=== PATIENT | male | born 1960 | race Caucasian/White ===

== ENCOUNTER 2024-09-17 14:26 | Emergency (ER) | payer MEDICARE, SELFPAY ==
[2024-09-17 14:45] VITALS: BP 138/73; PULSE 103; RESP 20; TEMP 36.5; O2SAT 98
--- NOTE | 2024-09-17 15:52 | ED_ITS ---
HPI - Extremity Problem General Chief complaint: Extremity Problem,Nontraumatic Stated complaint: Right Ankle /Foot Swelling/Left Toes Source: patient Mode of arrival: ambulatory Limitations: no limitations History of Present Illness HPI Narrative: Pt presents for evaluation of right ankle and heel pain. Symptom onset two days ago. He has a history of gout and this feels similar. Pain is constant, sharp, 9/10 in severity. He was previously on allopurinol but stopped taking it because he wanted to see if he no longer needed it. He has decreased ROM. Movement makes his pain worse. He has a chronic deformity in the right first MTP joint pain. He is not taking any medication for his symptoms. He drinks alcohol about two days per week, with twelve drinks at a time. Related Data Home Medications Medication Instructions Recorded Confirmed pantoprazole 40 mg tablet,delayed mg PO 09/17/24 release tamsulosin 0.4 mg capsule mg PO 09/17/24 tizanidine 2 mg tablet mg 09/17/24 venlafaxine 150 mg mg PO 09/17/24 capsule,extended release 24 hr Allergies Allergy/AdvReac Type Severity Reaction Status Date / Time No Known Allergies Allergy Verified 09/17/24 14:53 Review of Systems Review of Systems: CONSTITUTIONAL: Denies fever, chills, or sweats. EYES: Denies visual changes, redness, or discharge. ENT: Denies rhinorrhea, congestion, sore throat, or otalgia. CARDIOVASCULAR: Denies chest pain, palpitations, or edema. RESPIRATORY: Denies cough or dyspnea. GASTROINTESTINAL: Denies abdominal pain, nausea, vomiting, or diarrhea. GENITOURINARY: Denies dysuria or hematuria. SKIN: Denies rash or itching. MUSCULOSKELETAL:Reports pain in the right ankle and heel NEUROLOGIC: Denies headache, numbness, dizziness, or weakness. PSYCHIATRIC: Denies anxiety or depression. [facility] Past Medical History Medical History Gout Surgical History Surgical History No pertinent past surgical history Family History Family History Mother Family history non-contributory Social History Social History Alcohol intake: current Drinks per week: 24 Substance use: never Gender identity (if verbalized by the patient): Male Exam Narrative: GENERAL: Well-appearing, well-nourished, and in no acute distress. HEAD: Normocephalic, atraumatic. EYES: PERRLA and EOMI. ENT: Nares clear, no rhinorrhea or epistaxis. Mucous membranes moist. Oropharynx without tonsillar hypertrophy exudate or other lesions. Bilateral TMs pearly andrews nonbulging NECK: Supple. No adenopathy or masses. No carotid bruits or JVD CHEST: Clear to auscultation. No respiratory distress. No wheezes rales or rhonchi HEART: Regular rate and rhythm. No murmur heard. Normal peripheral pulses. ABDOMEN: Soft, nontender, nondistended, normal active bowel sounds. EXTREMITIES: There is a visible deformity at the 1st right MTP joint. There is welling present to the right ankle. Anterior aspect of the right ankle is tender to palpation. Decreased dorsi and plantar flexion of the right foot secondary to pain. SKIN: Warm, dry, no rash. NEURO: No focal deficits. Alert and oriented x3. PSYCH: Normal mood and affect. Course Course Emergency Course: This is a 64-year-old male who presented for evaluation of pain in the right ankle and heel. He has a history of gout and this feels similar. I did offer to perform an x-ray. He declined. I think this is reasonable. It is a classic gout presentation. Will discharge with prednisone and [place]. Follow-up with primary provider. Limit alcohol as it may be contributing. Go to the ER for worsening symptoms. Pt in agreement with plan of care. Level of Care: Express Care Visit Vital Signs Vital signs: Vital Signs Temperature 36.5 C 09/17/24 14:45 Pulse Rate 103 H 09/17/24 14:45 Respiratory Rate 20 09/17/24 14:45 Blood Pressure 138/73 09/17/24 14:45 Pulse Oximetry 98 09/17/24 14:45 Temperature 36.5 C 09/17/24 14:45 Pulse Rate 103 H 09/17/24 14:45 Respiratory Rate 20 09/17/24 14:45 Blood Pressure 138/73 09/17/24 14:45 Pulse Oximetry 98 09/17/24 14:45 Discharge Plan Discharge Clinical Impression: Acute gout of right ankle Patient Disposition: Home, Self-Care Condition: Stable Instructions: Antibiotic Form, Gout (ED) Patient Language: Kyrgyz Prescriptions: New prednisone 50 mg tablet 50 mg PO DAILY Qty: 5 0RF hydrocodone-acetaminophen 5-325 mg tablet 1 - 2 tablet PO Q6H PRN (Reason: pain) Qty: 20 0RF No Action tizanidine 2 mg tablet venlafaxine 150 mg capsule,extended release 24hr PO tamsulosin 0.4 mg capsule PO pantoprazole 40 mg tablet,delayed release (DR/EC) PO Follow-up/Referrals: Yuri Clark MD [Physician] - Time of Disposition: 15:31
== END 2024-09-17 15:35 | disposition home or self-care (01) ==
PROVIDERS: Emergency Provider Nurse Practitioner
DX: M10.9 Gout, unspecified (principal)
CPT/HCPCS: 99203; G0463

== ENCOUNTER 2025-03-29 13:25 | Emergency (ER) | payer MEDICARE, SELFPAY ==
[2025-03-29 13:34] VITALS: BP 120/86; PULSE 87; RESP 20; TEMP 36.2; O2SAT 99
--- OUTSIDE RECORDS SUMMARY | 2025-03-29 13:40 | XMS_ITS | Encounter Summary ---
Author Organization [facility] Address [address] [place] [address] Phone Care Team Providers Care Machine Puller Name Role Phone Bruno Prather MD Primary Care Provider [phone] Angie Arnold DO Primary Care Provider [phone] Moshe Carrasco LIVESTOCK TRADER, GRAIN ELEVATOR CLERK Unavailable [phone] Agatha Vallecillo LIVESTOCK TRADER, GRAIN ELEVATOR CLERK Unavailable [phone] Reason for Visit * Reason Comments Medication Refill Encounter Details Date Type Department Care Team (Late st Contact Info) Description 05/05/2023 Refill [facility] - Family Medicine [facility] [address] [place] [id number] Bruno Prather MD [address] [place] [address] Medication Refill Social History Tobacco Use Types Packs/Day Years Used Date Smoking Tobacco: Former Cigarettes Q uit: 02/23/2019 Smokeless Tobacco: Never Alcohol Use Standard Drinks/Week Comments Not Currently 6 (1 standard drink = 0.6 oz pur e alcohol) PHQ-2 Answer Date Recorded Total Score - Questions 1-9 13 05/11 Sexually Active Control Partners Comments Not Currently Sex and Gender Information Value Date Recorded Sex Assigned at Not on file Legal Sex Male 11:38 PM CDT Gender Identity Not on file Sexual Orientation Not on file documented as of this encounter Plan of Treatment Upcoming Encounters Date Type Department Care Team (Late st Contact Info) Description 04/30/2025 1:20 PM CDT Office Visit [facility] - Family Medicine - [place] [address] [place] [address] Angie Arnold DO 2 [facility] [place] [address] 07/23/2025 1:00 PM CDT Office Visit [facility] - Pulmonology & Sleep Medicine - [place] [address] [place] [id number] Agatha Vallecillo APRN, GRAIN ELEVATOR CLERK #[address] [address] documented as of this encounter Visit Diagnoses Not on filedocumented in this encounter Additional Health Concerns Assessment Noted Time PHQ-9 Depression Total Score: 13 022 1:00 PM CDT documented as of this encounter Care Teams Machine Puller Relationship Specialty Start Date End Date Bruno Prather MD PCP - General Family Medicine 10/28/20 03/21/24 Angie Arnold DO 2 [facility] ED [address] [address] PCP - General Family Medicine 03/24/24 Moshe Carrasco APRN, GRAIN ELEVATOR CLERK [address] [place] [address] Nurse Practitioner Advanced Practice Nurse 05/11/24 Agatha Vallecillo APRN, GRAIN ELEVATOR CLERK #[address] [address] Nurse Practitioner Advanced Practice Nurse 06/15/24 documented as of this encounter
--- OUTSIDE RECORDS SUMMARY | 2025-03-29 13:40 | XMS_ITS | Clinical Summary ---
Author Organization [facility] Address [address] [place] [address] Phone Care Team Providers Care Floor Director Name Role Phone Angie Arnold Primary Care Provider [phone] Moshe Carrasco TIMBER DEADENER, OTR [employer] TRUCK DRIVER Unavailable [phone] Agatha Vallecillo TIMBER DEADENER, OTR [employer] TRUCK DRIVER Unavailable Allergies No known active allergies Medications Cyanocobalamin (VITAMIN B-12 PO) Take by mouth. Active finasteride (PROSCAR) 5 MG TabletIndication s:Benign non-nodular prostatic hyperplasia with lower urinary tract symptoms Take 1 Tablet by mouth daily. 90 Tablet 1 09/26/2024 Active pantoprazole (PROTONIX) 40 MG Tablet Delayed Response Take 1 Tablet by mouth daily. 90 Tablet 1 09/26/2024 Active tamsulosin (FLOMAX) 0.4 MG Capsule Take 1 Capsule by mouth daily. 90 Capsule 1 09/26/2024 Active venlafaxine (EFFEXOR-XR) 150 MG CAPSULE SR 24 HR Take 1 Capsule by mouth daily. 90 Capsule 1 09/26/2024 Active Naproxen Sodium (Aleve) 220 MG Capsule Take by mouth. Active Active Problems Problem Noted Date Diagnosed Date Personal history of tobacco use 06/15/2024 Arthritis of right hip 09/08/2021 Overview (11/20/2021): Last Assessment & Plan: Patient has end-stage arthritis of the right hip with collapse of the femoral head and complete joint space obliteration radiographically. He has minimal function of the hip is markedly debilitated. He wants proceed with hip replacement surgery having failed respond to conservative measures. Patient will be enrolled in a total hip protocol. Preoperative labs will be checked to assess him for any potential wound healing issues. He is to be taking iron two weeks prior to surgery in preparation for perioperative blood loss. The risks of hip replacement surgery include infection, incisional numbness, neurovascular compromise, blood loss, blood clots, limb length inequality, fracture, dislocation, where with possible need for revision, wound he has since, medical and anesthetic risks including . 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/2015): L FVC 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 Voice disturbance Overview (08/21/2015): Spastic Dysphonia Resolved Problems Problem Noted Date Diagnosed Date Resolved Date Snoring 06/15/2024 10/23/2024 Hypertension 05/04/2016 05/21/2022 Hyperlipidemia 02/24/2014 05/21/2022 Overview (04/03/2021): HYPERLIPIDEMIA NEC/NOS Encounters Date Type Department Care Team Description 01/23/2025 10:00 AM CDT Office Visit [facility] - Pulmonology & Sleep Medicine - [place] [address] [place] [address] Agatha Vallecillo, TIMBER DEADENER, CEFERINO GOPAL on CPAP (Primary Dx); Personal history of tobacco use Discharge Disposition: Discharged to home or Selfcare 01/23/2025 Travel from Last 3 Months Immunizations Immunization Administration Dates Next Due Influenza Vaccine 07/09/2011 Influenza Vaccine, Quadrivalent, PF 07/22/2017,1 10/12/2015 PUR FLU 3+ YRS PRES FREE QUAD IM 08/12/2016 Family History Medical History Relation Name Comments Alcohol Abuse Father Diabetes Mother Relation Name Status Comments Father Mother Social History Tobacco Use Types Packs/Day Years Used Date Smoking Tobacco: Former Cigarettes Q uit: 02/23/2019 Smokeless Tobacco: Never Tobacco Cessation:Counseling Given: No Alcohol Use Standard Drinks/Week Comments Not Currently 6 (1 standard drink = 0.6 oz pur e alcohol) [facility] Utilities Answer Date Recorded In the past 12 months has e electric, gas, oil, or water company threatened to shut off services in your home? No 03/24/2024 Social Connection and Isolation Panel Answer Date Recorded In a typical week, how many times do you talk on the phone with family, friends, or neighbors? Once a week 03/24/2024 How often do you get together with friends or re latives? Twice a week 03/24/2024 Attends Restorationist Services Not on file 03/24 Active Member of Clubs or Organizations Not on f ile 03/24/2024 Attends Club or Organization Meetings Not on eriberto e 03/24/2024 Marital Status Not on file 03/24/2024 AUDIT-C Answer Date Recorded Q1: How often do you have a drink containing alc ohol? 2-4 times a month 03/24/2024 Q2: How many drinks containi ng alcohol do you have on a typical day when you are drinking? 1 or 2 03/24/2024 Frequency of Binge Drinking Not on file 03/11 Overall Financial Resource Strain (CARDIA) Answe r Date Recorded How hard is it for you to pa y for the very basics like food, housing, medical care, and heating? Not hard at all 03/24/2024 PHQ-2 Answer Date Recorded Total Score - Questions 1-9 0 05/11 [facility] [place] [facility] Occupat ional Health - Occupational Stress Questionnaire Answer Date Recorded Do you feel stress - tense, restless, nervous, or anxious, or unable to sleep at night because your mind is troubled all the time - these days? Only a little 03/24/2024 Exercise Vital Sign Answer Date Recorde d On average, how many days pe r week do you engage in moderate to strenuous exercise (like a brisk walk)? 3 days 03/24/2024 On average, how many minutes do you engage in exercise at this level? 30 min 03/24/2024 Hunger Vital Sign Answer Date Recorded Within the past 12 months, y ou worried that your food would run out before you got the money to buy more. Sometimes true Within the past 12 months, t he food you bought just didn't last and you didn't have money to get more. Sometimes true PRAPARE - Transportation Answer Date Re corded In the past 12 months, has l ack of transportation kept you from medical appointments or from getting medications? Yes 03/11 In the past 12 months, has l ack of transportation kept you from meetings, work, or from getting things needed for daily living? Yes 03/24/2024 Housing Stability Vital Sign Answer Dilan e Recorded In the last 12 months, was t here a time when you were not able to pay the mortgage or rent on time? Yes 03/24/2024 Number of Times Moved in the Last Year Not on fi le 03/24/2024 At any time in the past 12 m [place], were you homeless or living in a snf (including now)? No 03/24/2024 Education Answer Date Recorded What is the highest level of school you have completed or the highest degree you have received? 12th grade 06/30/2023 Sexually Active Control Partners Comments Not Currently Sex and Gender Information Value Date Recorded Sex Assigned at Not on file Legal Sex Male 11:38 PM CDT Gender Identity Not on file Sexual Orientation Not on file Last Filed Vital Signs Vital Sign Reading Time Taken Comments Blood Pressure 122/68 01/23/2025 9:49 AM CDT Pulse 79 01/23/2025 9:49 AM CDT Temperature 36.6 C (97.8 F) 01/23/2025 9:49 AM CDT Respiratory Rate 20 01/23/2025 9:49 AM CDT Oxygen Saturation 95% 01/23/2025 9:49 AM CDT Inhaled Oxygen Concentration - - Weight 128.7 kg (283 lb 12.8 oz) 01/23/2025 9:49 AM CDT Height 175.3 cm (5' 9) 01/23/2025 9:49 AM CDT Body Mass Index 41.91 01/23/2025 9:49 AM CDT Plan of Treatment Upcoming Encounters Date Type Department Care Team (Late st Contact Info) Description 04/30/2025 1:20 PM CDT Office Visit [facility] - Family Medicine - [place] [address] [place] [address] Angie Arnold, DO 2 [facility]. [address] [place] [address] 07/23/2025 1:00 PM CDT Office Visit [facility] - Pulmonology & Sleep Medicine - [place] [address] [place] [address] Agatha Vallecillo APRN, OTR [employer] TRUCK DRIVER [address]2 [facility] [address] [place] [address] Health Maintenance Due Date Last Done Comments TdaP Immunization 1962 Cologuard 2007 Immunochemical Fecal Occult Blood 2007 Pneumococcal Immunization (50+ years) (1 of 1 - PCV) 2012 Zoster Immunization (1 of 2) 2012 Respiratory Syncytial Virus (RSV) Immunization (Adult) (1 - Risk 60-74 years 1-dose series) 2022 Colonoscopy 12/19/2023 12/18/2013 Colorectal Cancer Screening 12/19/2023 Influenza Immunization Discontinued 7, 08/12/2016, 08/12/2016, Additional history exists Hepatitis C Virus (HCV) Screening Completed 09/13/2023 PSA Discussion Completed 03/29/2024, 01/2023, 05/04/2016 Hepatitis B Immunization Aged Out No longer eligible based on patient's age to complete this topic Human Papillomavirus (HPV) Immunization Aged Out No longer eligible based on patient's age to complete this topic Meningococcal Immunization (ACWY) Aged Out No longer eligible based on patient's age to complete this topic Rotavirus Immunization Aged Out No lo nger eligible based on patient's age to complete this topic SARS-COV-2 Immunization Discontinued Procedures Procedure Name Priority Date/Time Associated Diagnosis Comments PSA SCREEN Routine 03/29/2024 12:14 PM CDT Routine adult health maintenance HEPATITIS C ANTIBODY Routine 09/13/2023 1:50 PM ANALYSIS SPECIALIST Need for hepatitis C screening test HM COLONOSCOPY Routine 12/18/2013 from Last 3 Months or Most Recently Relevant to Health Maintenance Results * PSA SCREEN (03/29/2024 12:14 PM CDT) PSA SCREEN, TOTAL 0.87 <4.00 ng/mL 03/29/2024 2:16 PM CDT [facility] Blood Venipuncture / Unknown 03/29/2024 12:14 PM CDT 03/29/2024 1:12 PM CDT Narrative [facility] - 03/29/2024 2:16 PM CDT The ALINITY Total PSA assay is a Chemiluminescent Microparticle Immunoassay (CMIA) for the quantitative determination of total PSA (both free PSA and PSA complexed to [id number]) in human serum. Total PSA values obtained with different assay methods, including Willard PSA assays, cannot be used interchangeably. us Angie Arnold DO CHEMISTRY ORDERABLES Final Re sult [facility] [address] [place] [address] * HEPATITIS C ANTIBODY (09/13/2023 1:50 PM ANALYSIS SPECIALIST) hepatitis C antibody 0.08 <1 S/CO [facility] ARCH [id number] B 09/13/2023 9:19 PM ANALYSIS SPECIALIST [facility] Comment: Signal/Cutoff ratio < 0.79 is Nondetected Signal/Cutoff ratio 0.80-0.99 is Grayzone Signal/Cutoff ratio > 0.99 is Detected Supplemental assays are recommended if signal/cutoff ratio is >/=1.00. Signal/cutoff ratio result >/= 5.00 is 97% predictive of positivity for recombinant immunoblot assay (RIBA) and will be reported to the [place] Department of Public Health as required. Blood Venipuncture / Unknown 09/13/2023 1:50 PM ANALYSIS SPECIALIST 09/13/2023 1:50 PM ANALYSIS SPECIALIST Bruno Prather MD CHEMISTRY ORDERABLES Final Resul t [facility] [address] [place] [address], [place] * COLONOSCOPY (12/18/2013) Fletcher Brooke DO PROCEDURE/MINOR SURGICAL ORDERA BLES Final Result from Last 3 Months or Most Recently Relevant to Health Maintenance Insurance MEDICARE C [facility] Care Teams Floor Director Relationship Specialty Start Date End Date Angie Arnold DO 2 [facility] [address] [place] [address] PCP - General Family Medicine 03/24/24 CarrascoMoshe zapata APRN, OTR [employer] TRUCK DRIVER [address] [place] [address] Nurse Practitioner Advanced Practice Nurse 05/11/24 Agatha Vallecillo, MATEUS, OTR [employer] TRUCK DRIVER [address] [address] Nurse Practitioner Advanced Practice Nurse 06/15/24
--- OUTSIDE RECORDS SUMMARY | 2025-03-29 13:40 | XMS_ITS | Encounter Summary ---
Author Organization [facility] Address [address] [place] [address] Phone Care Team Providers Care Railroad Yard Worker Name Role Phone Bruno Prather MD Primary Care Provider [phone] Angie Arnold DO Primary Care Provider Moshe Carrasco CLEARANCE REPRESENTATIVE, EXTENSION DIVISION DIRECTOR Unavailable [phone] Agatha Vallecillo CLEARANCE REPRESENTATIVE, EXTENSION DIVISION DIRECTOR Unavailable [phone] Reason for Visit * Reason Comments Medication Refill Encounter Details Date Type Department Care Team (Late st Contact Info) Description 05/18/2022 Refill [facility] - Family Medicine [facility] [address] [place] [phone] Lincoln Rosario, MATEUS, EXTENSION DIVISION DIRECTOR [address] [address] Medication Refill Social History Tobacco Use Types [...] on file Sexual Orientation Not on file COVID-19 Exposure Response Date Recorded In the last 10 days, have yo u been in contact with someone who was confirmed or suspected to have Coronavirus/COVID-19? No / Unsure 05/21/2022 1:00 PM CDT documented as of this encounter Miscellaneous Notes * Telephone Encounter - Daniela Matthews RN - 05/19/2022 3:16 PM CDT Medication failed the protocol, provider to review and approve the medication order if appropriate. Requested Prescriptions Pending Prescriptions Disp Refills venlafaxine (EFFEXOR-XR) 150 MG CAPSULE SR 24 HR [Pharmacy Med Name: VENLAFAXINE HCL ER 150 MG CAP]90 Capsule 1 Sig: TAKE 1 CAPSULE BY MOUTH EVERY DAY SNRI (6 Month Refill Only) Protocol Failed - 05/18/2022 6:29 PM Failed - Patient has established therapy with Serotonin-Norepinephrine Reuptake Inhibitors for at least 6 months Passed - Visit with relevant provider in past 6 months or upcoming 90 days Recent Visits Date Type Provider Dept 12/30/21 Office Visit Lincoln Rosario APRN, EXTENSION DIVISION DIRECTOR [facility] 11/20/21 Office Visit Bruno [facility] Showing recent visits within past 182 days and meeting all other requirements Future Appointments Date Type Provider Dept 05/21/22 Appointment Bruno Prather MD [facility] Showing future appointments within next 90 days and meeting all other requirements Passed - Has an encounter in the past 6 months with a depression or anxiety visit diagnosis documented in this encounter Plan of Treatment Upcoming Encounters Date Type Department Care Team (Late st Contact Info) Description 04/30/2025 1:20 PM CDT Office Visit [facility] Family Medicine - [place] [address] [place] [address] Angie Arnold, DO 2 [facility]. [address] [place] [address] 07/23/2025 1:00 PM CDT Office Visit [facility] - Pulmonology & Sleep Medicine [facility] [address] [place] [address] Agatha Vallecillo APRN, CEFERINO [address] [facility] [address] [place] [address] documented as of this encounter Visit Diagnoses Diagnosis Anxiety Anxiety state, unspecified documented in this encounter Additional Health Concerns Assessment Noted Time PHQ-9 Depression Total Score: 0 07/18/20 20 3:34 PM CDT documented as of this encounter Care Teams Railroad Yard Worker Relationship Specialty Start Date End Date Bruno Prather MD PCP - General Family Medicine 10/28/20 03/21/24 Angie Arnold DO 2 [facility] ED [address] [address] PCP - General Family Medicine 03/24/24 Moshe Carrasco APRN, CEFERINO [address] [facility] [address] Nurse Practitioner Advanced Practice Nurse 05/11/24 Agatha Vallecillo APRN, CEFERINO [address] [address] Nurse Practitioner Advanced Practice Nurse 06/15/24 documented as of this encounter
--- OUTSIDE RECORDS SUMMARY | 2025-03-29 13:40 | XMS_ITS | Encounter Summary ---
Author Organization [facility] Address [address] [place] [address] Phone Care Team Providers Care Shuttle Car Operator Name Role Phone Bruno Prather MD Primary Care Provider [phone] Angie Arnold DO Primary Care Provider [phone] Moshe Carrasco LAYOUT WORKER, ASSEMBLER EQUIPMENT Unavailable + [phone] Agatha Vallecillo LAYOUT WORKER, ASSEMBLER EQUIPMENT Unavailable [phone] Reason for Visit * Reason Comments Medication Refill Encounter Details Date Type Department Care Team (Late st Contact Info) Description 01/04/2023 Refill [facility] Medical Group - Family Medicine [facility] #2 [place] [address] Larry Vásquez MD #[address] [address] Medication Refill Social History Tobacco Use Types [...] Recorded In the last 10 days, have natalie u been in contact with someone who was confirmed or suspected to have Coronavirus/COVID-19? No / Unsure 01/04/2023 2:10 PM CDT documented as of this encounter Miscellaneous Notes * Telephone Encounter - Daniela Matthews RN - 01/05/2023 8:07 AM CDT Per nursing clinical judgement, provider to review and approve the medication(s) order(s) if appropriate. Requested Prescriptions Pending Prescriptions Disp Refills tamsulosin (FLOMAX) 0.4 MG Capsule [Pharmacy Med Name: TAMSULOSIN HCL 0.4 MG CAPSULE] 90 Capsule 2 Sig: TAKE 1 CAPSULE BY MOUTH EVERY DAY Benign Prostatic Hyperplasia Medications Protocol Passed - 01/04/2023 5:47 PM Passed - Visit with relevant provider in past 12 months or upcoming 90 days Recent Visits Date Type Provider Dept 01/04/23 Office Visit Bruno Prather MD [facility] 10/08/22 Office Visit Lincoln Rosario APRN, CEFERINO [facility] 05/21/22 Office Visit Bruno Prather MD [facility] Showing recent visits within past 365 days and meeting all other requirements Future Appointments No visits were found meeting these conditions. Showing future appointments within next 90 days and meeting all other requirements documented in this encounter Plan of Treatment Upcoming Encounters Date Type Department Care Team (Late st Contact Info) Description 04/30/2025 1:20 PM CDT Office Visit [facility] Medical [facility] - Family Medicine - [place] [address]2 [place] [address] Angie Arnold, DO 2 [facility]. [address] [place] [address] 07/23/2025 1:00 PM CDT Office Visit [facility] Medical [facility] - Pulmonology & Sleep Medicine - [place] [address]2 [place] [address] Agatha Vallecillo APRN, ASSEMBLER EQUIPMENT #2 [facility] [address] [place] [address] documented as of this encounter Visit Diagnoses Not on filedocumented in this encounter Additional Health Concerns Assessment Noted Time PHQ-9 Depression Total Score: 13 022 1:00 PM CDT documented as of this encounter Care Teams Shuttle Car Operator Relationship Specialty Start Date End Date Bruno Prather MD PCP - General Family Medicine 10/28/20 03/21/24 Angie Arnold DO 2 [facility] [place] [address] PCP - General Family Medicine 03/24/24 Moshe Carrasco APRN, CEFERINO #2 [place] [address] Nurse Practitioner Advanced Practice Nurse 05/11/24 Agatha Vallecillo APRN, CEFERINO #2 [facility] [address] [place] [address] Nurse Practitioner Advanced Practice Nurse 06/15/24 documented as of this encounter
--- OUTSIDE RECORDS SUMMARY | 2025-03-29 13:40 | XMS_ITS | Encounter Summary ---
Author Organization [facility] Address [address] [place] [address] Phone Care Team Providers Care Creative Services Specialist Name Role Phone Bruno Prather MD Primary Care Provider Angie Arnold DO Primary Care Provider Moshe Carrasco HOTEL MAINTENANCE TECHNICIAN, BRINE PROCESS OPERATOR Unavailable [phone] Agatha Vallecillo HOTEL MAINTENANCE TECHNICIAN, BRINE PROCESS OPERATOR Unavailable [phone] Reason for Visit * Reason Comments Medication Refill Encounter Details Date Type Department Care Team (Late st Contact Info) Description 01/07/2022 Refill [facility] Medical Group - Family Medicine [facility] #2 [place] [id number] Bruno Prather MD [address]1 [place] [address] Medication Refill Social History Tobacco Use Types Packs/Day Years Used Date Smoking Tobacco: Former Cigarettes Q uit: 02/23/2019 Smokeless Tobacco: Never Alcohol Use Standard Drinks/Week Comments Not Currently 6 (1 standard drink = 0.6 oz pur e alcohol) PHQ-2 Answer Date Recorded Total Score - Questions 1-9 0 05/2020 Sexually Active Control Partners Comments Not Currently Sex and Gender Information Value Date Recorded Sex Assigned at Not on file Legal Sex Male 11:38 PM CDT Gender Identity Not on file Sexual Orientation Not on file COVID-19 Exposure Response Date Recorded In the last 10 days, have natalie dodd been in contact with someone who was confirmed or suspected to have Coronavirus/COVID-19? No / Unsure 12/30/2021 4:08 PM CDT documented as of this encounter Miscellaneous Notes * Telephone Encounter - Daniela Matthews RN - 01/08/2022 7:50 AM CDT Medication failed the protocol, provider to review and approve the medication order if appropriate. Requested Prescriptions Pending Prescriptions Disp Refills cyclobenzaprine (FLEXERIL) 5 MG Tablet [Pharmacy Med Name: CYCLOBENZAPRINE 5 MG TABLET] 90 Tablet 0 Sig: TAKE 1 TABLET BY MOUTH THREE TIMES A DAY NEEDED FOR MUSCLE SPASMS Not Delegated - Muscle Relaxants Protocol Failed - 01/07/2022 12:41 PM Failed - This refill cannot be delegated Passed - Visit with relevant provider in past 12 months or upcoming 90 days Recent Visits Date Type Provider Dept 12/30/21 Office Visit Lincoln Rosario APRN, CEFERINO [facility] 11/20/21 Office Visit Bruno Prather MD [facility] 07/25/21 Office Visit Bruno Prather MD [facility] 04/03/21 [facility] 01/17/21 Office Visit Bruno Prather MD [facility] Showing recent visits within past 365 days and meeting all other requirements Future Appointments No visits were found meeting these conditions. Showing future appointments within next 90 days and meeting all other requirements documented in this encounter Plan of Treatment Upcoming Encounters Date Type Department Care Team (Late st Contact Info) Description 04/30/2025 1:20 PM CDT Office Visit [facility] Medical Group - Family Medicine - [place] [address] [place] [address] Angie Arnold, DO 2 [facility] ED [facility]. [address] [place] [address] 07/23/2025 1:00 PM CDT [facility] - [place] #2 [place] [address] Agatha Vallecillo APRN, BRINE PROCESS OPERATOR #2 [facility] [address] [place] [address] documented as of this encounter Visit Diagnoses Not on filedocumented in this encounter Additional Health Concerns Assessment Noted Time PHQ-9 Depression Total Score: 0 07/18/20 20 3:34 PM CDT documented as of this encounter Care Teams Creative Services Specialist Relationship Specialty Start Date End Date Bruno Prather MD PCP - General Family Medicine 10/28/20 03/21/24 Angie Arnold DO 2 [facility] ED [facility] [address] [place] [address] PCP - General Family Medicine 03/24/24 Moshe Carrasco APRN, BRINE PROCESS OPERATOR #2 [place] [address] Nurse Practitioner Advanced Practice Nurse 05/11/24 Agatha Vallecillo APRN, BRINE PROCESS OPERATOR #2 [facility] [address] [place] [address] Nurse Practitioner Advanced Practice Nurse 06/15/24 documented as of this encounter
--- OUTSIDE RECORDS SUMMARY | 2025-03-29 13:41 | XMS_ITS | Encounter Summary ---
Author Organization [facility] Address [address] [place] [address] Phone Care Team Providers Care Directory Compiler Name Role Phone Angie Arnold DO Primary Care Provider [phone] Moshe Carrasco MVA REACTOR OPERATOR, FLIGHT ENGINEER MANAGER Unavailable + [phone] Agatha Vallecillo MVA REACTOR OPERATOR, FLIGHT ENGINEER MANAGER Unavailable [phone] Reason for Visit * Reason Comments Medication Refill Encounter Details Date Type Department Care Team (Late st Contact Info) Description 03/24/2024 Refill [facility] Medical Group - Family Medicine [facility] #2 [place] [address] Bruno Prather MD #1 [place] [address] Medication Refill Social History Tobacco Use Types Packs/Day Years Used Date Smoking Tobacco: Former Cigarettes Q uit: 02/23/2019 Smokeless Tobacco: Never Alcohol Use Standard Drinks/Week Comments Not Currently 6 (1 standard drink = 0.6 oz pur e alcohol) [facility] Utilities Answer Date Recorded In the past 12 months has [employer] electric, gas, oil, or water company threatened to shut off services in your home? No 03/24/2024 Social Connection and Isolation Panel Answer Date Recorded In a typical week, how many times do you talk on the phone with family, friends, or neighbors? Once a week 03/24/2024 How often do you get together with friends or re latives? Twice a week 03/24/2024 Attends [employer] Not on file 03/24 Active Member [...] Recorded Total Score - Questions 1-9 0 08/0 12/2022 [facility] - Occupational Stress Questionnaire Answer Date Recorded [...] any time in the past 12 m [facility], were you homeless or living in a detention (including now)? No 03/24/2024 Education Answer Date [...] on file documented as of this encounter Functional Status * Q1: How often do you have a drink containing alcohol? Answer Date of Assessment Author 2-4 times a month 03/24/2024 12:54 PM CDT [facility] [place] * Q2: How many drinks containing alcohol do you have on a typical day when you are drinking? Answer Date of Assessment Author 1 or 2 03/24/2024 12:54 PM T [facility] [place] * Question Answer Date of Assessment Author Little interest or pleasure in doing things Not at all 03/24/2024 12:54 PM JULEET [place] Crooks MA Feeling down, depressed, or hopeless Not at all 03/24/2024 12:54 PM CDT Ann Marie Crooks MA * Over the past 2 weeks, how often have you been bothered by any of the following problems? Question Answer Date of Assessment Author Patient Health Questionnaire-2 Score 0 03/24/2024 12:54 PM CDT Sierra Crooks MA documented as of this encounter Miscellaneous Notes * Telephone Encounter - Daniela Matthews RN - 03/24/2024 5:01 PM CDT Medication(s) refilled and signed per [facility] Chronic Medication Refill Standing Order for Pediatricand Adult Patients. Requested Prescriptions Pending Prescriptions Disp Refills pantoprazole (PROTONIX) 40 MG Tablet Delayed Response [Pharmacy Med Name: PANTOPRAZOLE SOD DR 40 MGTAB] 90 Tablet 1 Sig: TAKE 1 TABLET BY MOUTH EVERY DAY Proton Pump Inhibitors Protocol Passed - 03/24/2024 3:45 PM Passed - Visit with relevant provider in past 12 months or upcoming 90 days Recent Visits Date Type Provider Dept 09/13/23 Office Visit Bruno Prather MD [facility] [place] 06/30/23 Office Visit Lincoln Rosario APRN, CEFER[facility] 05/13/23 Office Visit Bruno Pr[facility] MD [facility] Showing recent visits within past 365 days and meeting all other requirements Today's Visits Date Type Provider Dept 03/24/24 Office Visit Angie Arnold DO [facility] [place] Showing today's visits and meeting all other requirements Future Appointments Date Type Provider Dept 05/29/24 Appointment Angie Arnold DO [facility] [place] Showing future appointments within next 90 days and meeting all other requirements documented in this encounter Plan of Treatment Upcoming Encounters Date Type Department Care Team (Late st Contact Info) Description 04/30/2025 1:20 PM CDT Office Visit [facility] Group - Family Medicine - [place] [address]2 [place] [address] Angie Arnold DO 2 [facility] [address] [place] [address] 07/23/2025 1:00 PM CDT Office Visit [facility] - Pulmonology & Sleep Medicine - [place] #2 [place] [address] Agatha Vallecillo APRN, FLIGHT ENGINEER MANAGER #[address] [facility] [address] [place] [address] documented as of this encounter Visit Diagnoses Not on filedocumented in this encounter Additional Health Concerns Assessment Noted Time PHQ-9 Depression Total Score: 0 05/13/20 7:00 AM CDT documented as of this encounter Care Teams Directory Compiler Relationship Specialty Start Date End Date Angie Arnold DO 2 [facility] ED [facility]. [address] [place] [address] PCP - General Family Medicine 03/24/24 Moshe Carrasco APRN, FLIGHT ENGINEER MANAGER #2 [place] [address] Nurse Practitioner Advanced Practice Nurse 05/11/24 Agatha Vallecillo APRN, FLIGHT ENGINEER MANAGER #[address] [facility] [address] [place] [address] Nurse Practitioner Advanced Practice Nurse 06/15/24 documented as of this encounter
--- OUTSIDE RECORDS SUMMARY | 2025-03-29 13:41 | XMS_ITS | Encounter Summary ---
Author Organization [facility] Address [address] [place] [address] Phone Care Team Providers Care Plastic Manager Name Role Phone Bruno Prather MD Primary Care Provider Angie Arnold DO Primary Care Provider [phone] Moshe Carrasco ANVIL WORKER, AFTERSCHOOL BABYSITTER Unavailable [phone] Agatha Vallecillo ANVIL WORKER, AFTERSCHOOL BABYSITTER Unavailable [phone] Reason for Visit * Reason Comments Medication Refill Encounter Details Date Type Department Care Team (Late st Contact Info) Description 01/03/2024 Refill [facility] Medical Group - Family Medicine [facility] #2 [place] [address] Bruno Prather MD #1 [place] [address] Medication Refill Social History Tobacco Use Types Packs/Day Years Used Date Smoking Tobacco: Former Cigarettes Q uit: 02/23/2019 Smokeless Tobacco: Never Alcohol Use Standard Drinks/Week Comments Not Currently 6 (1 standard drink = 0.6 oz pur e alcohol) PHQ-2 Answer Date Recorded Total Score - Questions 1-9 0 08/0 12/2022 Education Answer Date Recorded What is the [...] on file documented as of this encounter Miscellaneous Notes * Telephone Encounter - Daniela Matthews RN - 01/03/2024 11:09 AM CDT Medication failed the protocol, provider to review and approve the medication order if appropriate. Requested Prescriptions Pending Prescriptions Disp Refills tamsulosin (FLOMAX) 0.4 MG Capsule [Pharmacy Med Name: TAMSULOSIN HCL 0.4 MG CAPSULE] 90 Capsule 1 Sig: TAKE 1 CAPSULE BY MOUTH EVERY DAY Benign Prostatic Hyperplasia Medications Protocol Passed - 01/03/2024 1:06 AM Passed - Visit with relevant provider in past 12 months or upcoming 90 days Recent Visits Date Type Provider Dept 09/13/23 Office Visit Bruno Prather MD [facility] 06/30/23 Office Visit Lincoln Rosario APRN, CEFER[facility] [place] 05/13/23 Office Visit Bruno Prather MD [facility] 01/04/23 Office Visit Bruno Prather MD [facility] Showing recent visits within past 365 days and meeting all other requirements Future Appointments Date Type Provider Dept 03/13/24 Appointment Bruno Prather MD [facility] Showing future appointments within next 90 days and meeting all other requirements venlafaxine (EFFEXOR-XR) 150 MG CAPSULE SR 24 HR [Pharmacy Med Name: VENLAFAXINE HCL ER 150 MG CAP]90 Capsule 1 Sig: TAKE 1 CAPSULE BY MOUTH EVERY DAY SNRI (6 Month Refill Only) Protocol Failed - 01/03/2024 1:06 AM Failed - Has an encounter in the past 6 months with a depression or anxiety visit diagnosis Passed - Visit with relevant provider in past 6 months or upcoming 90 days Recent Visits Date Type Provider Dept 09/13/23 Office Visit Bruno Prather MD [facility] Showing recent visits within past 182 days and meeting all other requirements Future Appointments Date Type Provider Dept 03/13/24 Appointment Bruno Prather MD [facility] Showing future appointments within next 90 days and meeting all other requirements Passed - Patient has established therapy with Serotonin-Norepinephrine Reuptake Inhibitors for at least 6 months documented in this encounter Plan of Treatment Upcoming Encounters Date Type Department Care Team (Late st Contact Info) Description 04/30/2025 1:20 PM CDT Office Visit [facility] Medical [facility] Family Medicine - [place] #2 [place] [address] Angie Arnold DO 2 [facility] [address] [place] [address] 07/23/2025 1:00 PM CDT Office Visit [facility] - Pulmonology & Sleep Medicine - [place] #2 [place] [address] Agatha Vallecillo APRN, AFTERSCHOOL BABYSITTER #[address] [address] documented as of this encounter Visit Diagnoses Not on filedocumented in this encounter Additional Health Concerns Assessment Noted Time PHQ-9 Depression Total Score: 0 05/13/20 23 7:00 AM CDT documented as of this encounter Care Teams Plastic Manager Relationship Specialty Start Date End Date Bruno Prather MD PCP - General Family Medicine 10/28/20 03/21/24 Angie Arnold DO 2 [facility] [address] [place] [address] PCP - General Family Medicine 03/24/24 Moshe Carrasco APRN, AFTERSCHOOL BABYSITTER #2 [place] [address] Nurse Practitioner Advanced Practice Nurse 05/11/24 Agatha Vallecillo APRN, AFTERSCHOOL BABYSITTER #2 [place] [id number] Nurse Practitioner Advanced Practice Nurse 06/15/24 documented as of this encounter
--- OUTSIDE RECORDS SUMMARY | 2025-03-29 13:41 | XMS_ITS | Encounter Summary ---
Author Organization [facility] Address [address] [place] [address] Phone Care Team Providers Care Label Printing Machinist Name Role Phone Bruno Prather MD Primary Care Provider Angie Arnold DO Primary Care Provider [phone] Moshe Carrasco RADIOCHEMICAL TECHNICIAN, FOUNDATION COORDINATOR Unavailable [phone] Agatha Vallecillo RADIOCHEMICAL TECHNICIAN, FOUNDATION COORDINATOR Unavailable [phone] Reason for Visit * Reason Comments Medication Refill Encounter Details Date Type Department Care Team (Late st Contact Info) Description 07/27/2022 Refill [facility] Medical Group - Family Medicine [facility] #2 [place] [id number] Bruno Prather MD #1 [place] [address] Medication Refill Social History Tobacco Use Types [...] Telephone Encounter - Daniela Matthews RN - 07/27/2022 3:28 PM CDT Name from pharmacy: VENLAFAXINE HCL ER 150 MG CAP Will file in chart as: venlafaxine (EFFEXOR-XR) 150 MG CAPSULE SR 24 HR The original prescription was discontinued on 05/21/2022 by Bruno Prather MD documented in this encounter Plan of Treatment Upcoming Encounters Date Type Department Care Team (Late st Contact Info) Description 04/30/2025 1:20 PM CDT [facility] Medicine - [place] #2 [place] [address] Angie Arnold DO 2 [facility] [address] [place] [address] 07/23/2025 1:00 PM CDT [facility] - [place] #2 [place] [address] Agatha Vallecillo APRN, FOUNDATION COORDINATOR #2 [facility] [address] [place] [address] documented as of this encounter Visit Diagnoses Diagnosis Anxiety Anxiety state, unspecified documented in this encounter Additional Health Concerns Assessment Noted Time PHQ-9 Depression Total Score: 13 022 1:00 PM CDT documented as of this encounter Care Teams Label Printing Machinist Relationship Specialty Start Date End Date Bruno Prather MD PCP - General Family Medicine 10/28/20 03/21/24 Angie Arnold DO 2 [facility] [address] [place] [address] PCP - General Family Medicine 03/24/24 Moshe Carrasco APRN, FOUNDATION COORDINATOR #2 [place] [address] Nurse Practitioner Advanced Practice Nurse 05/11/24 Agatha Vallecillo APRN, FOUNDATION COORDINATOR #[address] [address] Nurse Practitioner Advanced Practice Nurse 06/15/24 documented as of this encounter
--- OUTSIDE RECORDS SUMMARY | 2025-03-29 13:41 | XMS_ITS | Encounter Summary ---
Author Organization [facility] Address [address] [place] [address] Phone Care Team Providers Care Hearing Specialist Name Role Phone Bruno Prather MD Primary Care Provider [phone] Angie Arnold DO Primary Care Provider Moshe Carrasco GEOLOGY FACULTY MEMBER, CITY SURVEYOR Unavailable [phone] Agatha Vallecillo GEOLOGY FACULTY MEMBER, CITY SURVEYOR Unavailable [phone] Reason for Visit * Reason Comments Medication Refill Encounter Details Date Type Department Care Team (Late st Contact Info) Description 06/29/2021 Refill [facility] Medical Group - Family Medicine [facility] [address] [place] [phone] Larry Vásquez MD #[address] [address] Medication Refill Social History Tobacco Use Types Packs/Day Years Used Date Smoking Tobacco: Former Cigarettes Q uit: 02/23/2019 Smokeless Tobacco: Never Alcohol Use Standard Drinks/Week Comments Yes 6 (1 standard drink = 0.6 oz [...] encounter Miscellaneous Notes * Telephone Encounter - Niki Hickey RN - 06/30/2021 1:58 PM CDT Per nursing clinical judgement, provider to review and approve the medication(s) order(s) if appropriate. Requested Prescriptions Pending Prescriptions Disp Refills sildenafil citrate (VIAGRA) 100 MG Tablet [Pharmacy Med Name: SILDENAFIL 100 MG TABLET] 12 Tablet 4 Sig: TAKE 1 TABLET BY MOUTH EVERY DAY NEEDED FOR ERECTILE DYSFUNCTION Erectile Dysfunction Medication Protocol Passed - 06/29/2021 5:21 PM Passed - Visit with relevant provider in past 12 months or upcoming 90 days Recent Visits Date Type Provider Dept 04/03/21 Office Visit Bruno Prather MD [facility] 01/17/21 Office Visit Bruno Prather MD [facility] 10/28/20 Office Visit Larry Vásquez MD [facility] 07/18/20 Office Visit Larry Vásquez MD [facility] Showing recent visits within past 365 days and meeting all other requirements Future Appointments Date Type Provider Dept 07/25/21 Appointment Bruno Prather MD [facility] Showing future appointments within next 90 days and meeting all other requirements Passed - Absence of nitrates on med list Passed - Erectile dysfunction on problem list documented in this encounter Plan of Treatment Upcoming Encounters Date Type Department Care Team (Late st Contact Info) Description 04/30/2025 1:20 PM CDT Office Visit [facility] Medical Group - Family Medicine - [place] [address] [place] [address] Angie Arnold, DO [address] [address] 07/23/2025 1:00 PM CDT Office Visit [facility] - Pulmonology & Sleep Medicine - [place] [address] [place] [address] Agatha Vallecillo APRN, CITY SURVEYOR #2 [facility] [address] [place] [address] documented as of this encounter Visit Diagnoses Not on filedocumented in this encounter Additional Health Concerns Assessment Noted Time PHQ-9 Depression Total Score: 0 07/18/20 20 3:34 PM CDT documented as of this encounter Care Teams Hearing Specialist Relationship Specialty Start Date End Date Bruno Prather MD PCP - General Family Medicine 10/28/20 03/21/24 Angie Arnold DO 2 [facility] [address] [place] [address] PCP - General Family Medicine 03/24/24 Moshe Carrasco APRN, CITY SURVEYOR [address]2 [place] [address] Nurse Practitioner Advanced Practice Nurse 05/11/24 Agatha Vallecillo APRN, CEFERINO #2 [facility] [address] [place] [address] Nurse Practitioner Advanced Practice Nurse 06/15/24 documented as of this encounter
--- OUTSIDE RECORDS SUMMARY | 2025-03-29 13:41 | XMS_ITS | Encounter Summary ---
Author Organization [facility] Address [address] [place] [address] Phone Care Team Providers Care Orthodontic Band Maker Name Role Phone Bruno Prather MD Primary Care Provider Angie Arnold DO Primary Care Provider Moshe Carrasco MANUFACTURING PLANT TECHNICIAN, REPAIRER SHOE STICKS Unavailable + [phone] Agatha Vallecillo MANUFACTURING PLANT TECHNICIAN, REPAIRER SHOE STICKS Unavailable [phone] Reason for Visit * Reason Comments Medication Refill Encounter Details Date Type Department Care Team (Late st Contact Info) Description 08/19/2021 Refill [facility] Medical Group - Family Medicine [facility] [address]2 [place] [phone] Bruno Prather MD [address] [place] [address] Medication Refill Social History Tobacco Use Types [...] Exposure Response Date Recorded In the last month, have you been in contact with someone who was confirmed or suspected to have Coronavirus / COVID-19? No / Unsure 07/25/2021 2:09 PM CDT documented as of this encounter Miscellaneous Notes * Telephone Encounter - Niki Hickey RN - 08/19/2021 12:57 PM SECURITY OPERATIONS MANAGER Medication failed the protocol, provider to review and approve the medication order if appropriate. Requested Prescriptions Pending Prescriptions Disp Refills cyclobenzaprine (FLEXERIL) 5 MG Tablet [Pharmacy Med Name: CYCLOBENZAPRINE 5 MG TABLET] 90 Tablet 0 Sig: TAKE 1 TABLET BY MOUTH THREE TIMES A DAY NEEDED FOR MUSCLE SPASMS Not Delegated - Muscle Relaxants Protocol Failed - 08/19/2021 11:30 AM Failed - This refill cannot be delegated Passed - Visit with relevant provider in past 12 months or upcoming 90 days Recent Visits Date Type Provider Dept 07/25/21 Office [facility] 04/03/21 Office Visit Bruno Prather MD [facility] 01/17/21 [facility] 10/28/20 Office Visit Larry Vásquez MD [facility] Showing recent visits within past 365 days and meeting all other requirements Future Appointments No visits were found meeting these conditions. Showing future appointments within next 90 days and meeting all other requirements RITY OPERATIONS MANAGER documented in this encounter Plan of Treatment Upcoming Encounters Date Type Department Care Team (Late st Contact Info) Description 04/30/2025 1:20 PM CDT Office Visit [facility] Medical [facility] - Family Medicine - [place] [address] [place] [address] Angie Arnold, DO 2 [facility]. [address] [place] [address] 07/23/2025 1:00 PM CDT Office Visit [facility] - Pulmonology & Sleep Medicine - [place] [address] [place] [address] Agatha Vallecillo APRN, REPAIRER SHOE STICKS #2 [facility] [address] [place] [address] documented as of this encounter Visit Diagnoses Not on filedocumented in this encounter Additional Health Concerns Assessment Noted Time PHQ-9 Depression Total Score: 0 07/18/20 20 3:34 PM CDT documented as of this encounter Care Teams Orthodontic Band Maker Relationship Specialty Start Date End Date Bruno Prather MD PCP - General Family Medicine 10/28/20 03/21/24 Angie Arnold DO 2 [facility] ED [address] [address] PCP - General Family Medicine 03/24/24 Moshe Carrasco APRN, REPAIRER SHOE STICKS [address] [place] [address] Nurse Practitioner Advanced Practice Nurse 05/11/24 Agatha Vallecillo APRN, REPAIRER SHOE STICKS #2 [facility] [address] [place] [address] Nurse Practitioner Advanced Practice Nurse 06/15/24 documented as of this encounter
--- OUTSIDE RECORDS SUMMARY | 2025-03-29 13:41 | XMS_ITS | Referral Summary ---
Author Organization [facility] Address [address] [place] [address] Care Team Providers Care Fire Hydrant Mechanic Name Role Phone Bruno Prather MD Primary Care Provider [phone] Allergies Active Allergy Reactions Criticality Noted Date Comments Rocuronium [facility] Hives,Hypotension High 10/01/[address] (PROTONIX) 40 mg EC tabletIndication s:Treatment of Non-Bleeding Gastric Disorder Take 1 tablet by mouth every morning 0 Active tamsulosin (FLOMAX) 0.4 mg extended release capsuleIndicatio ns:benign prostatic hyperplasia with lower urinary tract sx Take 1 capsule (0.4 mg total) by mouth every morning 0 Active venlafaxine XR (EFFEXOR-XR) 150 mg 24 hr capsuleIndicatio ns:Anxiety with Depression Take 1 capsule by mouth every morning 2 Active busPIRone (BUSPAR) 5 mg tablet Take 1 tablet (5 mg total) by mouth 3 (three) times a day 3 Active sildenafiL (VIAGRA) 100 mg tabletIndication s:Erectile Dysfunction TAKE 1 TABLET BY MOUTH EVERY DAY NEEDED FOR ERECTILE DYSFUNCTION 3 Active ibuprofen 200 mg tab/cap Take 3 tablet/capsule (600 mg total) by mouth every 6 (six) hours as needed for pain Active HYDROcodone-acet aminophen (NORCO) 10-325 mg per tabletIndication s:Pain Take 1 tablet by mouth every 4 (four) hours as needed for pain Do not drive while taking, do not take with alcohol, take with food. 30 tablet 3 Active mupirocin (BACTROBAN) 2 % ointmentIndicati ons:S/P total left hip arthroplasty Apply topically 3 (three) times a day 30 g 1 3 Active Active Problems Problem Noted Date Diagnosed Date Benign prostatic hyperplasia without lower urinary tract symptoms 07/15/2023 Primary osteoarthritis of left hip 06/11/2023 Arthritis of left hip 06/10/2023 Assessment & Plan (06/10/2023 4:07 PM CDT): Patient has end-stage arthritis of the left hip with complete joint space obliteration. He is markedly impaired in requires use of a walker. He is not responded conservative measures and medications providing no relief. He is developing shortening of the leg and as such would recommend hip replacement surgery. He will be enrolled in a total hip protocol. Will check preoperative labs to help determine if there is any factors that could affect wound healing that are correctable prior to surgery. The risks of hip replacement surgery include infection, incisional numbness, neurovascular compromise, blood loss, blood clots, limb length inequality, fracture, dislocation, where with possible need for revision, wound he has since, medical and anesthetic risks including . Patient should be taking iron supplements two weeks prior to surgery in preparation for perioperative blood loss Arthritis of right hip 09/08/2021 Assessment & Plan (09/08/2021 11:10 AM PEER TUTOR): Patient has end-stage arthritis of the right [...] since, medical and anesthetic risks including . Chronic rhinitis 02/19/2021 Overview (02/19/2021): PNAR Gastroesophageal reflux disease without esophagi tis 02/19/2021 Tinnitus 02/19/2021 Temporomandibular qjmba-mmmj-yvuqnrfggve syndrom e 02/19/2021 Grade 1 isthmic spondylolisthesis at L5-S1 02/19 Lumbar spondylosis with right L5 radiculopathy 0 02/19/2021 Anxiety and depression 03/28/2018 Dysuria 05/18/2017 Drug-induced erectile dysfunction 08/12/2016 Lipid disorder 12/12/2015 Osteoarthritis of shoulder 12/12/2015 Hypertension 02/24/2014 Overview (01/14/2017): HYPERTENSION NOS Hyperlipidemia 02/24/2014 Overview (01/14/2017): HYPERLIPIDEMIA NEC/NOS Social History Tobacco Use Types Packs/Day Years Used Date Smoking Tobacco: Former Cigarettes Q uit: 04/02/2021 Smokeless Tobacco: Never OASIS D0700: Social Isolation Answer Da te Recorded Frequency of experiencing loneliness or isolatio n Never 07/29/2023 OASIS A1250: Transportation Answer Date Recorded Lack of Transportation (Medical) No 07/29/2023 Lack of Transportation (Non-Medical) No 07/29/2023 Patient Unable or Declines to Respond No 07/29/2023 OASIS B1300: Health Literacy Answer Dilan e Recorded Frequency of needing help to read materials from doctor or pharmacy Never 07/29/2023 Social Connection and Isolat ion Panel [NHANES] Answer Date Recorded In a typical week, how many times do you talk on the phone with family, friends, or neighbors? More than three times a week 07/15/2023 How often do you get togethe r with friends or relatives? More than three times a week 07/15/2023 How often do you attend chur ch or sabianism services? Never 07/15/2023 Do you belong to any clubs o r organizations such as anabaptism groups, unions, fraternal or athletic groups, or school groups? No 07/15/2023 How often do you attend meet ings of the clubs or organizations you belong to? Never 07/15/2023 Are you , , di vorced, , never , or living with a partner? Living with partner 07/15/2023 AUDIT-C Answer Date Recorded Q1: How often do you have a drink containing alc ohol? 2-3 times a week 07/14/2023 Q2: How many drinks containi ng alcohol do you have on a typical day when you are drinking? 5 or 6 07/14/2023 Q3: How often do you have si x or more drinks on one occasion? Monthly 07/14/2023 Overall Financial Resource Strain (CARDIA) Answe r Date Recorded How hard is it for you to pa y for the very basics like food, housing, medical care, and heating? Not hard at all 07/15/2023 Hunger Vital Sign Answer Date Recorded Within the past 12 months, y ou worried that your food would run out before you got the money to buy more. Never true 07/15/20 23 Within the past 12 months, t he food you bought just didn't last and you didn't have money to get more. Never true 07/15/2023 PRAPARE - Transportation Answer Date Re corded In the past 12 months, has l ack of transportation kept you from medical appointments or from getting medications? No 02/2023 In the past 12 months, has l ack of transportation kept you from meetings, work, or from getting things needed for daily living? No 07/15/2023 Housing Stability Vital Sign Answer Dilan e Recorded In the last 12 months, was t here a time when you were not able to pay the mortgage or rent on time? No 07/15/2023 In the last 12 months, how many places have you lived? 1 07/15/2023 In the last 12 months, was t here a time when you did not have a steady place to sleep or slept in a usp (including now)? No 07/15/2023 Personal Safety Answer Date Recorded Have you ever been in or are you currently in a harmful physical or emotional relationship or is someone making you feel afraid or unsafe? Denies 07/14/2023 Sex and Gender Information Value Date Recorded Sex Assigned at Not on file Legal Sex Male 11:50 PM PEER TUTOR Gender Identity Not on file Sexual Orientation Not on file Last Filed Vital Signs Vital Sign Reading Time Taken Comments Blood Pressure 140/80 07/26/2023 10:47 AM CDT Pulse 80 07/26/2023 10:47 AM CDT Temperature 35.8 C (96.5 F) 07/26/2023 10:47 AM CDT Respiratory Rate 20 07/26/2023 10:47 AM CDT Oxygen Saturation 96% 07/26/2023 10:47 AM CDT Inhaled Oxygen Concentration - - Weight 116.1 kg (256 lb) 08/17/2023 2:02 PM PEER TUTOR Height 177.8 cm (5' 10) 08/17/2023 2:02 PM PEER TUTOR Body Mass Index 36.73 08/17/2023 2:02 PM PEER TUTOR Plan of Treatment Not on file Medical Devices Implanted Type Area Business Risk Consultant Device Identifier Shelf Expiration Date Model / Serial / Lot [employer] [id number] 58mm Limit Hole Color Coded Hip G Hemisphere Offset Shell - [id number] Implanted:Qty: 1 on 10/01/2021 by Fletcher Silverman MD at [facility] Right: Hip [employer] 07/09/2031 [id number] / / [id number] [employer] [id number] Trilogy 6.5mm 25mm Self Tap Screw Bone - [id number] Implanted:Qty: 1 on 10/01/2021 by Fletcher Silverman MD at [facility] Right: Hip [employer] 08/26/2031 [id number] / / [id number] [employer] [id number] 36mm Lumen Hip G Liner Acetabular Longevity Sterile Latex Free - [id number] Implanted:Qty: 1 on 10/01/2021 by Fletcher Silverman MD at [facility] Right: Hip [employer] 08/01/[id number] / / [id number] [employer] 650-1057 G7 36mm Hip Head Femoral Biolox Delta Option - [id number] Implanted:Qty: 1 on 10/01/2021 by Fletcher Silverman MD at [facility] Right: Hip [employer] 01/01/2031 650-1057 / / [id number] [employer] [id number] Echo Bi-Metric 13mm 145mm Noncollar Reduce Proximal Profile Press - [id number] Implanted:Qty: 1 on 10/01/2021 by Fletcher Silverman MD at [facility] Right: Hip [employer] 06/24/2031 [id number] / / [id number] [employer] 650-1066 G7 Type 1 Hip Standard Offset Taper Sleeve Centering Titanium - [id number] Implanted:Qty: 1 on 10/01/2021 by Fletcher Silverman MD at [facility] Right: Hip [employer] 07/14/2031 650-1066 / / [id number] [employer] Echo Bi-Metric 11mm 135mm Noncollar Reduce Proximal Profile Press [id number] - [id number] Implanted:Qty: 1 on 07/14/2023 by Fletcher Silverman MD at [facility] Left: Hip [employer] [id number] 04/09/2033 [id number] / / [id number] [employer] Trilogy 6.5mm 25mm Self Tap Screw Bone [id number] - [id number] Implanted:Qty: 1 on 07/14/2023 by Fletcher Silverman MD at [facility] Left: Hip [employer] [id number] 04/21/2033 [id number] / / [id number] [employer] G7 36mm Hip Head Femoral Biolox Delta Option 650-1057 - [id number] Implanted:Qty: 1 on 07/14/2023 by Fletcher Silverman MD at [facility] Left: Hip [employer] [id number] 02/03/2033 650-1057 / / [id number] [employer] G7 Type 1 Hip -6mm Offset Taper Sleeve Centering Titanium Biolox 650-1064 - [id number] Implanted:Qty: 1 on 07/14/2023 by Fletcher Silverman MD at [facility] Left: Hip [employer] [id number] 11/10/2032 650-1064 / / [id number] [employer] G7 56mm Limit Hole Color Coded Hip F Hemisphere Offset Shell [id number] - [id number] Implanted:Qty: 1 on 07/14/2023 by Fletcher Silverman MD at [facility] Left: Hip [employer] [id number] 04/20/2033 [id number] / / [id number] [employer] Trilogy 6.5mm 25mm Self Tap Screw Bone [id number] - [id number] Implanted:Qty: 1 on 07/14/2023 by Fletcher Silverman MD at [facility] Left: Hip [employer] [id number] 04/23/2033 [id number] / / [id number] [employer] G7 36mm Lumen Hip F Liner Acetabular Longevity Sterile Latex Free [id number] - [id number] Implanted:Qty: 1 on 07/14/2023 by Fletcher Silverman MD at [facility] Left: Hip [employer] [id number] 03/10/[id number] / / [id number] Insurance [facility] [address] UHC MEDICARE ADVANTAGE UHC MEDICARE ADVANTAGE UHC MEDICARE ADVANTAGE Advance Directives For more information, please contact: [phone] * Full Code (Latest Code Status on File) Date Activated Date Inactivated Comments 07/14/2023 1:47 PM 07/15/2023 6:40 PM * Full Code Date Activated Date Inactivated Comments 10/01/2021 3:44 PM 10/03/2021 6:09 PM Care Teams Fire Hydrant Mechanic Relationship Specialty Start Date End Date Bruno Prather MD [address] [place] [address] PCP - General Family Medicine 05/26/23
--- OUTSIDE RECORDS SUMMARY | 2025-03-29 13:41 | XMS_ITS | Encounter Summary ---
Author Organization [facility] Address [address] [place] [address] Phone Care Team Providers Care Office Aide Name Role Phone Bruno Prather MD Primary Care Provider [phone] Angie Arnold DO Primary Care Provider [phone] Moshe Carrasco REGISTERED TRAVEL NURSE, FUR SORTER Unavailable [phone] Agatha Vallecillo REGISTERED TRAVEL NURSE, FUR SORTER Unavailable [phone] Reason for Visit * Reason Comments Medication Refill Encounter Details Date Type Department Care Team (Late st Contact Info) Description 10/30/2021 Refill [facility] Medical Group - Family Medicine [facility] #2 [place] [phone] Bruno Prather MD #1 [place] [address] Medication Refill Social History Tobacco Use Types [...] Telephone Encounter - Daniela Matthews RN - 10/31/2021 7:48 AM CST Medication failed the protocol, provider to review and approve the medication order if appropriate. Requested Prescriptions Pending Prescriptions Disp Refills cyclobenzaprine (FLEXERIL) 5 MG Tablet [Pharmacy Med Name: CYCLOBENZAPRINE 5 MG TABLET] 90 Tablet 0 Sig: TAKE 1 TABLET BY MOUTH THREE TIMES A DAY NEEDED FOR MUSCLE SPASMS Not Delegated - Muscle Relaxants Protocol Failed - 10/30/2021 2:55 PM Failed - This refill cannot be delegated Passed - Visit with relevant provider in past 12 months or upcoming 90 days Recent Visits Date Type Provider Dept 07/25/21 Office Visit Bruno Prather MD [facility] 04/03/21 Office Visit Bruno Prather MD [facility] 01/17/21 Office Visit Bruno Prather MD [facility] Showing recent visits within past 365 days and meeting all other requirements Future Appointments No visits were found meeting these conditions. Showing future appointments within next 90 days and meeting all other requirements ING MACHINE OPERATOR documented in this encounter Plan of Treatment Upcoming Encounters Date Type Department Care Team (Late st Contact Info) Description 04/30/2025 1:20 PM CDT Office Visit [facility] Medical Group - Family Medicine - [place] [address] [place] [address] Angie Arnold, DO 2 [facility]. [address] [place] [address] 07/23/2025 1:00 PM CDT Office Visit [facility] - Pulmonology & Sleep Medicine - [place] [facility] #[address] [place] [address] Agatha Vallecillo APRN, FUR SORTER #2 [facility] [address] [place] [address] documented as of this encounter Visit Diagnoses Not on filedocumented in this encounter Additional Health Concerns Assessment Noted Time PHQ-9 Depression Total Score: 0 07/18/20 20 3:34 PM CDT documented as of this encounter Care Teams Office Aide Relationship Specialty Start Date End Date Bruno Prather MD PCP - General Family Medicine 10/28/20 03/21/24 Angie Arnold DO 2 [facility] [address] [place] [address] PCP - General Family Medicine 03/24/24 Moshe Carrasco APRN, FUR SORTER #[address] [place] [address] Nurse Practitioner Advanced Practice Nurse 05/11/24 Agatha Vallecillo APRN, FUR SORTER #2 [facility] [address] [place] [address] Nurse Practitioner Advanced Practice Nurse 06/15/24 documented as of this encounter
--- OUTSIDE RECORDS SUMMARY | 2025-03-29 13:41 | XMS_ITS | Encounter Summary ---
Author Organization [facility] Address [address] [place] [address] Phone Care Team Providers Care Director Product Development Name Role Phone Bruno Prather MD Primary Care Provider Angie Arnold DO Primary Care Provider [phone] Moshe Carrasco RESEARCH AND DEVELOPMENT RESEARCHER, FUNCTIONAL TESTER TYPEWRITERS Unavailable [phone] Agatha Vallecillo RESEARCH AND DEVELOPMENT RESEARCHER, FUNCTIONAL TESTER TYPEWRITERS Unavailable [phone] Reason for Visit * Reason Comments Medication Refill Encounter Details Date Type Department Care Team (Late st Contact Info) Description 10/18/2022 Refill [facility] - Family Medicine [facility] [address]2 [place] [id number] Bruno Prather MD [address] [place] [address] Medication Refill Social History Tobacco Use Types [...] suspected to have Coronavirus/COVID-19? No / Unsure 10/16/2022 9:32 AM WATER LEAK REPAIRER documented as of this encounter Miscellaneous Notes * Telephone Encounter - Iveth Brody RN - 10/19/2022 9:36 AM WATER LEAK REPAIRER Per nursing clinical judgement, provider to review and approve the medication(s) order(s) if appropriate. Requested Prescriptions Pending Prescriptions Disp Refills sildenafil citrate (VIAGRA) 100 MG Tablet [Pharmacy Med Name: SILDENAFIL 100 MG TABLET] 12 Tablet 4 Sig: TAKE 1 TABLET BY MOUTH EVERY DAY NEEDED FOR ERECTILE DYSFUNCTION Erectile Dysfunction Medication Protocol Passed - 10/18/2022 4:33 PM Passed - Visit with relevant provider in past 12 months or upcoming 90 days Recent Visits Date Type Provider Dept 10/08/22 Office Visit Lincoln Rosario APRN, [facility] 05/21/22 Office Visit Bruno Prather MD [facility] 12/30/21 Office Visit Lincoln Rosario APRN, [facility] 11/20/21 Office Visit Bruno Prather MD [facility] Showing recent visits within past 365 days and meeting all other requirements Future Appointments Date Type Provider Dept 11/26/22 Appointment Bruno Prather MD [facility] Showing future appointments within next 90 days and meeting all other requirements Passed - Absence of nitrates on med list Passed - Erectile dysfunction on problem list R LEAK REPAIRER documented in this encounter Plan of Treatment Upcoming Encounters Date Type Department Care Team (Late st Contact Info) Description 04/30/2025 1:20 PM CDT [facility] - Family Medicine - [place] [address] [place] [address] Angie Arnold, DO 2 [facility] ED [place] [place] [address] 07/23/2025 1:00 PM CDT Office Visit [facility] - Pulmonology & Sleep Medicine - [place] [address] [place] [address] Agatha Vallecillo APRN, FUNCTIONAL TESTER TYPEWRITERS #2 [facility] [address] [place] [address] documented as of this encounter Visit Diagnoses Not on filedocumented in this encounter Additional Health Concerns Assessment Noted Time PHQ-9 Depression Total Score: 13 022 1:00 PM CDT documented as of this encounter Care Teams Director Product Development Relationship Specialty Start Date End Date Bruno Prather MD PCP - General Family Medicine 10/28/20 03/21/24 Angie Arnold DO 2 [facility] ED [facility] [address] [place] [address] PCP - General Family Medicine 03/24/24 Moshe Carrasco APRN, FUNCTIONAL TESTER TYPEWRITERS #[address] [place] [address] Nurse Practitioner Advanced Practice Nurse 05/11/24 Agatha Vallecillo APRN, FUNCTIONAL TESTER TYPEWRITERS [facility] [facility] [facility] [address] [place] [address] Nurse Practitioner Advanced Practice Nurse 06/15/24 documented as of this encounter
--- OUTSIDE RECORDS SUMMARY | 2025-03-29 13:41 | XMS_ITS | Encounter Summary ---
Author Organization [facility] Address [address] [place] [address] Phone Care Team Providers Care Puppet Developer Name Role Phone Bruno Prather MD Primary Care Provider [phone] Angie Arnold DO Primary Care Provider [phone] Moshe Carrasco AGILE COACH, BATTERY WRECKER OPERATOR Unavailable [phone] Agatha Vallecillo AGILE COACH, BATTERY WRECKER OPERATOR Unavailable [phone] Reason for Visit * Reason Comments Medication Refill Encounter Details Date Type Department Care Team (Late st Contact Info) Description 04/23/2021 Refill [facility] - Family Medicine [facility] [place] [address] [place] [id number] Larry Vásquez MD #[address] [address] Medication Refill Social History Tobacco Use Types [...] have Coronavirus / COVID-19? No / Unsure 04/03/2021 3:35 PM CDT documented as of this encounter Miscellaneous Notes * Telephone Encounter - Daniela Matthews RN - 04/23/2021 11:23 AM CDT Per nursing clinical judgement, provider to review and approve the medication(s) order(s) if appropriate. Requested Prescriptions Pending Prescriptions Disp Refills ibuprofen (MOTRIN) 800 MG Tablet [Pharmacy Med Name: IBUPROFEN 800 MG TABLET] 270 Tablet 3 Sig: TAKE 1 TABLET BY MOUTH EVERY 8 HOURS [facility] Analgesics: NSAIDS - OTC Passed - 04/23/2021 12:02 AM Passed - Valid encounter within last 12 months Past Office Visits Recent Outpatient Visits 2 weeks ago Chronic bilateral low back pain without sciatica [facility] Bruno Garay MD 3 months ago GOPAL on CPAP [facility] Bruno Garay MD 5 months ago Benign non-nodular prostatic hyperplasia with lower urinary tract symptoms [facility] Larry Coyle MD 9 months ago Dysuria [facility] Larry Coyle MD 10 months ago Acute bilateral low back pain with bilateral sciatica [facility] Lincoln Vasquez APN, BATTERY WRECKER OPERATOR Upcoming Appointments Future Appointments In 3 months Bruno Prather MD [facility] PARADICHLOROBENZENE MACHINE OPERATOR - Recent and Past Visits Recent Visits Date Type Provider Dept 04/03/21 Office Visit Bruno Prather MD [facility] 01/17/21 Office Visit Bruno Prather MD [facility] 10/28/20 Office Visit Larry Vásquez MD [facility] 07/18/20 Office Visit Larry Vásquez MD [facility] 06/07/20 Office Visit Lincoln Rosario APN, CNP [facility] 04/25/20 Office Visit Larry Vásquez MD [facility] Showing recent visits within past 460 days with a meds authorizing provider and meeting all other requirements Future Appointments No visits were found meeting these conditions. Showing future appointments within next 90 days with a meds authorizing provider and meeting all other requirements documented in this encounter Plan of Treatment Upcoming Encounters Date Type Department Care Team (Late st Contact Info) Description 04/30/2025 1:20 PM CDT Office Visit [facility] - Family Medicine - [place] [facility] [place] [address] Angie Arnold, DO 2 [facility] ED [facility] [address] [place] [address] 07/23/2025 1:00 PM CDT Office Visit [facility] - Pulmonology & Sleep Medicine - [place] [address] [place] [address] Agatha Vallecillo APRN, BATTERY WRECKER OPERATOR #2 [facility] [address] [place] [address] documented as of this encounter Visit Diagnoses Not on filedocumented in this encounter Additional Health Concerns Assessment Noted Time PHQ-9 Depression Total Score: 0 07/18/20 20 3:34 PM CDT documented as of this encounter Care Teams Puppet Developer Relationship Specialty Start Date End Date Bruno Prather MD PCP - General Family Medicine 10/28/20 03/21/24 Angie Arnold DO 2 [facility] ED [facility] [address] [place] [address] PCP - General Family Medicine 03/24/24 Moshe Carrasco AGILE COACH, BATTERY WRECKER OPERATOR #[address] [facility] [facility] [address] [facility] [place] [address] Nurse Practitioner Advanced Practice Nurse 05/11/24 Agatha Vallecillo, MATEUS, BATTERY WRECKER OPERATOR #[address] [address] Nurse Practitioner Advanced Practice Nurse 06/15/24 documented as of this encounter
--- OUTSIDE RECORDS SUMMARY | 2025-03-29 13:41 | XMS_ITS | Encounter Summary ---
Author Organization [facility] Address [address] [place] [address] Phone Care Team Providers Care Service Desk Agent Name Role Phone Bruno Prather MD Primary Care Provider [phone] Angie Arnold DO Primary Care Provider [phone] Moshe Carrasco DESK REPRESENTATIVE, AUTOMOBILE WRECKER Unavailable [phone] Agatha Vallecillo DESK REPRESENTATIVE, AUTOMOBILE WRECKER Unavailable [phone] Reason for Visit * Reason Comments Medication Refill Encounter Details Date Type Department Care Team (Late st Contact Info) Description 10/03/2021 Refill [facility] - Family Medicine [facility] #[address] [place] [phone] Bruno Prather MD [address] [place] [address] Medication Refill Social History Tobacco Use Types [...] Telephone Encounter - Daniela Matthews RN - 10/06/2021 11:09 AM CST Medication failed the protocol, provider to review and approve the medication order if appropriate. Requested Prescriptions Pending Prescriptions Disp Refills FLUoxetine (PROzac) 10 MG Capsule [Pharmacy Med Name: FLUOXETINE HCL 10 MG CAPSULE] 180 Capsule 1 Sig: TAKE 2 CAPSULES BY MOUTH EVERY DAY SSRI (6 Month Refill Only) Protocol Failed - 10/03/2021 2:45 PM Failed - Has an encounter in the past 6 months with a depression, anxiety, adjustment disorder, OCD, or PTSD visit diagnosis Passed - Visit with relevant provider in past 6 months or upcoming 90 days Recent Visits Date Type Provider Dept 07/25/21 Office Visit Bruno Prather MD [facility] Showing recent visits within past 182 days and meeting all other requirements Future Appointments No visits were found meeting these conditions. Showing future appointments within next 90 days and meeting all other requirements Passed - Patient has established therapy with SSRI for at least 6 months cyclobenzaprine (FLEXERIL) 5 MG Tablet [Pharmacy Med Name: CYCLOBENZAPRINE 5 MG TABLET] 90 Tablet 0 Sig: TAKE 1 TABLET BY MOUTH THREE TIMES A DAY NEEDED FOR MUSCLE SPASMS Not Delegated - Muscle Relaxants Protocol Failed - 10/03/2021 2:45 PM Failed - This refill cannot be delegated Passed - Visit with relevant provider in past 12 months or upcoming 90 days Recent Visits Date Type Provider Dept 07/25/21 Office Visit Bruno Prather MD [facility] 04/03/21 Office Visit Bruno Prather MD [facility] 01/17/21 Office Visit Bruno Prather MD [facility] 10/28/20 Office Visit Larry Vásquez MD [facility] Showing recent visits within past 365 days and meeting all other requirements Future Appointments No visits were found meeting these conditions. Showing future appointments within next 90 days and meeting all other requirements OM SANDER documented in this encounter Plan of Treatment Upcoming Encounters Date Type Department Care Team (Late st Contact Info) Description 04/30/2025 1:20 PM CDT Office Visit [facility] [address] [facility] [place] [address] Angie Arnold DO 2 [facility] [address] [place] [address] 07/23/2025 1:00 PM CDT Office Visit [facility] - Pulmonology & Sleep Medicine - [place] #[address] [place] [address] Agatha Vallecillo APRN, AUTOMOBILE WRECKER #[address] [address] documented as of this encounter Visit Diagnoses Not on filedocumented in this encounter Additional Health Concerns Assessment Noted Time PHQ-9 Depression Total Score: 0 07/18/20 20 3:34 PM CDT documented as of this encounter Care Teams Service Desk Agent Relationship Specialty Start Date End Date Bruno Prather MD PCP - General Family Medicine 10/28/20 03/21/24 Angie Arnold DO 2 [facility] [place] [address] PCP - General Family Medicine 03/24/24 Moshe Carrasco APRN, AUTOMOBILE WRECKER #[facility] [address] Nurse Practitioner Advanced Practice Nurse 05/11/24 Agatha Vallecillo APRN, AUTOMOBILE WRECKER [address] [place] [address] Nurse Practitioner Advanced Practice Nurse 06/15/24 documented as of this encounter
--- OUTSIDE RECORDS SUMMARY | 2025-03-29 13:41 | XMS_ITS | Clinical Summary ---
Author Organization [facility] Address [address] [place] [address] Care Team Providers Care Day Worker Name Role Phone Bruno Prather MD Primary Care Provider [phone] Allergies Active Allergy Reactions Criticality Noted Date Comments Rocuronium Howard Hives,Hypotension High 10/01/[address] (PROTONIX) [...] 09/08/2021 Assessment & Plan (09/08/2021 11:10 AM LIVESTOCK BRANDS INSPECTOR): Patient has end-stage arthritis of the right [...] without esophagi tis 02/19/2021 Tinnitus 02/19/2021 Temporomandibular ynldn-ewgq-vflvdqnaunp syndrom e 02/19/2021 Grade 1 isthmic spondylolisthesis at L5-S1 02/19 Lumbar spondylosis with right L5 radiculopathy 0 02/19/2021 Anxiety and depression 03/28/2018 Dysuria 05/18/2017 Drug-induced erectile dysfunction 08/12/2016 Lipid disorder 12/12/2015 Osteoarthritis of shoulder 12/12/2015 Hypertension 02/24/2014 Overview (01/14/2017): HYPERTENSION NOS Hyperlipidemia 02/24/2014 Overview (01/14/2017): HYPERLIPIDEMIA NEC/NOS Surgical History Surgery Date Site/Laterality Comments CARPAL TUNNEL RELEASE Right COLONOSCOPY W/ POLYPECTOMY HIP SURGERY 09/11/2022 Right SHAISTA TOTAL HIP ARTHROPLASTY 07/14/2023 Left Medical History Medical History Date Comments Gout Arthritis Sleep apnea GERD (gastroesophageal reflux disease) BPH (benign prostatic hyperplasia) Anxiety Family History Medical History Relation Name Comments No Known Problems Father Diabetes Mother Relation Name Status Comments [...] week 07/15/2023 How often do you attend [facility] or christian services? Never 07/15/2023 Do you belong to any clubs o r organizations such as buddhism groups, unions, fraternal or athletic groups, or [...] place to sleep or slept in a penitentiary (including now)? No 07/15/2023 Personal Safety Answer Date Recorded Have you ever been in or are you currently in a harmful physical or emotional relationship or is someone making you feel afraid or unsafe? Denies 07/14/2023 Sex and Gender Information Value Date Recorded Sex Assigned at Not on file Legal Sex Male 11:50 PM LIVESTOCK BRANDS INSPECTOR Gender Identity Not on file Sexual Orientation Not on file Obstetrics History Last Filed Vital Signs Vital Sign Reading Time Taken Comments Blood Pressure 140/80 07/26/2023 10:47 AM CDT Pulse 80 07/26/2023 10:47 AM CDT Temperature 35.8 C (96.5 F) 07/26/2023 10:47 AM CDT Respiratory Rate 20 07/26/2023 10:47 AM CDT Oxygen Saturation 96% 07/26/2023 10:47 AM CDT Inhaled Oxygen Concentration - - Weight 116.1 kg (256 lb) 08/17/2023 2:02 PM LIVESTOCK BRANDS INSPECTOR Height 177.8 cm (5' 10) 08/17/2023 2:02 PM LIVESTOCK BRANDS INSPECTOR Body Mass Index 36.73 08/17/2023 2:02 PM LIVESTOCK BRANDS INSPECTOR Plan of Treatment Health Maintenance Due Date Last Done Comments Colon Cancer Screening-Colonoscopy 1962 Depression Screening 1962 Hepatitis C Screening 1962 Prostate Cancer Screening-PSA 1962 DTaP/Tdap/Td Vaccine (1 - Tdap) 1973 Hepatitis B Screening 1980 Regular Well Visit/Exam 18-64 1980 Zoster Vaccine (1 of 2) 2012 Influenza Vaccine (Season Ended) 2025 07/22/2017, 08/12/2016, 07/09/2011 Pneumococcal vaccine <65 Aged Out No longer eligible based on patient's age to complete this topic Medical Devices Implanted Type Area Insurance Claim Auditor Device Identifier Shelf Expiration Date Model / Serial / Lot [employer] [id number] 58mm Limit Hole Color Coded Hip G Hemisphere Offset Shell - [id number] Implanted:Qty: 1 on 10/01/2021 by Fletcher Silverman MD at [facility] Right: Hip [employer] 07/09/2031 [id number] / / [id number] [employer] [id number] Trilogy 6.5mm 25mm Self Tap Screw Bone - [id number] Implanted:Qty: 1 on 10/01/2021 by Fletcher Silverman MD at [facility] Right: Hip [employer] 08/26/2031 [id number] / / [id number] [employer] [id number] 36mm Lumen Hip G Liner Acetabular Longevity Sterile Latex Free - [id number] Implanted:Qty: 1 on 10/01/2021 by Fletcher Silverman MD at [facility] Right: Hip [employer] 08/01/[id number] / / [id number] [employer] 650-1057 G7 36mm Hip Head Femoral Biolox Delta Option - [id number] Implanted:Qty: 1 on 10/01/2021 by Fletcher Silverman MD at [facility] Right: Hip [employer] 01/01/2031 650-1057 / / [id number] [employer] [id number] Echo Bi-Metric 13mm 145mm Noncollar Reduce Proximal Profile Press - [id number] Implanted:Qty: 1 on 10/01/2021 by Fletcher Silverman MD at [facility] Right: Hip [employer] 06/24/2031 [id number] / / [id number] [employer] 650-1066 G7 Type 1 Hip Standard Offset Taper Sleeve Centering Titanium - [id number] Implanted:Qty: 1 on 10/01/2021 by Fletcher Silverman MD at [facility] Right: Hip [employer] 07/14/2031 650-1066 / / [id number] [employer] Echo Bi-Metric 11mm 135mm Noncollar Reduce Proximal Profile Press [id number] - [id number] Implanted:Qty: 1 on 07/14/2023 by Fletcher Silverman MD at [facility] Left: Hip [employer] [id number] 04/09/2033 [id number] / / [id number] [employer] Trilogy 6.5mm 25mm Self Tap Screw Bone [id number] - [id number] Implanted:Qty: 1 on 07/14/2023 by Fletcher Silverman MD at [facility] Left: Hip [employer] [id number] 04/21/2033 [id number] / / [id number] [employer] G7 36mm Hip Head Femoral Biolox Delta Option 650-1057 - [id number] Implanted:Qty: 1 on 07/14/2023 by Fletcher Silverman MD at [facility] Left: Hip [employer] [id number] 02/03/2033 650-1057 / / [id number] [employer] G7 Type 1 Hip -6mm Offset Taper Sleeve Centering Titanium Biolox 650-1064 - [id number] Implanted:Qty: 1 on 07/14/2023 by Fletcher Silverman MD at [facility] Left: Hip [employer] [id number] 11/10/2032 650-1064 / / [id number] [employer] G7 56mm Limit Hole Color Coded Hip F Hemisphere Offset Shell [id number] - [id number] Implanted:Qty: 1 on 07/14/2023 by Fletcher Silverman MD at [facility] Left: Hip [employer] [id number] 04/20/2033 [id number] / / [id number] [employer] Trilogy 6.5mm 25mm Self Tap Screw Bone [id number] - [id number] Implanted:Qty: 1 on 07/14/2023 by Fletcher Silverman MD at [facility] Left: Hip [employer] [id number] 04/23/2033 [id number] / / [id number] [employer] G7 36mm Lumen Hip F Liner Acetabular Longevity Sterile Latex Free [id number] - [id number] Implanted:Qty: 1 on 07/14/2023 by Fletcher Silverman MD at [facility] Left: Hip [employer] [id number] 03/10/[id number] / / [id number] Insurance [employer] [id number] [facility] MEDICARE ADVANTAGE [facility] MED[facility] ADVANTAGE Advance Directives For more information, please contact: [phone] * Full Code (Latest Code Status on File) Date Activated Date Inactivated Comments 07/14/2023 1:47 PM 07/15/2023 6:40 PM * Full Code Date Activated Date Inactivated Comments 10/01/2021 3:44 PM 10/03/2021 6:09 PM Care Teams Day Worker Relationship Specialty Start Date End Date Bruno Prather MD [address] [address] PCP - General Family Medicine 05/26/23
--- OUTSIDE RECORDS SUMMARY | 2025-03-29 13:41 | XMS_ITS | Encounter Summary ---
Author Organization [facility] Address [address] [place] [address] Phone Care Team Providers Care Human Resources Generalist Name Role Phone Larry Vásquez MD Primary Care Provider [phone] Bruno Prather MD Primary Care Provider [phone] Angie Arnold DO Primary Care Provider [phone] Moshe Carrasco BUTTON SEWING MACHINE OPERATOR, NETBACKUP ADMINISTRATOR Unavailable + [phone] Agatha Vallecillo BUTTON SEWING MACHINE OPERATOR, NETBACKUP ADMINISTRATOR Unavailable [phone] Reason for Visit * Reason Comments Medication Refill Encounter Details Date Type Department Care Team (Late st Contact Info) Description 06/01/2020 Refill [facility] Medical Group - Family Medicine [facility] #2 [place] [id number] Larry Vásquez MD #[address] [address] Medication Refill Social History Tobacco Use Types Packs/Day Years Used Date Smoking Tobacco: Former Cigarettes Q uit: 02/23/2019 Smokeless Tobacco: Never Alcohol Use Standard Drinks/Week Comments Yes 6 (1 standard drink = 0.6 oz pur e alcohol) PHQ-2 Answer Date Recorded PHQ-2 Score 0 10/26/2019 Sexually Active Control Partners Comments Not Currently Sex and Gender Information Value Date Recorded Sex Assigned at Not on file Legal Sex Male 11:38 PM CDT Gender Identity Not on file Sexual Orientation Not on file documented as of this encounter Miscellaneous Notes * Telephone Encounter - Larry Vásquez MD - 06/03/2020 2:48 PM CDT Prescription pending signature * Telephone Encounter - Beryl Huerta RN - 06/03/2020 2:28 PM CDT Medication failed the protocol, provider to review and approve the medication order. Requested Prescriptions Pending Prescriptions Disp Refills zolpidem (AMBIEN) 10 MG Tablet [Pharmacy Med Name: ZOLPIDEM TARTRATE 10 MG TABLET] 30 Tab 0 Sig: TAKE 1 TABLET BY MOUTH EVERY DAY NIGHTLY NEEDED FOR SLEEP Not Delegated - Psychiatry: Anxiolytics/Hypnotics Failed - 06/01/2020 3:23 PM Failed - This refill cannot be delegated Passed - Valid encounter within last 6 months Past Office Visits Recent Outpatient Visits 1 month ago Benign non-nodular prostatic hyperplasia with lower urinary tract symptoms [facility] Medical Group - Primary Care Larry Vásquez MD 7 months ago Essential hypertension [facility] Medical Group - Primary Care Larry Vásquez MD 1 year ago Benign non-nodular prostatic hyperplasia with lower urinary tract symptoms [facility] Medical Group - Primary Care Larry Vásquez MD 1 year ago Idiopathic chronic gout of multiple sites without tophus [facility] Medical Group - Primary Care Larry Vásquez MD 1 year ago Idiopathic chronic gout of multiple sites without tophus [facility] Medical Group - Primary Care Larry Vásquez MD Upcoming Appointments Future Appointments In 4 months Lab, [facility] PHYSICIAN GROUP [facility], [facility] In 4 months Larry Vásquez MD [facility] Medical Group - Primary [place] [facility], [facility] CNS - Recent and Past Visits Recent Visits Date Type Provider Dept 04/25/20 Office Visit Larry Vásquez MD [facility] 10/26/19 Office Visit Larry Vásquez MD [facility] 04/25/19 Office Visit Larry Vásquez MD [facility] Showing recent visits within past 460 days [...] Description 04/30/2025 1:20 PM CDT Office Visit [facility] Medical [facility] - Family Medicine - [place] [address]2 [place] [address] Angie Arnold DO 2 [facility] [address] [place] [address] 07/23/2025 1:00 PM CDT Office Visit [facility] - Pulmonology & Sleep Medicine - [place] [address]2 [place] [address] Agatha Vallecillo APRN, NETBACKUP ADMINISTRATOR #[address] [address] documented as of this encounter Visit Diagnoses Not on filedocumented in this encounter Additional Health Concerns Assessment Noted Time PHQ-9 Depression Total Score: 0 04/25/20 20 2:41 PM CDT documented as of this encounter Care Teams Human Resources Generalist Relationship Specialty Start Date End Date Larry Vásquez MD #[address] [address] PCP - General Family Medicine 08/29/15 10/27/20 Bruno Prather MD #[address] [address] PCP - General Family Medicine 10/28/20 03/21/24 Angie Arnold DO [address] [address] PCP - General Family Medicine 03/24/24 Moshe Carrasco APRN, NETBACKUP ADMINISTRATOR #2 [place] [address] Nurse Practitioner Advanced Practice Nurse 05/11/24 Agatha Vallecillo APRN, NETBACKUP ADMINISTRATOR #[address] [address] Nurse Practitioner Advanced Practice Nurse 06/15/24 documented as of this encounter
--- OUTSIDE RECORDS SUMMARY | 2025-03-29 13:41 | XMS_ITS | Encounter Summary ---
Author Organization [facility] Address [address] [place] [address] Phone Care Team Providers Care Metal Door Assembler Name Role Phone Bruno Prather MD Primary Care Provider [phone] Angie Arnold DO Primary Care Provider [phone] Moshe Carrasco WELDER AND FITTER, ELECTRICAL SUPERVISOR Unavailable [phone] Agatha Vallecillo WELDER AND FITTER, ELECTRICAL SUPERVISOR Unavailable [phone] Reason for Visit * Reason Comments Medication Refill Encounter Details Date Type Department Care Team (Late st Contact Info) Description 11/11/2022 Refill [facility] Medical Group - Family Medicine [facility] #2 [place] [phone] Bruno Prather MD [address]1 [place] [address] Medication Refill Social History Tobacco Use Types [...] Coronavirus/COVID-19? No / Unsure 10/16/2022 9:32 AM CONTENT STRATEGY LEAD documented as of this encounter Miscellaneous Notes * Telephone Encounter - Emily Perdomo RN - 11/11/2022 2:43 PM CST Medication failed the protocol, provider to review and approve the medication order if appropriate. Requested Prescriptions Pending Prescriptions Disp Refills venlafaxine (EFFEXOR-XR) 150 MG CAPSULE SR 24 HR [Pharmacy Med Name: VENLAFAXINE HCL ER 150 MG CAP]30 Capsule 5 Sig: TAKE 1 CAPSULE BY MOUTH EVERY DAY SNRI (6 Month Refill Only) Protocol Failed - 11/11/2022 1:35 PM Failed - Has an encounter in the past 6 months with a depression or anxiety visit diagnosis Passed - Visit with relevant provider in past 6 months or upcoming 90 days Recent Visits Date Type Provider Dept 10/08/22 Office Visit Lincoln Rosario APRN, ELECTRICAL SUPERVISOR [facility] 05/21/22 Office Visit Bruno Prather MD [facility] Showing recent visits within past 182 days and meeting all other requirements Future Appointments Date Type Provider Dept 11/26/22 Appointment Bruno Prather MD [facility] Showing future appointments within next 90 days and meeting all other requirements Passed - Patient has established therapy with Serotonin-Norepinephrine Reuptake Inhibitors for at least 6 months ENT STRATEGY LEAD documented in this encounter Plan of Treatment Upcoming Encounters Date Type Department Care Team (Late st Contact Info) Description 04/30/2025 1:20 PM CDT Office Visit [facility] Medical [facility] - Family Medicine - [place] [address]2 [place] [address] Angie Arnold, DO 2 [facility] [place], [facility]. [address] [place] [address] 07/23/2025 1:00 PM CDT Office Visit [facility] Medical Group - Pulmonology & Sleep Medicine - [place] #2 [place] [address] Agatha Vallecillo APRN, ELECTRICAL SUPERVISOR #2 [place] [facility] [address] [place] [address] documented as of this encounter Visit Diagnoses Not on filedocumented in this encounter Additional Health Concerns Assessment Noted Time PHQ-9 Depression Total Score: 13 022 1:00 PM CDT documented as of this encounter Care Teams Metal Door Assembler Relationship Specialty Start Date End Date Bruno Prather MD PCP - General Family Medicine 10/28/20 03/21/24 Angie Arnold DO 2 [facility] [address] [place] [address] PCP - General Family Medicine 03/24/24 Moshe Carrasco APRN, ELECTRICAL SUPERVISOR #2 [place] [address] Nurse Practitioner Advanced Practice Nurse 05/11/24 Agatha Vallecillo APRN, ELECTRICAL SUPERVISOR #2 [place] [facility] [address] [place] [address] Nurse Practitioner Advanced Practice Nurse 06/15/24 documented as of this encounter
--- OUTSIDE RECORDS SUMMARY | 2025-03-29 13:41 | XMS_ITS | Encounter Summary ---
Author Organization [facility] Address [address] [place] [address] Phone Care Team Providers Care Composite Layup Worker Name Role Phone Bruno Prather MD Primary Care Provider Angie Arnold DO Primary Care Provider [phone] Moshe Carrasco PHYSICIAN NEONATOLOGY, SPECIAL [employer]ENT GROUP INSURANCE Unavailable + [phone] Agatha Vallecillo PHYSICIAN NEONATOLOGY, SPECIAL AGENT GROUP INSURANCE Unavailable [phone] Reason for Visit * Reason Comments Medication Refill Encounter Details Date Type Department Care Team (Late st Contact Info) Description 10/10/2021 [facility] [address] [place] [address] Bruno Prather MD [address] [place] [address] Medication Refill Social History Tobacco Use Types [...] Telephone Encounter - Daniela Matthews RN - 10/13/2021 1:38 PM CST Medication failed the protocol, provider to review and approve the medication order if appropriate. Requested Prescriptions Pending Prescriptions Disp Refills allopurinol (ZYLOPRIM) 300 MG Tablet [Pharmacy Med Name: ALLOPURINOL 300 MG TABLET] 90 Tablet 3 Sig: TAKE 1 TABLET BY MOUTH EVERY DAY Gout Agents Protocol Failed - 10/10/2021 12:55 PM Failed - Uric acid on record in past 12 months URIC ACID Date Value Ref Range Status 12/31/2018 7.6 (H) 3.4 - 7.0 mg/dL Final Failed - Serum creatinine on record in past 12 months No results found for: CREATININE Passed - Visit with relevant provider in past 12 months or upcoming 90 days Recent Visits Date Type Provider Dept 07/25/21 Office Visit Bruno Prather MD [facility] 04/03/21 Office Visit Bruno Prather MD [facility] 01/17/21 Office Visit Bruno Prather MD [facility] 10/28/20 Office Visit Larry Vásquez MD [facility] Showing recent visits within past 365 days and meeting all other requirements Future Appointments No visits were found meeting these conditions. Showing future appointments within next 90 days and meeting all other requirements AL INTERN documented in this encounter Plan of Treatment Upcoming Encounters Date Type Department Care Team (Late st Contact Info) Description 04/30/2025 1:20 PM CDT Office Visit [facility] Medical Group - Family Medicine - [place] #2 [place] [address] Angie Arnold, DO [address] [address] 07/23/2025 1:00 PM CDT Office Visit [facility] Medical [facility] - Pulmonology & Sleep Medicine - [place] #2 [place] [address] Agatha Vallecillo APRN, SPECIAL AGENT GROUP INSURANCE #2 [facility] [address] [place] [address] documented as of this encounter Visit Diagnoses Not on filedocumented in this encounter Additional Health Concerns Assessment Noted Time PHQ-9 Depression Total Score: 0 07/18/20 20 3:34 PM CDT documented as of this encounter Care Teams Composite Layup Worker Relationship Specialty Start Date End Date Bruno Prather MD PCP - General Family Medicine 10/28/20 03/21/24 Angie Arnold DO 2 [facility] [address] [place] [address] PCP - General Family Medicine 03/24/24 Moshe Carrasco APRN, SPECIAL AGENT GROUP INSURANCE #[address] [place] [address] Nurse Practitioner Advanced Practice Nurse 05/11/24 Agatha Vallecillo APRN, CEFERINO #2 [facility] [address] [place] [address] Nurse Practitioner Advanced Practice Nurse 06/15/24 documented as of this encounter
--- OUTSIDE RECORDS SUMMARY | 2025-03-29 13:41 | XMS_ITS | Encounter Summary ---
Author Organization [facility] Address [address] [place] [address] Phone Care Team Providers Care Printed Circuit Board Drafter Name Role Phone Bruno Prather MD Primary Care Provider [phone] Angie Arnold DO Primary Care Provider [phone] Moshe Carrasco PIECE CUTTER, LINOTYPER Unavailable + [phone] Agatha Vallecillo PIECE CUTTER, LINOTYPER Unavailable [phone] Reason for Visit * Reason Comments Medication Refill Encounter Details Date Type Department Care Team (Late st Contact Info) Description 07/28/2022 Refill [facility] Medical Group - Family Medicine [facility] #2 [place] [phone] Larry Vásquez MD #[address] [address] Medication Refill Social History Tobacco Use Types [...] Telephone Encounter - Daniela Matthews RN - 07/28/2022 1:42 PM CDT Name from pharmacy: TAMSULOSIN HCL 0.4 MG CAPSULE Will file in chart as: tamsulosin (FLOMAX) 0.4 MG Capsule The original prescription was discontinued on 05/21/2022 by Bruno Prather MD documented in this encounter Plan of Treatment Upcoming Encounters Date Type Department Care Team (Late st Contact Info) Description 04/30/2025 1:20 PM CDT [facility] - Family Medicine - [place] #2 [place] [address] Angie Arnold DO 2 [facility] [address] [place] [address] 07/23/2025 1:00 PM CDT [facility] Medicine - [place] #2 [facility] [place] [address] Agatha Vallecillo APRN, LINOTYPER #2 [facility] [address] [place] [address] documented as of this encounter Visit Diagnoses Not on filedocumented in this encounter Additional Health Concerns Assessment Noted Time PHQ-9 Depression Total Score: 13 022 1:00 PM CDT documented as of this encounter Care Teams Printed Circuit Board Drafter Relationship Specialty Start Date End Date Bruno Prather MD PCP - General Family Medicine 10/28/20 03/21/24 Angie Arnold DO 2 [facility] [address] [place] [address] PCP - General Family Medicine 03/24/24 Moshe Carrasco APRN, LINOTYPER #2 [place] [address] Nurse Practitioner Advanced Practice Nurse 05/11/24 Agatha Vallecillo APRN, LINOTYPER #[address] [address] Nurse Practitioner Advanced Practice Nurse 06/15/24 documented as of this encounter
--- OUTSIDE RECORDS SUMMARY | 2025-03-29 13:41 | XMS_ITS | Encounter Summary ---
Author Organization [facility] Address [address] [place] [address] Phone Care Team Providers Care Candy Rolling Machine Operator Name Role Phone Bruno Prather MD Primary Care Provider Angie Arnold DO Primary Care Provider Moshe Carrasco SPACE OFFICER, RADIOISOTOPE TECHNICIAN Unavailable [phone] Agatha Vallecillo SPACE OFFICER, RADIOISOTOPE TECHNICIAN Unavailable [phone] Reason for Visit * Reason Comments Medication Refill Encounter Details Date Type Department Care Team (Late st Contact Info) Description 08/06/2023 Refill [facility] Medical Group - Family Medicine [facility] #2 [place] [phone] Bruno Prather MD #1 [place] [address] Medication Refill Social History Tobacco Use Types [...] Telephone Encounter - Daniela Matthews RN - 08/06/2023 2:43 PM CDT Images from the original note were not included. Tamsulosin HCl Dispensed Days Supply Quantity Provider Pharmacy TAMSULOSIN HYDROCHLORIDE 0.4 MG CAPS 08/04/2023 90 90 Capsule Bruno Prather MD [facility]pharm[facility][id number] -[place]... TAMSULOSIN HCL 0.4 MG CAPSULE 05/05/2023 90 90 Each Bruno Prather MD [id number] - [place]... Venlafaxine HCl Dispensed Days Supply Quantity Provider Pharmacy VENLAFAXINE HCL ER 150 MG CP24 08/04/2023 90 90 Capsule Bruno Prather MD [id number] - [place]... VENLAFAXINE HCL ER 150 MG CAP 05/07/2023 90 90 Each Bruno Prather MD [facility]/pharmacy #[id number] - [place]... documented in this encounter Plan of Treatment Upcoming Encounters Date Type Department Care Team (Late st Contact Info) Description 04/30/2025 1:20 PM CDT Office Visit [facility] Medical Group - Family Medicine - [place] #2 [place] [address] Angie Arnold, DO 2 [facility]. [address] [place] [address] 07/23/2025 1:00 PM CDT Office Visit [facility] Medical Group - Pulmonology & Sleep Medicine [facility] #2 [place] [address] Agatha Vallecillo APRN, RADIOISOTOPE TECHNICIAN #2 [facility] [address] [place] [address] documented as of this encounter Visit Diagnoses Not on filedocumented in this encounter Additional Health Concerns Assessment Noted Time PHQ-9 Depression Total Score: 0 05/13/20 23 7:00 AM CDT documented as of this encounter Care Teams Candy Rolling Machine Operator Relationship Specialty Start Date End Date Bruno Prather MD PCP - General Family Medicine 10/28/20 03/21/24 Angie Arnold DO 2 [facility] [address] [place] [address] PCP - General Family Medicine 03/24/24 Moshe Carrasco APRN, RADIOISOTOPE TECHNICIAN #2 [place] [address] Nurse Practitioner Advanced Practice Nurse 05/11/24 Agatha Vallecillo APRN, RADIOISOTOPE TECHNICIAN #2 [facility] [address] [place] [address] Nurse Practitioner Advanced Practice Nurse 06/15/24 documented as of this encounter
--- OUTSIDE RECORDS SUMMARY | 2025-03-29 13:41 | XMS_ITS | Encounter Summary ---
Author Organization [facility] Address [address] [place] [address] Phone Care Team Providers Care Vocational Evaluator Name Role Phone Larry Vásquez MD Primary Care Provider [phone] Bruno Prather MD Primary Care Provider [phone] Angie Arnold DO Primary Care Provider [phone] Moshe Carrasco COLLECTION SUPERVISOR, BORDER MACHINE OPERATOR Unavailable + [phone] Agatha Vallecillo COLLECTION SUPERVISOR, BORDER MACHINE OPERATOR Unavailable [phone] Reason for Visit * Reason Comments Medication Refill Encounter Details Date Type Department Care Team (Late st Contact Info) Description 06/14/2020 Refill [facility] Medical Group - Family Medicine [facility] #2 [place] [phone] Lincoln Rosario APRN, BORDER MACHINE OPERATOR #[address] [address] Medication Refill Social History Tobacco Use Types [...] have Coronavirus / COVID-19? No / Unsure 06/07/2020 2:15 PM CDT documented as of this encounter Miscellaneous Notes * Telephone Encounter - Larry Vásquez MD - 06/14/2020 9:30 AM CDT Prescription approved. Please call in * Telephone Encounter - Beryl Huerta RN - 06/14/2020 9:28 AM CDT Medication failed the protocol, provider to review and approve the medication order. Requested Prescriptions Pending Prescriptions Disp Refills tiZANidine (ZANAFLEX) 2 MG Tablet [Pharmacy Med Name: TIZANIDINE HCL 2 MG TABLET] 45 Tab 0 Sig: TAKE 1 TABLET BY MOUTH THREE TIMES A DAY Not Delegated - Analgesics: Muscle Relaxants Failed - 06/14/2020 8:32 AM Failed - This refill cannot be delegated Passed - Valid encounter within last 6 months Past Office Visits Recent Outpatient Visits 1 week ago Acute bilateral low back pain with bilateral sciatica [facility] Lincoln Rosario APN, BORDER MACHINE OPERATOR 1 month ago Benign non-nodular prostatic hyperplasia with lower urinary tract symptoms [facility] Larry Martinez MD 7 months ago Essential hypertension [facility] Larry Martinez MD 1 year ago Benign non-nodular prostatic hyperplasia with lower urinary tract symptoms [facility] Larry Vásquez MD 1 year ago Idiopathic chronic gout of multiple sites without tophus [facility] Larry Vásquez MD Upcoming Appointments Future Appointments In 4 months Lab, [facility], [facility] In 4 months Larry Vásquez MD [facility], [facility] WINDOWS SERVER ENGINEER - Recent and Past Visits Recent Visits Date Type Provider Dept 06/07/20 Office Visit Lincoln Rosario APN, BORDER MACHINE OPERATOR [facility] 04/25/20 Office Visit Larry Vásquez MD [facility] 10/26/19 Office Visit Larry Vásquez MD [facility] 04/25/19 Office Visit Larry Vásquez MD [facility] Showing recent visits within past 460 days [...] Description 04/30/2025 1:20 PM CDT Office Visit [facility] Medical [facility] - Family Medicine - [place] #2 [place] [address] Angie Arnold, DO 2 [facility] [address] [place] [address] 07/23/2025 1:00 PM CDT Office Visit [facility] - Pulmonology & Sleep Medicine - [place] #2 [place] [address] Agatha Vallecillo APRN, BORDER MACHINE OPERATOR #2 [facility] [address] [place] [address] documented as of this encounter Visit Diagnoses Diagnosis Acute bilateral low back pain with bilateral sciatica documented in this encounter Additional Health Concerns Assessment Noted Time PHQ-9 Depression Total Score: 0 04/25/20 20 2:41 PM CDT documented as of this encounter Care Teams Vocational Evaluator Relationship Specialty Start Date End Date Larry Vásquez MD #2 [facility] [address] [place] [address] PCP - General Family Medicine 08/29/15 10/27/20 Bruno Prather MD #2 [facility] [address] [place] [address] PCP - General Family Medicine 10/28/20 03/21/24 Angie Arnold DO 2 [facility] [address] [place] [address] PCP - General Family Medicine 03/24/24 Moshe Carrasco APRN, BORDER MACHINE OPERATOR #2 [place] [address] Nurse Practitioner Advanced Practice Nurse 05/11/24 Agatha Vallecillo APRN, BORDER MACHINE OPERATOR #2 [facility] [address] [place] [address] Nurse Practitioner Advanced Practice Nurse 06/15/24 documented as of this encounter
--- OUTSIDE RECORDS SUMMARY | 2025-03-29 13:41 | XMS_ITS | Encounter Summary ---
Author Organization [facility] Address [address] [place] [address] Phone Care Team Providers Care Trim Master Operator Name Role Phone Bruno Prather MD Primary Care Provider [phone] Angie Arnold DO Primary Care Provider Moshe Carrasco MANAGER FRONT, SUPERVISOR WIRE ROPE FABRICATION Unavailable + [phone] Agatha Vallecillo MANAGER FRONT, SUPERVISOR WIRE ROPE FABRICATION Unavailable [phone] Reason for Visit * Reason Comments Medication Refill Encounter Details Date Type Department Care Team (Late st Contact Info) Description 11/25/2020 [facility] [address] [place] [address] Larry Vásquez MD #[address] [address] Medication Refill Social History Tobacco Use [...] have Coronavirus / COVID-19? No / Unsure 10/28/2020 2:14 PM PIN GAME MACHINE INSPECTOR documented as of this encounter Miscellaneous Notes * Telephone Encounter - Daniela Matthews RN - 11/27/2020 9:57 AM CST Medication failed the protocol, provider to review and approve the medication order if appropriate. Requested Prescriptions Pending Prescriptions Disp Refills pantoprazole (PROTONIX) 40 MG Tablet Delayed Response [Pharmacy Med Name: PANTOPRAZOLE SOD DR 40 MGTAB] 90 Tablet 3 Sig: TAKE 1 TABLET BY MOUTH ONCE A DAY 30 TO 60 MINUTES BEFORE DINNER Gastroenterology: Antiulcer - Proton Pump Inhibitors Passed - 11/25/2020 10:22 PM Passed - Valid encounter within last 12 months Past Office Visits Recent Outpatient Visits 1 month ago Benign non-nodular prostatic hyperplasia with lower urinary tract symptoms [facility] - Larry Coyle MD 4 months ago Dysuria [facility] Larry Coyle MD 5 months ago Acute bilateral low back pain with bilateral sciatica [facility] Lincoln Vasquez APN, CEFERINO 7 months ago Benign non-nodular prostatic hyperplasia with lower urinary tract symptoms [facility] Larry Coyle MD 1 year ago Essential hypertension [facility] Larry Coyle MD Upcoming Appointments Future Appointments In 2 months [facility]ather [facility]CHNOLOGIST - Recent and Past Visits Recent Visits Date Type Provider Dept 10/28/20 Office Visit Larry Vásquez MD [facility] 07/18/20 Office Visit Larry Vásquez MD [facility] 06/07/20 Office Visit Lincoln Rosario APN, CNP [facility] 04/25/20 Office Visit Larry Vásquez MD [facility] 10/26/19 Office Visit Larry [facility] MD [facility] Showing recent visits within past 460 days with a meds authorizing provider and meeting all other requirements Future Appointments Date Type Provider Dept 01/27/21 Appointment Bruno Prather MD [facility] Showing future appointments within next 90 days with a meds authorizing provider and meeting all other requirements allopurinol (ZYLOPRIM) 300 MG Tablet [Pharmacy Med Name: ALLOPURINOL 300 MG TABLET] 90 Tablet 3 Sig: TAKE 1 TABLET BY MOUTH EVERY DAY Endocrinology: Gout Agents Passed - 11/25/2020 10:22 PM Passed - Valid encounter within last 12 months Past Office Visits Recent Outpatient Visits 1 month ago Benign non-nodular prostatic hyperplasia with lower urinary tract symptoms [facility] 4 months ago Dysuria [facility] Larry Coyle MD 5 months ago Acute bilateral low back pain with bilateral sciatica [facility], CNP 7 months ago Benign non-nodular prostatic hyperplasia with lower urinary tract symptoms [facility] 1 year ago Essential [facility] Upcoming Appointments Future Appointments In 2 months Bruno Prather MD [facility] - Recent and Past Visits Recent Visits Date Type Provider Dept 10/28/20 Office Visit Larry Vásquez MD [facility] 07/18/20 Office Visit Larry Vásquez MD [facility] 06/07/20 Office Visit Lincoln Rosario APN, CNP [facility] 04/25/20 Office Visit Larry Vásquez MD [facility] 10/26/19 Office Visit Larry V[facility]quez MD [facility] Showing recent visits within past 460 days with a meds authorizing provider and meeting all other requirements Future Appointments Date Type Provider Dept 01/27/21 Appointment Bruno Prather MD [facility] Showing future appointments within next 90 days with a meds authorizing provider and meeting all other requirements FLUoxetine (PROzac) 10 MG Capsule [Pharmacy Med Name: FLUOXETINE HCL 10 MG CAPSULE] 90 Capsule 3 Sig: TAKE 1 CAPSULE BY MOUTH EVERY DAY Not Delegated - Psychiatry: Antidepressants Failed - 11/25/2020 10:22 PM Failed - This refill cannot be delegated Passed - Valid encounter within last 12 months Past Office Visits Recent Outpatient Visits 1 month ago Benign non-nodular prostatic hyperplasia with lower urinary tract symptoms [facility] Larry Coyle MD 4 months ago Dysuria [facility] Larry Coyle MD 5 months ago Acute bilateral low back pain with bilateral sciatica [facility] APN, SUPERVISOR WIRE ROPE FABRICATION 7 months ago Benign non-nodular prostatic hyperplasia with lower urinary tract symptoms [facility] Larry Coyle MD 1 year ago Essential hypertension [facility] Larry Coyle MD Upcoming Appointments Future Appointments In 2 months Bruno Prather MD [facility]CHNOLOGIST - Recent and Past Visits Recent Visits Date Type Provider Dept 10/28/20 Office Visit Larry Vásquez MD [facility] 07/18/20 Office Visit Larry Vásquez MD [facility] 06/07/20 Office Visit Lincoln Rosario APN, CEFERINO [facility] 04/25/20 Office [facility]19 Office Visit Larry Vásquez MD [facility] Showing recent visits within past 460 days with a meds authorizing provider and meeting all other requirements Future Appointments Date Type Provider Dept 01/27/21 Appointment [facility] Show[facility] future appointments within next 90 days with a meds authorizing provider and meeting all other requirements GAME MACHINE INSPECTOR documented in this encounter Plan of Treatment Upcoming Encounters Date Type Department Care Team (Late st Contact Info) Description 04/30/2025 1:20 PM CDT Office Visit [facility] [address] [place] [address] Angie Arnold, DO 2 [facility]. [address] [place] [address] 07/23/2025 1:00 PM CDT Office Visit [facility] - Pulmonology & Sleep Medicine [facility] #2 [place] [address] Agatha Vallecillo APRN, CEFERINO [address] [facility] [address] [place] [address] documented as of this encounter Visit Diagnoses Not on filedocumented in this encounter Additional Health Concerns Assessment Noted Time PHQ-9 Depression Total Score: 0 07/18/20 20 3:34 PM CDT documented as of this encounter Care Teams Trim Master Operator Relationship Specialty Start Date End Date Bruno Prather MD PCP - General Family Medicine 10/28/20 03/21/24 Angie Arnold DO 2 [facility] ED [address] [address] PCP - General Family Medicine 03/24/24 Moshe Carrasco APRN, CEFERINO [address] [place] [address] Nurse Practitioner Advanced Practice Nurse 05/11/24 Agatha Vallecillo APRN, CEFERINO [address] [address] Nurse Practitioner Advanced Practice Nurse 06/15/24 documented as of this encounter
--- OUTSIDE RECORDS SUMMARY | 2025-03-29 13:41 | XMS_ITS | Encounter Summary ---
Author Organization [facility] Address [address] [place] [address] Phone Care Team Providers Care Data Support Specialist Name Role Phone Larry Vásquez MD Primary Care Provider [phone] Bruno Prather MD Primary Care Provider [phone] Angie Arnold DO Primary Care Provider [phone] Moshe Carrasco NET FINISHER, COPRA SAMPLER Unavailable + [phone] Agatha Vallecillo NET FINISHER, COPRA SAMPLER Unavailable [phone] Reason for Visit * Reason Comments Medication Refill Encounter Details Date Type Department Care Team (Late st Contact Info) Description 10/05/2020 Refill [facility] - Family Medicine [facility] [place] [address] [place] [id number] Larry Vásquez MD #[address] [address] Medication Refill Social History Tobacco Use Types Packs/Day Years Used Date Smoking Tobacco: Former Cigarettes Q uit: 02/23/2019 Smokeless Tobacco: Never Alcohol Use Standard Drinks/Week Comments Yes 6 (1 standard drink = 0.6 oz pur e alcohol) PHQ-2 Answer Date Recorded Total Score - Questions 1-9 0 0 05/2020 Sexually Active Control Partners Comments Not Currently Sex and Gender Information Value Date Recorded Sex Assigned at Not on file Legal Sex Male 11:38 PM CDT Gender Identity Not on file Sexual Orientation Not on file documented as of this encounter Miscellaneous Notes * Telephone Encounter - Larry Vásquez MD - 10/07/2020 11:31 AM CST Prescription approved. Please call in OR SPECIALIST * Telephone Encounter - Daniela Matthews RN - 10/07/2020 11:12 AM CST Medication failed the protocol, provider to review and approve the medication order if appropriate. Requested Prescriptions Pending Prescriptions Disp Refills tamsulosin (FLOMAX) 0.4 MG Capsule [Pharmacy Med Name: TAMSULOSIN HCL 0.4 MG CAPSULE] 90 Cap 3 Sig: TAKE 1 CAPSULE BY MOUTH EVERY DAY Urology: Benign Prostatic Hyperplasia Failed - 10/05/2020 3:21 PM Failed - Last BP in normal range BP Readings from Last 1 Encounters: 07/18/20 (!) 142/94 Passed - Valid encounter within last 12 months Past Office Visits Recent Outpatient Visits 2 months ago Dysuria [facility] - Larry Coyle MD 4 months ago Acute bilateral low back pain with bilateral sciatica [facility] - Lincoln Vasquez APN, COPRA SAMPLER 5 months ago Benign non-nodular prostatic hyperplasia with lower urinary tract symptoms [facility] Larry Coyle MD 11 months ago Essential hypertension [facility] Larry Coyle MD 1 year ago Benign non-nodular prostatic hyperplasia with lower urinary tract symptoms [facility] Larry Coyle MD Upcoming Appointments Future Appointments In 2 weeks [facility] In 3 weeks Larry Vásquez MD [facility] PEDRO Velasquez CYLINDER CHECKER - Recent and Past Visits Recent Visits Date Type Provider Dept 07/18/20 Office Visit Larry Vásquez MD [facility] 06/07/20 Office Visit Lincoln Rosario APN, CNP [facility] 04/25/20 Office Visit Larry Vásquez MD [facility] 10/26/19 Office Visit Larry Vásquez MD [facility] Showing recent visits within past 460 days with a meds authorizing provider and meeting all other requirements Future Appointments Date Type Provider Dept 10/28/20 Appointment Larry Vásquez MD [facility] Showing future appointments within next 90 days with a meds authorizing provider and meeting all other requirements sildenafil citrate (VIAGRA) 100 MG Tablet [Pharmacy Med Name: SILDENAFIL 100 MG TABLET] 12 Tab 4 Sig: TAKE 1 TABLET BY MOUTH EVERY DAY NEEDED FOR ERECTILE DYSFUNCTION Not Delegated - Urology: Erectile Dysfunction Agents Failed - 10/05/2020 3:21 PM Failed - Last BP in normal range BP Readings from Last 1 Encounters: 07/18/20 (!) 142/94 Failed - This refill cannot be delegated Passed - Valid encounter within last 12 months Past Office Visits Recent Outpatient Visits 2 months ago Dysuria [facility] Larry Coyle MD 4 months ago Acute bilateral low back pain with bilateral sciatica [facility] Lincoln Vasquez APN, CEFERINO 5 months ago Benign non-nodular prostatic hyperplasia with lower urinary tract symptoms [facility] Larry Coyle MD 11 months ago Essential hypertension [facility] Larry Coyle MD 1 year ago Benign non-nodular prostatic hyperplasia with lower urinary tract symptoms [facility] Larry Coyle MD Upcoming Appointments Future Appointments In 2 weeks [facility] PHYSICIAN GROUP LAB, [facility] In 3 weeks [facility] CYLINDER CHECKER - Recent and Past Visits Recent Visits Date Type Provider Dept 07/18/20 Office Visit Larry Vásquez MD [facility] 06/07/20 Office Visit Lincoln Rosario APN, CEFERINO [facility] 04/25/20 Office Visit Larry Vásquez MD [facility] 10/26/19 Office Visit Larry Vásquez MD [facility] Showing recent visits within past 460 days with a meds authorizing provider and meeting all other requirements Future Appointments Date Type Provider Dept 10/28/20 Appointment Larry Vásquez MD [facility] Showing future appointments within next 90 days with a meds authorizing provider and meeting all other requirements OR SPECIALIST documented in this encounter Plan of Treatment Upcoming Encounters Date Type Department Care Team (Late st Contact Info) Description 04/30/2025 1:20 PM CDT Office Visit [facility] Medical [facility] - Family Medicine - [place] [address]2 [place] [address] Angie Arnold DO [address] [address] 07/23/2025 1:00 PM CDT Office Visit [facility] - Pulmonology & Sleep Medicine - [place] #2 [place] [address] Agatha Vallecillo APRN, COPRA SAMPLER #[address] [address] documented as of this encounter Visit Diagnoses Not on filedocumented in this encounter Additional Health Concerns Assessment Noted Time PHQ-9 Depression Total Score: 0 07/18/20 3:34 PM CDT documented as of this encounter Care Teams Data Support Specialist Relationship Specialty Start Date End Date Larry Vásquez MD #[address] [address] PCP - General Family Medicine 08/29/15 10/27/20 Bruno Prather MD #[address] [address] PCP - General Family Medicine 10/28/20 03/21/24 Angie Arnold DO [address] [address] PCP - General Family Medicine 03/24/24 Moshe Carrasco APRN, COPRA SAMPLER #2 [place] [address] Nurse Practitioner Advanced Practice Nurse 05/11/24 Agatha Vallecillo APRN, COPRA SAMPLER [facility] [address] Nurse Practitioner Advanced Practice Nurse 06/15/24 documented as of this encounter
--- OUTSIDE RECORDS SUMMARY | 2025-03-29 13:41 | XMS_ITS | Encounter Summary ---
Author Organization [facility] Address [address] [place] [address] Phone Care Team Providers Care Automatic Vulcanizing Lead Operator Name Role Phone Bruno Prather MD Primary Care Provider Angie Arnold DO Primary Care Provider Moshe Carrasco COMPENSATION AND HRIS ANALYST, CLINICAL APPLICATION MANAGER Unavailable [phone] Agatha Vallecillo COMPENSATION AND HRIS ANALYST, CLINICAL APPLICATION MANAGER Unavailable [phone] Reason for Visit * Reason Comments Medication Refill Encounter Details Date Type Department Care Team (Late st Contact Info) Description 03/14/[address] [facility] - Family Medicine [facility] #2 [place] [id number] Bruno Prtaher MD #1 [place] [address] Medication Refill Social History Tobacco Use Types [...] encounter Miscellaneous Notes * Telephone Encounter - Obdulia Kingsley RN - 03/16/2022 4:29 PM CDT Medication discontinued/alternate therapy documented in this encounter Plan of Treatment Upcoming Encounters Date Type Department Care Team (Late st Contact Info) Description 04/30/2025 1:20 PM CDT Office Visit [facility] Medical [facility] - Family Medicine - [place] #2 [place] [address] Angie Arnold, 2 [facility] [address] [place] [address] 07/23/2025 1:00 PM CDT Office Visit [facility] - Pulmonology & Sleep Medicine - [place] [address] [place] [address] Agatha Vallecillo APRN, CLINICAL APPLICATION MANAGER #[address] [address] documented as of this encounter Visit Diagnoses Not on filedocumented in this encounter Additional Health Concerns Assessment Noted Time PHQ-9 Depression Total Score: 0 07/18/20 20 3:34 PM CDT documented as of this encounter Care Teams Automatic Vulcanizing Lead Operator Relationship Specialty Start Date End Date Bruno Prather MD PCP - General Family Medicine 10/28/20 03/21/24 Angie Arnold DO 2 [facility] ED [facility] [address] [place] [address] PCP - General Family Medicine 03/24/24 Moshe Carrasco COMPENSATION AND HRIS ANALYST, CLINICAL APPLICATION MANAGER #2 [facility] [address] Nurse Practitioner Advanced Practice Nurse 05/11/24 Agatha Vallecillo, MATEUS, CLINICAL APPLICATION MANAGER #[address] [address] Nurse Practitioner Advanced Practice Nurse 06/15/24 documented as of this encounter
--- OUTSIDE RECORDS SUMMARY | 2025-03-29 13:41 | XMS_ITS | Encounter Summary ---
Author Organization [facility] Address [address] [place] [address] Phone Care Team Providers Care Cook Camp Name Role Phone Bruno Prather MD Primary Care Provider [phone] Angie Arnold DO Primary Care Provider [phone] Moshe Carrasco PLATING EQUIPMENT TENDER, DIRECTOR NETWORK DEVELOPMENT Unavailable [phone] Agatha Vallecillo PLATING EQUIPMENT TENDER, DIRECTOR NETWORK DEVELOPMENT Unavailable [phone] Reason for Referral * Consult, Test & Initiate Treatment (Routine) - Closed Specialty Diagnoses / Procedures Referred By Gian luna Referred To Contact Diagnoses Other spondylosis with radiculopathy, lumbar region Bruno Prather MD Phone: tel: fax: [facility] [address] [address] Phone: tel: fax: Referral ID Status Reason Start Date Expiration Date Visits Re quested Visits Authorized [id number] Closed 12/02/2021 1 1 Scheduling Instructions Ryan is being referred to [facility] or other specialist in patient's insurance network for arthritis of L5 . See below for Ryan's current medications, allergies and problem list. CURRENT MEDS: Current Outpatient Medications: allopurinol (ZYLOPRIM) 300 MG Tablet, TAKE 1 TABLET BY MOUTH EVERY DAY, Disp: 90 Tablet, Rfl: 3 cyclobenzaprine (FLEXERIL) 5 MG Tablet, TAKE 1 TABLET BY MOUTH THREE TIMES A DAY NEEDED FOR MUSCLE SPASMS, Disp: 90 Tablet, Rfl: 0 finasteride (PROSCAR) 5 MG Tablet, TAKE 1 TABLET BY MOUTH EVERY DAY, Disp: 90 Tab, Rfl: 3 FLUoxetine (PROzac) 10 MG Capsule, TAKE 2 CAPSULES BY MOUTH EVERY DAY, Disp: 180 Capsule, Rfl: 1 gabapentin (NEURONTIN) 300 MG Capsule, TAKE 1 CAPSULE BY MOUTH EVERY DAY AT NIGHT, Disp: , Rfl: ibuprofen (MOTRIN) 800 MG Tablet, TAKE 1 TABLET BY MOUTH EVERY 8 HOURS, Disp: 270 Tablet, Rfl: 3 losartan (COZAAR) 50 MG Tablet, Take 1 Tablet by mouth daily., Disp: 90 Tablet, Rfl: 3 meloxicam (MOBIC) 15 MG Tablet, Take 15 mg by mouth., Disp: , Rfl: pantoprazole (PROTONIX) 40 MG Tablet Delayed Response, Take 1 Tablet by mouth daily., Disp: 90 Tablet, Rfl: 3 sildenafil citrate (VIAGRA) 100 MG Tablet, TAKE 1 TABLET BY MOUTH EVERY DAY NEEDED FOR ERECTILE DYSFUNCTION, Disp: 12 Tablet, Rfl: 4 tamsulosin (FLOMAX) 0.4 MG Capsule, TAKE 1 CAPSULE BY MOUTH EVERY DAY, Disp: 90 Capsule, Rfl: 2 zolpidem (AMBIEN) 10 MG Tablet, TAKE 1 TABLET BY MOUTH EVERY DAY NIGHTLY NEEDED FOR SLEEP, Disp: 30 Tab, Rfl: 0 No current facility-administered medications for this visit. 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 Voice disturbance Osteoarthritis of shoulder Lipid disorder Benign non-nodular prostatic hyperplasia with lower urinary tract symptoms Hypertension Drug-induced erectile dysfunction Physical exam, annual (Adult) Chronic idiopathic gout of multiple sites GOPAL on CPAP Dysuria Anxiety Hyperlipidemia Isthmic spondylolisthesis Other spondylosis with radiculopathy, lumbar region Arthritis of right hip DENCE MANAGER Reason for Visit * Reason Onset Date Comments Referral 12/02/2021 Encounter Details Date Type Department Care Team (Late st Contact Info) Description 12/02/2021 Telephone [facility] [address] [place] [address] Bruno Prather MD [address] [place] [address] Referral Social History Tobacco Use Types Packs/Day Years Used Date Smoking Tobacco: Former Cigarettes Q uit: 02/23/2019 Smokeless Tobacco: Never Alcohol Use Standard Drinks/Week Comments Not Currently 6 (1 standard drink = 0.6 oz pur e alcohol) PHQ-2 Answer Date Recorded Total Score - Questions 1-9 0 10/0 05/2020 Sexually Active Control Partners Comments Not [...] have Coronavirus / COVID-19? No / Unsure 11/20/2021 10:34 AM RESIDENCE MANAGER documented as of this encounter Miscellaneous Notes * Telephone Encounter - Bruno Prather MD - 12/02/2021 2:21 PM CST This is signed and sent. DENCE MANAGER * Telephone Encounter - Margarita Mar RN - 12/02/2021 1:49 PM RESIDENCE MANAGER Patient calling for new ortho referral. Patient states current ortho doc at [facility] on medical leave and not practicing. Patient was advised to call primary care provider for new referral. Referral pended. DENCE MANAGER documented in this encounter Plan of Treatment Upcoming Encounters Date Type Department Care Team (Late st Contact Info) Description 04/30/2025 1:20 PM CDT Office Visit [facility] - Family Medicine - [place] #2 [place] [address] Angie Arnold, DO 2 [facility] [place] [address] 07/23/2025 1:00 PM CDT [facility] - [place] #2 [place] [address] Agatha Vallecillo APRN, DIRECTOR NETWORK DEVELOPMENT #[address] [address] Scheduled Referrals Name Type Priority Associated Diagnoses Orde r Schedule EXTERNAL ORTHOPEDIC REFERRAL Outpatient Referral Routine Other spondylosis with radiculopathy, lumbar region Expected: 12/02/2021, Expires: 12/02/2022 documented as of this encounter Visit Diagnoses Diagnosis Other spondylosis with radiculopathy, lumbar region- Primary documented in this encounter Additional Health Concerns Assessment Noted Time PHQ-9 Depression Total Score: 0 07/18/20 20 3:34 PM CDT documented as of this encounter Care Teams Cook Camp Relationship Specialty Start Date End Date Bruno Prather MD PCP - General Family Medicine 10/28/20 03/21/24 Angie Arnold DO [address] [address] PCP - General Family Medicine 03/24/24 Moshe Carrasco APRN, DIRECTOR NETWORK DEVELOPMENT #2 [place] [address] Nurse Practitioner Advanced Practice Nurse 05/11/24 Agatha Vallecillo APRN, DIRECTOR NETWORK DEVELOPMENT #[address] [address] Nurse Practitioner Advanced Practice Nurse 06/15/24 documented as of this encounter
[2025-03-29] MEDS: methylPREDNISolone SOD SUCC 125 MG VIAL IM (14:31)
--- NOTE | 2025-03-29 14:38 | ED.GENADULT ---
HPI - General Adult General Chief complaint: Extremity Injury, Lower Stated complaint: Gout right foot Source: patient Mode of arrival: ambulatory Limitations: no limitations History of Present Illness HPI narrative: Patient presents for evaluation of right ankle pain. Symptom onset 3-4 days ago. He has a history of gout and this feels similar. He woke from sleep with his symptoms and denies any injury. He identifies alcohol as the precipitating factor. He consumed 12 beers prior to the time of symptom onset. He typically does not consume that much alcohol, normally limiting his consumption to 3-4 beers per week. He states pain in the right ankle is 10 of 10 in severity. Pain is worse with movement. He typically takes allopurinol but does not have any at the present time. Steroid injections have helped in the past. He is not diabetic. Related Data Home Medications ?Medication ?Instructions ?Recorded ?Confirmed ?Last Taken ?Type pantoprazole 40 mg tablet,delayed mg PO 09/17/24 Unknown History release tamsulosin 0.4 mg capsule mg PO 09/17/24 Unknown History venlafaxine 150 mg mg PO 09/17/24 Unknown History capsule,extended release 24 hr Allergies Allergy/AdvReac Type Severity Reaction Status Date / Time No Known Allergies Allergy Verified 03/29/25 13:33 Review of Systems Review of Systems: CONSTITUTIONAL: Denies fever, chills, or sweats. EYES: Denies visual changes, redness, or discharge. ENT: Denies rhinorrhea, congestion, sore throat, or otalgia. CARDIOVASCULAR: Denies chest pain, palpitations, or edema. RESPIRATORY: Denies cough or dyspnea. GASTROINTESTINAL: Denies abdominal pain, nausea, vomiting, or diarrhea. GENITOURINARY: Denies dysuria or hematuria. SKIN: Denies rash or itching. MUSCULOSKELETAL: Reports right ankle pain and swelling NEUROLOGIC: Denies headache, numbness, dizziness, or weakness. PSYCHIATRIC: Denies anxiety or depression. [facility] Past Medical History Medical History Gout Surgical History Surgical History No pertinent past surgical history Family History Family History Mother Family history non-contributory Social History Social History Alcohol intake: current Drinks per week: 4 Substance use: never Gender identity (if verbalized by the patient): Male Exam Narrative: GENERAL: Well-appearing, well-nourished, and in no acute distress. HEAD: Normocephalic, atraumatic. EYES: PERRLA and EOMI. ENT: Nares clear, no rhinorrhea or epistaxis. Mucous membranes moist. Oropharynx without tonsillar hypertrophy exudate or other lesions. Bilateral TMs pearly andrews nonbulging NECK: Supple. No adenopathy or masses. No carotid bruits or JVD CHEST: Clear to auscultation. No respiratory distress. No wheezes rales or rhonchi HEART: Regular rate and rhythm. No murmur heard. Normal peripheral pulses. ABDOMEN: Soft, nontender, nondistended, normal active bowel sounds. EXTREMITIES: There is tenderness throughout the anterior aspect of the right ankle. He exhibits hesitancy with dorsi and plantar flexion of the right foot secondary to pain. There is trace swelling present to the right ankle SKIN: Right ankle is warmer in temperature than the rest of the extremity. Warm, dry, no rash. NEURO: No focal deficits. Alert and oriented x3. PSYCH: Normal mood and affect. Course Course Emergency Course: This is a 65-year-old male who presented for evaluation of right ankle pain. I offered x-ray, which he declined. I think this is reasonable as his current symptoms are consistent with those previous experience with gout in the past. He was given an injection of Solu-Medrol. Will DC with hydrocodone, prednisone, allopurinol. He will limit alcohol consumption. Follow-up with primary provider. Go to the ER for worsening symptoms. Patient in agreement with plan of care. Level of Care: Express Care Visit Vital Signs Vital signs: Vital Signs Temperature 36.2 C L 03/29/25 13:34 Pulse Rate 87 03/29/25 13:34 Respiratory Rate 20 03/29/25 13:34 Blood Pressure 120/86 03/29/25 13:34 Pulse Oximetry 99 03/29/25 13:34 Oxygen Delivery Room Air 03/29/25 13:34 Temperature 36.2 C L 03/29/25 13:34 Pulse Rate 87 03/29/25 13:34 Respiratory Rate 20 03/29/25 13:34 Blood Pressure 120/86 03/29/25 13:34 Pulse Oximetry 99 03/29/25 13:34 Oxygen Delivery Room Air 03/29/25 13:34 Medical Decision Making Vital Signs Vital Signs: Vital Signs Temperature 36.2 C L 03/29/25 13:34 Pulse Rate 87 03/29/25 13:34 Respiratory Rate 20 03/29/25 13:34 Blood Pressure 120/86 03/29/25 13:34 Pulse Oximetry 99 03/29/25 13:34 Oxygen Delivery Room Air 03/29/25 13:34 Temperature 36.2 C L 03/29/25 13:34 Pulse Rate 87 03/29/25 13:34 Respiratory Rate 03/29/25 13:34 Blood Pressure 120/86 03/29/25 13:34 Pulse Oximetry 99 03/29/25 13:34 Oxygen Delivery Room Air 03/29/25 13:34 Discharge Plan Discharge Clinical Impression: Gout Qualifiers: Gout site: ankle Gout etiology: unspecified cause Chronicity: acute Laterality: right Qualified Code(s): M10.9 - Gout, unspecified Patient Disposition: Home Condition: Stable Instructions: Antibiotic Form, Gout (ED) Patient Language: Setswana Prescriptions: New prednisone 50 mg tablet 50 mg PO DAILY Qty: 5 0RF allopurinol 100 mg tablet 100 mg PO DAILY Qty: 30 0RF hydrocodone-acetaminophen 5-325 mg tablet 1 - 2 tablet PO Q6H PRN (Reason: pain) Qty: 15 0RF No Action venlafaxine 150 mg capsule,extended release 24hr PO tamsulosin 0.4 mg capsule PO pantoprazole 40 mg tablet,delayed release (DR/EC) PO Follow-up/Referrals: Jason Rowan MD [Physician] - Time of Disposition: 14:47
== END 2025-03-29 14:55 | disposition home or self-care (01) ==
PROVIDERS: Emergency Provider Nurse Practitioner
DX: M10.9 Gout, unspecified (principal)
CPT/HCPCS: 96372; 99213; G0463; J2919

== ENCOUNTER 2025-05-23 16:51 | Emergency (ER) | payer MEDICARE, SELFPAY ==
--- NOTE | 2025-05-23 16:52 | ED_ITS ---
HPI - URI/Sore Throat General Chief Complaint: Upper Respiratory Infection Stated Complaint: throat/cough/drainage/chest Time Seen by Provider: 05/23/25 16:52 Source: patient Mode of arrival: ambulatory Limitations: no limitations History of Present Illness HPI Narrative: Ryan is a 65-year-old male patient presenting to the clinic today with complaints of sore throat, cough, nasal drainage, and chest congestion times 3-4 days. States his cough is nonproductive. He is having right ear pain and feels as though it is clogged. He reports no known fevers, chills, body aches. No known sick contacts. Denies any shortness of breath or chest pain. Related Data Home Medications ?Medication ?Instructions ?Recorded ?Confirmed ?Last Taken ?Type pantoprazole 40 mg tablet,delayed mg PO 09/17/24 Unknown History release tamsulosin 0.4 mg capsule mg PO 09/17/24 Unknown History venlafaxine 150 mg mg PO 09/17/24 Unknown History capsule,extended release 24 hr Allergies Allergy/AdvReac Type Severity Reaction Status Date / Time No Known Allergies Allergy Verified 05/23/25 16:53 Review of Systems Review of Systems: Pertinent positives per HPI. Patient denies any fever, chills, rash, headache, visual changes, dizziness, shortness of breath, chest pain, palpitations, nausea, vomiting, diarrhea, constipation, abdominal pain, or any urinary issues. [facility] Past Medical History Medical History Gout Surgical History Surgical History No pertinent past surgical history Family History Family History Mother Family history non-contributory Social History Social History Alcohol intake: current Drinks per week: 4 Substance use: never Gender identity (if verbalized by the patient): Male Comments At the time of my signature, I reviewed and agree with the nursing past medical, surgical, social, and family history. There is no relevant family history pertinent to the patient complaint. Exam Narrative: General: Well-developed, morbidly obese, in no apparent distress Head: Normocephalic, atraumatic Eyes: Pupils equally round and reactive to light bilaterally, EOM intact, sclera and conjunctive clear, no discharge, lids normal Ears: TMs intact and clear, ear canals clear, no drainage, grossly hearing normal. Nose: Nares patent, clear nasal discharge, moderate inflammation, no sinus tenderness. Mouth: Oral pharynx red without lesions or masses, good dentition, MMM. Postnasal drip Neck: Supple, trachea midline, no enlargement of anterior or posterior cervical nodes, no thyroid masses or goiter palpable. Cardio: Regular rate and rhythm, s1 and s2 normal, no murmur appreciated. Resp: Expiratory rhonchi in the posterior lower lobes with faint wheezing, no rales or rubs Course Course Emergency Course: Portions of this record may have been created with voice recognition software. Level of Care: Express Care Visit Vital Signs Vital signs: Vital Signs Temperature 36.3 C L 05/23/25 16:56 Pulse Rate 95 05/23/25 16:56 Respiratory Rate 18 05/23/25 16:56 Blood Pressure 138/82 05/23/25 16:56 Pulse Oximetry 96 05/23/25 16:56 Oxygen Delivery Room Air 05/23/25 16:56 Temperature 36.3 C L 05/23/25 16:56 Pulse Rate 95 05/23/25 16:56 Respiratory Rate 18 05/23/25 16:56 Blood Pressure 138/82 05/23/25 16:56 Pulse Oximetry 96 05/23/25 16:56 Oxygen Delivery Room Air 05/23/25 16:56 Vital signs reviewed MDM - URI/Sore Throat MDM Narrative Medical decision making narrative: At the time of visit patient is resting comfortably on the exam table. Patient appears to be nontoxic. Complaints of sore throat, cough, nasal drainage, and chest congestion times 3-4 days. States his cough is nonproductive. He is having right ear pain and feels as though it is clogged. He reports no known fevers, chills, body aches. No known sick contacts. Denies any shortness of breath or chest pain. On exam patient has right TM intact, bulging, red, clear nasal drainage with inflammation in the nasal turbinates, rhonchi a/wheezing heard in the lung nick. COVID, flu, and strep test were ordered Labs: COVID, influenza, and strep test were all negative in the clinic today Plan: I suspect patient has right otitis media, URI, and bronchitis. Prescription for Augmentin, albuterol inhaler, and prednisone was sent to the pharmacy. Supportive measures were discussed with the patient and they voiced understanding discharge instructions and agrees to treatment plan. Return precautions reviewed Differential Diagnosis Differential diagnosis: Likely upper respiratory infection, otitis media, sinusitis, viral infection, bronchitis, influenza, pharyngitis and other (COVID) Discharge Plan Discharge Clinical Impression: Acute right otitis media, Bronchitis URI (upper respiratory infection) Qualifiers: URI type: unspecified URI Qualified Code(s): J06.9 - Acute upper respiratory infection, unspecified Patient Disposition: Home Condition: Stable Instructions: Antibiotic Form, Ear Infection (ED), Upper Respiratory Infection (ED), Acute Bronchitis (ED), Postnasal Drip (DC) Additional Instructions: COVID, influenza, and strep test were all negative in the clinic today. Take prescription medications only as prescribed-albuterol inhaler, prednisone, and Augmentin Increase fluids and stay well hydrated May take Tylenol or motrin as directed on bottle for pain/fever May use Flonase 1 spray in each nare daily May take OTC antihistamines such as Zyrtec or Claritin daily as directed on bottle May apply Vicks vapor rub to chest to open sinuses Sinus rinses for congestion Cepacol spray, cough drops, throat lozenges, warm tea with honey/lemon, gargle salt water to soothe throat BRAT diet for diarrhea Clear liquids x 24 hours then advance as tolerated for nausea/vomiting Go to the ED if you develop a worsening in your condition- high fever not controlled by Tylenol or Motrin, dehydration, weakness, lethargy, shortness of breath, or chest pain. Follow up with your PCP in 3-5 days if symptoms persist. Patient Language: Japanese Prescriptions: New amoxicillin-pot clavulanate 875-125 mg tablet 1 tablet PO Q12H 7 Days Qty: 14 0RF prednisone 20 mg tablet 40 mg PO DAILY 5 Days Qty: 10 0RF albuterol sulfate 90 mcg/actuation HFA aerosol inhaler 2 puff inhalation Q4-6H PRN (Reason: shortness of breath or wheezing) 30 Days Qty: 8.5 0RF No Action venlafaxine 150 mg capsule,extended release 24hr PO tamsulosin 0.4 mg capsule PO pantoprazole 40 mg tablet,delayed release (DR/EC) PO allopurinol 100 mg tablet 100 mg PO DAILY Qty: 30 0RF Follow-up/Referrals: Catalina,Angie Lugo DO [Primary Care Provider] - Time of Disposition: 17:20 Quality NIHSS Nursing Documentation ED NIHSS nursing documentation: reviewed/agree
--- OUTSIDE RECORDS SUMMARY | 2025-05-23 16:53 | XMS_ITS | Encounter Summary ---
Author Organization [facility] Address [address] [place] [address] Phone Care Team Providers Care Artificial Pearl Maker Name Role Phone Bruno Prather MD Primary Care Provider Angie Arnold DO Primary Care Provider Moshe Carrasco KETTLE COOK, INSTRUCTOR WARPER Unavailable [phone] Agatha Vallecillo KETTLE COOK, INSTRUCTOR WARPER Unavailable [phone] Reason for Visit * Reason Comments Medication Refill Encounter Details Date Type Department Care Team (Late st Contact Info) Description 10/30/2021 Refill [facility] Medical Group - Family Medicine [facility] [address] [place] [id number] Bruno Prather MD [address] [place] [address] Medication Refill Social History Tobacco Use Types [...] [place] 01/17/21 Office Visit Bruno Prather MD [facility] Showing recent visits within past 365 days and meeting all other requirements Future Appointments No visits were found meeting these conditions. Showing future appointments within next 90 days and meeting all other requirements PRINT READER documented in this encounter Plan of Treatment Upcoming Encounters Date Type Department Care Team (Late st Contact Info) Description 07/23/2025 1:00 PM CDT Office Visit [facility] Medical [facility] - Pulmonology & Sleep Medicine - [place] [address] [place] [address] Agatha Vallecillo APRN, INSTRUCTOR WARPER [address]2 [facility] [address] [place] [address] 08/03/2025 2:20 PM CDT Office Visit [facility] Medical [facility] - Family Medicine - [place] [address] [place] [address] Angie Arnold, DO 2 [facility]. [address] [place] [address] documented as of this encounter Visit Diagnoses Not on filedocumented in this encounter Additional Health Concerns Assessment Noted Time PHQ-9 Depression Total Score: 0 07/18/20 20 3:34 PM CDT documented as of this encounter Care Teams Artificial Pearl Maker Relationship Specialty Start Date End Date Bruno Prather MD PCP - General Family Medicine 10/28/20 03/21/24 Angie Arnold DO 2 [facility] [address] [place] [address] PCP - General Family Medicine 03/24/24 Moshe Carrasco APRN, INSTRUCTOR WARPER [address] [place] [address] Nurse Practitioner Advanced Practice Nurse 05/11/24 Agatha Vallecillo APRN, INSTRUCTOR WARPER [address]2 [facility] [address] [place] [address] Nurse Practitioner Advanced Practice Nurse 06/15/24 documented as of this encounter
--- OUTSIDE RECORDS SUMMARY | 2025-05-23 16:53 | XMS_ITS | Encounter Summary ---
Author Organization [facility] Address [address] [place] [address] Phone Care Team Providers Care Tile Mason Name Role Phone Larry Vásquez MD Primary Care Provider [phone] Bruno Prather MD Primary Care Provider [phone] Angie Arnold DO Primary Care Provider [phone] Moshe Carrasco BRANCH MANAGER, PHARM SPEC Unavailable + [phone] Agatha Vallecillo BRANCH MANAGER, PHARM SPEC Unavailable [phone] Reason for Visit * Reason Comments Medication Refill Encounter Details Date Type Department Care Team (Late st Contact Info) Description 06/14/2020 Refill [facility] Medical Group - Family Medicine [facility] [address] [place] [id number] Lincoln Rosario APRN, PHARM SPEC [address] [address] Medication Refill Social History Tobacco Use Types [...] [facility] Lincoln Rosario APN, PHARM SPEC 1 month ago Benign non-nodular prostatic hyperplasia [...] months Lab, [facility], [facility] In 4 months Larry Vásquez MD [facility], [facility] OIL PAINTER - Recent and Past Visits Recent Visits Date Type Provider Dept 06/07/20 Office Visit Lincoln Rosario APN, PHARM SPEC [facility] 04[facility]20 Office Visit Larry Vásquez MD [facility] 10/26/19 Office Visit Larry Vásquez MD [facility] 04/25/19 Office Visit Larry Vásquez MD [facility] Showing recent visits within past 460 [...] Description 07/23/2025 1:00 PM CDT Office Visit [facility] Medical [facility] - Pulmonology & Sleep Medicine - [place] [address] [place] [address] Agatha Vallecillo APRN, PHARM SPEC [address]2 [facility] [address] [place] [address] 08/03/2025 2:20 PM CDT Office Visit [facility] Medical [facility] - Family Medicine - [place] [address] [place] [address] Angie Arnold, DO 2 [facility]. [address] [place] [address] documented as of this encounter Visit Diagnoses Diagnosis Acute bilateral low back pain with bilateral sciatica documented in this encounter Additional Health Concerns Assessment Noted Time PHQ-9 Depression Total Score: 0 04/25/20 20 2:41 PM CDT documented as of this encounter Care Teams Tile Mason Relationship Specialty Start Date End Date Larry Vásquez MD #2 [facility] [address] [place] [address] PCP - General Family Medicine 08/29/15 10/27/20 Bruno Prather MD #[address] [address] PCP - General Family Medicine 10/28/20 03/21/24 Angie Arnold DO 2 [facility] [address] [place] [address] PCP - General Family Medicine 03/24/24 Moshe Carrasco APRN, PHARM SPEC [address] [place] [address] Nurse Practitioner Advanced Practice Nurse 05/11/24 Agatha Vallecillo APRN, PHARM SPEC #2 [facility] [address] [place] [address] Nurse Practitioner Advanced Practice Nurse 06/15/24 documented as of this encounter
--- OUTSIDE RECORDS SUMMARY | 2025-05-23 16:53 | XMS_ITS | Encounter Summary ---
Author Organization [facility] Address [address] [place] [address] Phone Care Team Providers Care Chief Of Service Name Role Phone Bruno Prather MD Primary Care Provider [phone] Angie Arnold DO Primary Care Provider [phone] Moshe Carrasco HYPERBARIC TECHNICIAN, DENTAL RESIDENT Unavailable [phone] Agatha Vallecillo HYPERBARIC TECHNICIAN, DENTAL RESIDENT Unavailable [phone] Reason for Visit * Reason Comments Medication Refill Encounter Details Date Type Department Care Team (Late st Contact Info) Description 05/05/2023 Refill [facility] - Family Medicine [facility] [address] [place] [id number] Bruno Prather MD [address] [place] [address] Medication Refill Social History Tobacco Use Types [...] Description 07/23/2025 1:00 PM CDT Office Visit [facility] - Pulmonology & Sleep Medicine - [place] [address]2 [facility] [place] [address] Agatha Vallecillo, HYPERBARIC TECHNICIAN, DENTAL RESIDENT #2 [facility] [address] [place] [address] 08/03/2025 2:20 PM CDT Office Visit [facility] - Family [facility] - [place] [address] [place] [address] Angie Arnold DO 2 [facility] [place] [address] documented as of this encounter Visit Diagnoses Not on filedocumented in this encounter Additional Health Concerns Assessment Noted Time PHQ-9 Depression Total Score: 13 022 1:00 PM CDT documented as of this encounter Care Teams Chief Of Service Relationship Specialty Start Date End Date Bruno Prather MD PCP - General Family Medicine 10/28/20 03/21/24 Angie Arnold DO 2 [facility] [address] [place] [address] PCP - General Family Medicine 03/24/24 Moshe Carrasco APRN, DENTAL RESIDENT [address] [place] [address] Nurse Practitioner Advanced Practice Nurse 05/11/24 Agatha Vallecillo, MATEUS, DENTAL RESIDENT #2 [facility] [address] [place] [address] Nurse Practitioner Advanced Practice Nurse 06/15/24 documented as of this encounter
--- OUTSIDE RECORDS SUMMARY | 2025-05-23 16:53 | XMS_ITS | Encounter Summary ---
Author Organization [facility] Address [address] [place] [address] Phone Care Team Providers Care Air Traffic Control Specialist Center Name Role Phone Larry Vásquez MD Primary Care Provider [phone] Bruno Prather MD Primary Care Provider [phone] Angie Arnold DO Primary Care Provider [phone] Moshe Carrasco [employer] INTERMODAL TRUCK DRIVER, FOOD SERVER Unavailable + [phone] Agatha Vallecillo [employer] INTERMODAL TRUCK DRIVER, FOOD SERVER Unavailable [phone] Reason for Visit * Reason Comments Medication Refill Encounter Details Date Type Department Care Team (Late st Contact Info) Description 10/05/2020 Refill [facility] Medical Group - Family Medicine [facility] [address]2 [place] [id number] Larry Vásquez MD [address] [address] Medication Refill Social History Tobacco Use Types [...] AM CST Prescription approved. Please call in HOUSE TENDER * Telephone Encounter - Daniela Matthews RN [...] Recent Outpatient Visits 2 months ago Dysuria [facility] - Larry Coyle MD 4 months ago Acute bilateral low back pain with bilateral sciatica [facility] - Lincoln Vasquez APN, FOOD SERVER 5 months ago Benign non-nodular prostatic hyperplasia with lower urinary tract symptoms [facility] Larry Coyle MD 11 months ago Essential hypertension [facility] Larry Coyle MD 1 year ago Benign non-nodular prostatic hyperplasia with lower urinary tract symptoms [facility] Larry Coyle MD Upcoming Appointments Future Appointments In 2 weeks [facility] In 3 weeks Larry Vásquez MD [facility] PEDRO Velasquez EXTRACTOR OPERATOR - Recent and Past Visits Recent [...] Recent Outpatient Visits 2 months ago Dysuria [facility] Larry Coyle MD 4 months ago Acute bilateral low back pain with bilateral sciatica [facility] Lincoln Vasquez APN, CEFERINO 5 months ago Benign non-nodular prostatic hyperplasia with lower urinary tract symptoms [facility] Larry Coyle MD 11 months ago Essential hypertension [facility] Larry Coyle MD 1 year ago Benign non-nodular prostatic hyperplasia with lower urinary tract symptoms [facility] Larry Coyle MD Upcoming Appointments Future Appointments In 2 weeks [facility], [facility] PHYSICIAN GROUP LAB, [facility] In 3 weeks Larry V[facility] MD [facility] EXTRACTOR OPERATOR - Recent and Past Visits Recent [...] authorizing provider and meeting all other requirements HOUSE TENDER documented in this encounter Plan of Treatment Upcoming Encounters Date Type Department Care Team (Late st Contact Info) Description 07/23/2025 1:00 PM CDT Office Visit [facility] - Pulmonology & Sleep Medicine - [place] #2 [place] [address] Agatha Vallecillo APRN, FOOD SERVER #2 [facility] [address] [place] [address] 08/03/2025 2:20 PM CDT Office Visit [facility] Family [facility] [place] #2 [place] [address] Angie Arnold DO 2 [facility] [address] [place] [address] documented as of this encounter Visit Diagnoses Not on filedocumented in this encounter Additional Health Concerns Assessment Noted Time PHQ-9 Depression Total Score: 0 07/18/20 20 3:34 PM CDT documented as of this encounter Care Teams Air Traffic Control Specialist Center Relationship Specialty Start Date End Date Larry Vásquez MD #2 [facility] [address] [place] [address] PCP - General Family Medicine 08/29/15 10/27/20 Bruno Prather MD #2 [facility] [address] [place] [address] PCP - General Family Medicine 10/28/20 03/21/24 Angie Arnold DO 2 [facility] [address] [place] [address] PCP - General Family Medicine 03/24/24 Moshe Carrasco APRN, FOOD SERVER #2 [place] [address] Nurse Practitioner Advanced Practice Nurse 05/11/24 Agatha Vallecillo APRN, FOOD SERVER #2 [facility] [address] [address] Nurse Practitioner Advanced Practice Nurse 06/15/24 documented as of this encounter
--- OUTSIDE RECORDS SUMMARY | 2025-05-23 16:53 | XMS_ITS | Encounter Summary ---
Author Organization [facility] Address [address] [place] [address] Phone Care Team Providers Care Plant Senior Manager Name Role Phone Bruno Prather MD Primary Care Provider [phone] Angie Arnold DO Primary Care Provider [phone] Moshe Carrasco CRYSTAL FLAT GRINDER, [employer] HAZMAT TANKER DRIVER Unavailable + [phone] Agatha Vallecillo CRYSTAL FLAT GRINDER, REG[employer] COMPANY HAZMAT TANKER DRIVER Unavailable [phone] Reason for Visit * Reason Comments Medication Refill Encounter Details Date Type Department Care Team (Late st Contact Info) Description 11/25/2020 [facility]ill [facility] [address] [place] [address] Larry Vásquez MD [address] [address] Medication Refill Social History Tobacco [...] COVID-19? No / Unsure 10/28/2020 2:14 PM DRUM TENDER documented as of this encounter Miscellaneous Notes [...] prostatic hyperplasia with lower urinary tract symptoms [facility] - Larry Coyle MD 4 months ago Dysuria [facility] Larry Coyle MD 5 months ago Acute bilateral low back pain with bilateral sciatica [facility] Lincoln Vasquez APN, CEFERINO 7 months ago Benign non-nodular prostatic hyperplasia with lower urinary tract symptoms [facility] Larry Coyle MD 1 year ago Essential hypertension [facility] Larry Coyle MD Upcoming Appointments Future Appointments In 2 months Bruno [facility]ather MD [facility] CLIP FASTENER - Recent and Past Visits Recent Visits Date Type Provider Dept 10/28/20 Office Visit Larry Vásquez MD [facility] 07/18/20 Office Visit Larry Vásquez MD [facility] 06/07/20 Office Visit Lincoln Rosario APN, CNP [facility] 04/25/20 Office Visit Larry Vásquez MD [facility] 10/26/19 Office Visit Larry Vásquez MD [facility] Showing recent visits [...] prostatic hyperplasia with lower urinary tract symptoms [facility] 4 months ago Dysuria [facility] Larry Coyle MD 5 months ago Acute bilateral low back pain with bilateral sciatica [facility] APN, CNP 7 months ago Benign non-nodular prostatic hyperplasia with lower urinary tract symptoms [facility] MD 1 year ago Essential hypertension [facility] MD Upcoming Appointments Future Appointments In 2 months Bruno Prather MD [facility]IP FAST[facility] - Recent and Past Visits Recent Visits Date Type Provider Dept 10/28/20 Office Visit Larry Vásquez MD [facility] 07/18/20 Office Visit Larry Vásquez MD [facility] 06/07/20 Office Visit Lincoln Rosario APN, CNP [facility] 04/25/20 Office Visit Larry Vásquez MD [facility] 10/26/19 Office Visit Larry Vásquez MD [facility] [place] Showing recent visits within past 460 days with a meds authorizing provider and meeting all other requirements Future Appointments Date Type Provider Dept 01/27/21 Appointment Bruno Prather MD [facility] [place] Showing future appointments [...] prostatic hyperplasia with lower urinary tract symptoms [facility] Larry Coyle MD 4 months ago Dysuria [facility] Larry Coyle MD 5 months ago Acute bilateral low back pain with bilateral sciatica [facility] APN, REG[employer] COMPANY HAZMAT TANKER DRIVER 7 months ago Benign non-nodular prostatic hyperplasia with lower urinary tract symptoms [facility] Larry Coyle MD 1 year ago Essential hypertension [facility] Larry Coyle MD Upcoming Appointments Future Appointments In 2 months Bruno Prather MD [facility] CLIP FASTENER - Recent and Past Visits Recent Visits Date Type Provider Dept 10/28/20 Office Visit Larry Vásquez MD [facility] 07/18/20 Office Visit Larry Vásquez MD [facility] 06/07/20 Office Visit Lincoln Rosario APN, CNP [facility] 04/25/20 Office Visit Larry Vásquez MD [facility] 10/26/19 Office Visit Larry Vásquez MD [facility] Showing recent visits within past 460 days with a meds authorizing provider and meeting all other requirements Future Appointments Date Type Provider Dept 01/27/21 Appointment Bruno Prather MD [facility] Showing future appointments within next 90 days with a meds authorizing provider and meeting all other requirements TENDER documented in this encounter Plan of Treatment Upcoming Encounters Date Type Department Care Team (Late st Contact Info) Description 07/23/2025 1:00 PM CDT Office Visit [facility] - Pulmonology & Sleep Medicine [facility] [address] [place] [address] Agatha Vallecillo APRN, CEFERINO [address] [address] 08/03/2025 2:20 PM CDT [facility] Family [facility] [place] #[address] [place] [address] [address] [facility] [place] [address] documented as of this encounter Visit Diagnoses Not on filedocumented in this encounter Additional Health Concerns Assessment Noted Time PHQ-9 Depression Total Score: 0 07/18/20 20 3:34 PM CDT documented as of this encounter Care Teams Plant Senior Manager Relationship Specialty Start Date End Date Bruno Prather MD PCP - General Family Medicine 10/28/20 03/21/24 Angie Arnold DO [address] [address] PCP - General Family Medicine 03/24/24 Moshe Carrasco APRN, REGIONAL COMPANY HAZMAT TANKER DRIVER [address] [place] [address] Nurse Practitioner Advanced Practice Nurse 05/11/24 Agatha Vallecillo APRN, REGIONAL COMPANY HAZMAT TANKER DRIVER #[address] [address] Nurse Practitioner Advanced Practice Nurse 06/15/24 documented as of this encounter
--- OUTSIDE RECORDS SUMMARY | 2025-05-23 16:53 | XMS_ITS | Encounter Summary ---
Author Organization [facility] Address [address] [place] [address] Phone Care Team Providers Care Matrix Plater Name Role Phone Bruno Prather MD Primary Care Provider [phone] Angie Arnold DO Primary Care Provider [phone] Moshe Carrasco OPTOMETRIC ASSISTANT, BUFFET ATTENDANT Unavailable + [phone] Agatha Vallecillo OPTOMETRIC ASSISTANT, BUFFET ATTENDANT Unavailable [phone] Reason for Visit * Reason Comments Medication Refill Encounter Details Date Type Department Care Team (Late st Contact Info) Description 06/29/[address] [facility] Medical Group - Family Medicine [facility] #2 [place] [phone] Larry Vásquez MD #[address] [address] Medication Refill Social History Tobacco Use Types [...] Description 07/23/2025 1:00 PM CDT Office Visit [facility] Medical [facility] - Pulmonology & Sleep Medicine - [place] #2 [place] [address] Agatha Vallecillo APRN, BUFFET ATTENDANT #[address] [address] 08/03/2025 2:20 PM CDT Office Visit [facility] Medical [facility] - Family Medicine - [place] #[address] [place] [address] Angie Arnold, DO [address] [facility] [place] [address] documented as of this encounter Visit Diagnoses Not on filedocumented in this encounter Additional Health Concerns Assessment Noted Time PHQ-9 Depression Total Score: 0 07/18/20 20 3:34 PM CDT documented as of this encounter Care Teams Matrix Plater Relationship Specialty Start Date End Date Bruno Prather MD PCP - General Family Medicine 10/28/20 03/21/24 Angie Arnold DO 2 [address] [facility] [place] [address] PCP - General Family Medicine 03/24/24 Moshe Carrasco APRN, BUFFET ATTENDANT #2 [place] [address] Nurse Practitioner Advanced Practice Nurse 05/11/24 Agatha Vallecillo APRN, BUFFET ATTENDANT #[address] [facility] [place] [address] Nurse Practitioner Advanced Practice Nurse 06/15/24 documented as of this encounter
--- OUTSIDE RECORDS SUMMARY | 2025-05-23 16:53 | XMS_ITS | Encounter Summary ---
Author Organization [facility] Address [address] [place] [address] Phone Care Team Providers Care Supplier Quality Name Role Phone Bruno Prather MD Primary Care Provider Angie rAnold DO Primary Care Provider Moshe Carrasco SORTING GRAPPLE OPERATOR, BASIC SCIENCES DEAN Unavailable + [phone] Agatha Vallecillo SORTING GRAPPLE OPERATOR, BASIC SCIENCES DEAN Unavailable [phone] Reason for Visit * Reason Comments Medication Refill Encounter Details Date Type Department Care Team (Late st Contact Info) Description 10/10/2021 [facility]ill [facility] [address] [place] [address] Bruno Prather MD #1 [place] [address] Medication Refill Social History Tobacco [...] Velasquez 10/28/20 Office Visit Larry Vásquez MD [facility] Showing recent visits within past 365 days and meeting all other requirements Future Appointments No visits were found meeting these conditions. Showing future appointments within next 90 days and meeting all other requirements EDGE STITCHER HAND documented in this encounter Plan of Treatment Upcoming Encounters Date Type Department Care Team (Late st Contact Info) Description 07/23/2025 1:00 PM CDT Office Visit [facility] Medical [facility] - Pulmonology & Sleep Medicine - [place] [address]2 [place] [address] Agatha Vallecillo APRN, BASIC SCIENCES DEAN #[address] [address] 08/03/2025 2:20 PM CDT Office Visit [facility] Medical [facility] - Family Medicine - [place] #2 [place] [address] Angie Arnold DO 2 [address] [facility] [place] [address] documented as of this encounter Visit Diagnoses Not on filedocumented in this encounter Additional Health Concerns Assessment Noted Time PHQ-9 Depression Total Score: 0 07/18/20 20 3:34 PM CDT documented as of this encounter Care Teams Supplier Quality Relationship Specialty Start Date End Date Bruno Prather MD PCP - General Family Medicine 10/28/20 03/21/24 Angie Arnold DO 2 [address] [facility] [place] [address] PCP - General Family Medicine 03/24/24 Moshe Carrasco APRN, BASIC SCIENCES DEAN #2 [place] [address] Nurse Practitioner Advanced Practice Nurse 05/11/24 Agatha Vallecillo APRN, CEFERINO #2 [facility] [place] [address] Nurse Practitioner Advanced Practice Nurse 06/15/24 documented as of this encounter
--- OUTSIDE RECORDS SUMMARY | 2025-05-23 16:53 | XMS_ITS | Encounter Summary ---
Author Organization [facility] Address [address] [place] [address] Phone Care Team Providers Care Specialty Trimmer Name Role Phone Bruno Prather MD Primary Care Provider Angie Arnold DO Primary Care Provider [phone] Moshe Carrasco INGREDIENT SCALER, SEQUINS WINDER Unavailable [phone] Agatha Vallecillo INGREDIENT SCALER, SEQUINS WINDER Unavailable [phone] Reason for Visit * Reason Comments Medication Refill Encounter Details Date Type Department Care Team (Late st Contact Info) Description 11/11/2022 Refill [facility] Medical Group - Family Medicine [facility] #2 [place] [phone] Bruno Prather MD #1 [place] [address] Medication Refill Social History Tobacco Use Types [...] Coronavirus/COVID-19? No / Unsure 10/16/2022 9:32 AM SOLE FILLER documented as of this encounter Miscellaneous Notes [...] Dept 10/08/22 Office Visit Lincoln Rosario APRN, SEQUINS WINDER [facility] 05/21/22 Office Visit Bruno Prather MD [facility] Showing recent visits within past 182 days and meeting all other requirements Future Appointments Date Type Provider Dept 11/26/22 Appointment Bruno Prather MD [facility] Showing future appointments within next 90 days and meeting all other requirements Passed - Patient has established therapy with Serotonin-Norepinephrine Reuptake Inhibitors for at least 6 months FILLER documented in this encounter Plan of Treatment Upcoming Encounters Date Type Department Care Team (Late st Contact Info) Description 07/23/2025 1:00 PM CDT Office Visit [facility] Medical [facility] - Pulmonology & Sleep Medicine - [place] #2 [place] [address] Agatha Vallecillo APRN, SEQUINS WINDER [address] [address] 08/03/2025 2:20 PM CDT Office Visit [facility] Family [facility] #[address] [place] [address] Angie Arnold DO [address] [facility] [address] [place] [address] documented as of this encounter Visit Diagnoses Not on filedocumented in this encounter Additional Health Concerns Assessment Noted Time PHQ-9 Depression Total Score: 13 022 1:00 PM CDT documented as of this encounter Care Teams Specialty Trimmer Relationship Specialty Start Date End Date Bruno Prather MD PCP - General Family Medicine 10/28/20 03/21/24 Angie Arnold DO [address] [place] [facility] [place] [address] PCP - General Family Medicine 03/24/24 Moshe Carrasco APRN, SEQUINS WINDER #[address] [place] [address] Nurse Practitioner Advanced Practice Nurse 05/11/24 Agatha Vallecillo APRN, SEQUINS WINDER #[address] [address] Nurse Practitioner Advanced Practice Nurse 06/15/24 documented as of this encounter
--- OUTSIDE RECORDS SUMMARY | 2025-05-23 16:53 | XMS_ITS | Encounter Summary ---
Author Organization [facility] Address [address] [place] [address] Phone Care Team Providers Care Director Of Physical Therapy Name Role Phone Bruno Prather MD Primary Care Provider Angie Arnold DO Primary Care Provider Moshe Carrasco SHEET ROCK APPLICATOR, INSIGHT LEADER Unavailable [phone] Agatha Vallecillo SHEET ROCK APPLICATOR, INSIGHT LEADER Unavailable [phone] Reason for Visit * Reason Comments Medication Refill Encounter Details Date Type Department Care Team (Late st Contact Info) Description 08/19/2021 Refill [facility] Medical Group - Family Medicine [facility] #2 [place] [phone] Bruno Prather MD #1 [place] [address] Medication Refill Social History Tobacco Use Types [...] Niki Hickey RN - 08/19/2021 12:57 PM PROCUREMENT REPRESENTATIVE Medication failed the protocol, provider to review [...] Dept 07/25/21 Office Visit [facility] 04/[facility]/21 Office Visit Bruno Prather MD [facility] 01/17/21 Office Visit Bruno [facility] MD [facility] 10/28/20 Office Visit Larry Vásquez MD [facility] Showing recent visits within past 365 days and meeting all other requirements Future Appointments No visits were found meeting these conditions. Showing future appointments within next 90 days and meeting all other requirements UREMENT REPRESENTATIVE documented in this encounter Plan of Treatment Upcoming Encounters Date Type Department Care Team (Late st Contact Info) Description 07/23/2025 1:00 PM CDT Office Visit [facility] Medical Group - Pulmonology & Sleep Medicine - [place] [address] [place] [address] Agatha Vallecillo APRN, INSIGHT LEADER [address] [address] 08/03/2025 2:20 PM CDT Office Visit [facility] Medical Group - Family Medicine - [place] #[address] [place] [address] Angie Arnold DO 2 [address] [facility] [place] [address] documented as of this encounter Visit Diagnoses Not on filedocumented in this encounter Additional Health Concerns Assessment Noted Time PHQ-9 Depression Total Score: 0 07/18/20 20 3:34 PM CDT documented as of this encounter Care Teams Director Of Physical Therapy Relationship Specialty Start Date End Date Bruno Prather MD PCP - General Family Medicine 10/28/20 03/21/24 Angie Arnold DO 2 [address] [facility] [address] PCP - General Family Medicine 03/24/24 Moshe Carrasco APRN, INSIGHT LEADER #[address] [place] [address] Nurse Practitioner Advanced Practice Nurse 05/11/24 Agatha Vallecillo APRN, INSIGHT LEADER [address] [address] Nurse Practitioner Advanced Practice Nurse 06/15/24 documented as of this encounter
--- OUTSIDE RECORDS SUMMARY | 2025-05-23 16:53 | XMS_ITS | Encounter Summary ---
Author Organization [facility] Address [address] [place] [address] Phone Care Team Providers Care Grommet Worker Name Role Phone Bruno Prather MD Primary Care Provider [phone] Angie Arnold DO Primary Care Provider [phone] Moshe Carrasco SHAREPOINT APPLICATION ARCHITECT, HALL SUPERVISOR Unavailable + [phone] Agatha Vallecillo SHAREPOINT APPLICATION ARCHITECT, HALL SUPERVISOR Unavailable [phone] Reason for Visit * Reason Comments Medication Refill Encounter Details Date Type Department Care Team (Late st Contact Info) Description 04/23/2021 Refill [facility] Medical Group - Family Medicine [facility] #2 [place] [id number] Larry Vásquez MD #[address] [address] Medication Refill Social History Tobacco Use Types [...] Chronic bilateral low back pain without sciatica [facility] Bruno Garay MD 3 months ago GOPAL on CPAP [facility] Bruno Garay MD 5 months ago Benign non-nodular prostatic hyperplasia with lower urinary tract symptoms [facility] Larry Coyle MD 9 months ago Dysuria [facility] Larry Coyle MD 10 months ago Acute bilateral low back pain with bilateral sciatica [facility] Lincoln Vasquez APN, HALL SUPERVISOR Upcoming Appointments Future Appointments In 3 months Bruno Prather MD [facility] Ron [facility] PURCHASING CONTRACTING CLERK - Recent and Past Visits Recent Visits [...] Description 07/23/2025 1:00 PM CDT Office Visit [facility] - Pulmonology & Sleep Medicine - [place] #2 [facility] [place] [address] Agatha Vallecillo APRN, HALL SUPERVISOR #2 [facility] [address] [place] [address] 08/03/2025 2:20 PM CDT Office Visit [facility] Family [facility] - [place] #2 [place] [address] Angie Arnold DO 2 [facility] [address] [place] [address] documented as of this encounter Visit Diagnoses Not on filedocumented in this encounter Additional Health Concerns Assessment Noted Time PHQ-9 Depression Total Score: 0 07/18/20 20 3:34 PM CDT documented as of this encounter Care Teams Grommet Worker Relationship Specialty Start Date End Date Bruno Prather MD PCP - General Family Medicine 10/28/20 03/21/24 Angie Arnold DO 2 [facility] [address] [place] [address] PCP - General Family Medicine 03/24/24 Moshe Carrasco, SHAREPOINT APPLICATION ARCHITECT, HALL SUPERVISOR #2 [place] [address] Nurse Practitioner Advanced Practice Nurse 05/11/24 Agatha Vallecillo, MATEUS, HALL SUPERVISOR #[address] [address] Nurse Practitioner Advanced Practice Nurse 06/15/24 documented as of this encounter
--- OUTSIDE RECORDS SUMMARY | 2025-05-23 16:53 | XMS_ITS | Encounter Summary ---
Author Organization [facility] Address [address] [place] [address] Phone Care Team Providers Care Work Environment Safety Inspector Name Role Phone Angie Arnold DO Primary Care Provider [phone] Moshe Carrasco LOG FEEDER, SCOOP OPERATOR Unavailable + [phone] Agatha Vallecillo LOG FEEDER, SCOOP OPERATOR Unavailable [phone] Reason for Visit * Reason Comments Medication Refill Encounter Details Date Type Department Care Team (Late st Contact Info) Description 03/24/2024 Refill [facility] Medical Group - Family Medicine [facility] #2 [place] [address] Bruno Prather MD #1 [place] [address] Medication Refill Social History Tobacco Use Types Packs/Day Years Used Date Smoking Tobacco: Former Cigarettes Q uit: 02/23/2019 Smokeless Tobacco: Never Alcohol Use Standard Drinks/Week Comments Not Currently 6 (1 standard drink = 0.6 oz pur e alcohol) [facility] Utilities Answer Date Recorded In the past 12 months has [employer] electric, gas, oil, or water company threatened to shut off services in your home? No 03/24/2024 Social Connection and Isolation Panel Answer Date Recorded In a typical week, how many times do you talk on the phone with family, friends, or neighbors? Once a week 03/24/2024 How often do you get together with friends or re latives? Twice a week 03/24/2024 Attends Che[employer] Services Not on file 03/24 Active Member [...] Score - Questions 1-9 0 08/0 12/2022 [facility] Occupat ional [facility] - Occupational Stress Questionnaire Answer Date Recorded [...] time in the past 12 m [facility], were you homeless or living in a [...] times a month 03/24/2024 12:54 PM CDT [facility] Emily Ios * Q2: How many drinks containing alcohol do you have on a typical day when you are drinking? Answer Date of Assessment Author 1 or 2 03/24/2024 12:54 PM T [facility] Al ton Ios * Question Answer Date [...] Dept 09/13/23 Office Visit Bruno Prather MD [facility] 06/30/23 Office Visit Lincoln Rosario APRN, SCOOP OPERATOR [facility] 05/13/23 Office Visit Bruno Prather MD [facility] Showing recent visits within past 365 days and meeting all other requirements Today's Visits Date Type Provider Dept 03/24/24 Office Visit Angie Arnold DO [facility] Emily Showing today's visits and meeting all other requirements Future Appointments Date Type Provider Dept 05/29/24 Appointment Angie Arnold DO [facility] Emily Showing future appointments within next 90 days and meeting all other requirements documented in this encounter Plan of Treatment Upcoming Encounters Date Type Department Care Team (Late st Contact Info) Description 07/23/2025 1:00 PM CDT Office Visit [facility] Medical [facility] - Pulmonology & Sleep Medicine - [place] #2 [place] [address] Agatha Vallecillo APRN, SCOOP OPERATOR #2 [facility] [address] [place] [address] 08/03/2025 2:20 PM CDT Office Visit [facility] Medical Group - Family Medicine - [place] #2 [facility] [address] Angie Arnold DO 2 [facility]. [address] [place] [address] documented as of this encounter Visit Diagnoses Not on filedocumented in this encounter Additional Health Concerns Assessment Noted Time PHQ-9 Depression Total Score: 0 05/13/20 7:00 AM CDT documented as of this encounter Care Teams Work Environment Safety Inspector Relationship Specialty Start Date End Date Angie Arnold DO 2 [facility] ED [facility]. [address] [place] [address] PCP - General Family Medicine 03/24/24 Moshe Carrasco APRN, SCOOP OPERATOR #2 [place] [address] Nurse Practitioner Advanced Practice Nurse 05/11/24 Agatha Vallecillo APRN, SCOOP OPERATOR #2 [facility] [address] [place] [address] Nurse Practitioner Advanced Practice Nurse 06/15/24 documented as of this encounter
--- OUTSIDE RECORDS SUMMARY | 2025-05-23 16:53 | XMS_ITS | Clinical Summary ---
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 More than three times a week 07/15/2023 How often do you get togethe r with friends or relatives? More than three times a week 07/15/2023 How often do you attend [facility] or [facility]ucianism services? Never 07/15/2023 Do you belong to any clubs o r organizations such as cheondoism groups, unions, fraternal or athletic groups, or [...] place to sleep or slept in a senior care (including now)? No 07/15/2023 Personal Safety Answer Date Recorded Have you ever been in or are you currently in a harmful physical or emotional relationship or is someone making you feel afraid or unsafe? Denies 07/14/2023 Sex and Gender Information Value Date Recorded Sex Assigned at Not on file Legal Sex Male 11:50 PM DISTRIBUTION CENTER SUPERVISOR Gender Identity Not on file Sexual Orientation [...] 116.1 kg (256 lb) 08/17/2023 2:02 PM DISTRIBUTION CENTER SUPERVISOR Height 177.8 cm (5' 10) 08/17/2023 2:02 PM DISTRIBUTION CENTER SUPERVISOR Body Mass Index 36.73 08/17/2023 2:02 PM DISTRIBUTION CENTER SUPERVISOR Plan of Treatment Health Maintenance Due Date Last Done Comments Colon Cancer Screening-Colonoscopy 1962 Depression Screening 1962 Hepatitis C Screening 1962 Prostate Cancer Screening-PSA 1962 DTaP/Tdap/Td Vaccine (1 - Tdap) 1973 Hepatitis B Screening 1980 Regular Well Visit/Exam 18-64 1980 Zoster Vaccine (1 of 2) 2012 Influenza Vaccine (#1) 2025 7, 08/12/2016, 07/09/2011 Pneumococcal vaccine <65 Aged Out No longer eligible based on patient's age to complete this topic Medical Devices Implanted Type Area Cattle Killer Device Identifier Shelf Expiration Date Model / Serial / Lot [employer] [id number] 58mm Limit Hole Color Coded Hip G Hemisphere Offset Shell - [id number] Implanted:Qty: 1 on 10/01/2021 by Fletcher Silverman MD at [facility] Right: Hip [employer] 07/09/2031 [id number] / / [id number] [employer] [id number] Trilogy 6.5mm 25mm Self Tap Screw Bone - [id number] Implanted:Qty: 1 on 10/01/2021 by Fletcher Silverman MD at [facility] Right: Hip [employer] 08/26/2031 [id number] / / [id number] [employer] [id number] 36mm Lumen Hip G Liner Acetabular Longevity Sterile Latex Free - [id number] Implanted:Qty: 1 on 10/01/2021 by Fletcher Silverman MD at [facility] Right: Hip [employer] 08/01/[id number] / / [id number] [employer] 650-1057 G7 36mm Hip Head Femoral Biolox Delta Option - [id number] Implanted:Qty: 1 on 10/01/2021 by Fletcher Silverman MD at [facility] Right: Hip [employer] 01/01/2031 650-1057 / / [id number] [employer] [id number] Echo Bi-Metric 13mm 145mm Noncollar Reduce Proximal Profile Press - [id number] Implanted:Qty: 1 on 10/01/2021 by Fletcher Silverman MD at [facility] Right: Hip [employer] 06/24/2031 [id number] / / [id number] [employer] 650-1066 G7 Type 1 Hip Standard Offset Taper Sleeve Centering Titanium - [id number] Implanted:Qty: 1 on 10/01/2021 by Fletcher Silverman MD at [facility] Right: Hip [employer] 07/14/2031 650-1066 / / [id number] [employer] Echo Bi-Metric 11mm 135mm Noncollar Reduce Proximal Profile Press [id number] - [id number] Implanted:Qty: 1 on 07/14/2023 by Fletcher Silverman MD at [facility] Left: Hip [employer] [id number] 04/09/2033 [id number] / / [id number] [employer] Trilogy 6.5mm 25mm Self Tap Screw Bone [id number] - [id number] Implanted:Qty: 1 on 07/14/2023 by Fletcher Silverman MD at [facility] Left: Hip [employer] [id number] 04/21/2033 [id number] / / [id number] [employer] G7 36mm Hip Head Femoral Biolox Delta Option 650-1057 - [id number] Implanted:Qty: 1 on 07/14/2023 by Fletcher Silverman MD at [facility] Left: Hip [employer] [id number] 02/03/2033 650-1057 / / [id number] [employer] G7 Type 1 Hip -6mm Offset Taper Sleeve Centering Titanium Biolox 650-1064 - [id number] Implanted:Qty: 1 on 07/14/2023 by Fletcher Silverman MD at [facility] Left: Hip [employer] [id number] 11/10/2032 650-1064 / / [id number] [employer] G7 56mm Limit Hole Color Coded Hip F Hemisphere Offset Shell [id number] - [id number] Implanted:Qty: 1 on 07/14/2023 by Fletcher Silverman MD at [facility] Left: Hip [employer] [id number] 04/20/2033 [id number] / / [id number] [employer] Trilogy 6.5mm 25mm Self Tap Screw Bone [id number] - [id number] Implanted:Qty: 1 on 07/14/2023 by Fletcher Silverman MD at [facility] Left: Hip [employer] [id number] 04/23/2033 [id number] / / [id number] [employer] G7 36mm Lumen Hip F Liner Acetabular Longevity Sterile Latex Free [id number] - [id number] Implanted:Qty: 1 on 07/14/2023 by Fletcher Silverman MD at [facility] Left: Hip [employer] [id number] 03/10/[id number] / / [id number] Insurance [employer] SIG [id number] [facility] MEDICARE ADVANTAGE [facility] MEDICARE ADVANTAGE Advance Directives For more information, please contact: [phone] * Full Code (Latest Code Status on File) Date Activated Date Inactivated Comments 07/14/2023 1:47 PM 07/15/2023 6:40 PM * Full Code Date Activated Date Inactivated Comments 10/01/2021 3:44 PM 10/03/2021 6:09 PM Care Teams Community Health Nursing Director Relationship Specialty Start Date End Date Bruno Prather MD [address] [address] PCP - General Family Medicine 05/26/23
--- OUTSIDE RECORDS SUMMARY | 2025-05-23 16:53 | XMS_ITS | Encounter Summary ---
Author Organization [facility] Address [address] [place] [address] Phone Care Team Providers Care Haunted History Tour Guide Name Role Phone Bruno Prather MD Primary Care Provider [phone] Angie Arnold DO Primary Care Provider [phone] Moshe Carrasco LUMBER BUYER, AUDIO/VIDEO ENGINEER Unavailable + [phone] Agatha Vallecillo LUMBER BUYER, AUDIO/VIDEO ENGINEER Unavailable [phone] Reason for Visit * Reason Comments Medication Refill Encounter Details Date Type Department Care Team (Late st Contact Info) Description 07/28/2022 Refill [facility] Medical Group - Family Medicine [facility] #2 [place] [id number] Larry Vásquez MD #[address] [address] Medication Refill Social History Tobacco Use Types [...] Description 07/23/2025 1:00 PM CDT [facility] - Pulmonology & Sleep Medicine - [place] #2 [facility] [address] Agatha Vallecillo APRN, AUDIO/VIDEO ENGINEER #2 [facility] [address] [place] [address] 08/03/2025 2:20 PM CDT [facility] - [facility] - [place] #2 [facility] [place] [address] DO 2 [facility] [address] [place] [address] documented as of this encounter Visit Diagnoses Not on filedocumented in this encounter Additional Health Concerns Assessment Noted Time PHQ-9 Depression Total Score: 13 022 1:00 PM CDT documented as of this encounter Care Teams Haunted History Tour Guide Relationship Specialty Start Date End Date Bruno Prather MD PCP - General Family Medicine 10/28/20 03/21/24 Angie Arnold DO 2 [facility] [address] [place] [address] PCP - General Family Medicine 03/24/24 Moshe Carrasco APRN, AUDIO/VIDEO ENGINEER #2 [place] [address] Nurse Practitioner Advanced Practice Nurse 05/11/24 Agatha Vallecillo APRN, AUDIO/VIDEO ENGINEER #[address] [address] Nurse Practitioner Advanced Practice Nurse 06/15/24 documented as of this encounter
--- OUTSIDE RECORDS SUMMARY | 2025-05-23 16:53 | XMS_ITS | Encounter Summary ---
Author Organization [facility] Address [address] [place] [address] Phone Care Team Providers Care Slide Developer Name Role Phone Larry Vásquez MD Primary Care Provider [phone] Bruno Prather MD Primary Care Provider [phone] Angie Arnold DO Primary Care Provider [phone] Moshe Carrasco APPOINTMENT SETTER, MICROWAVE REMOTE SENSING SCIENTIST Unavailable + [phone] Agatha Vallecillo APPOINTMENT SETTER, MICROWAVE REMOTE SENSING SCIENTIST Unavailable [phone] Reason for Visit * Reason Comments Medication Refill Encounter Details Date Type Department Care Team (Late st Contact Info) Description 06/01/2020 Refill [facility] Medical Group - Family Medicine [facility] #2 [place] [id number] Larry Vásquez MD #[address] [address] Medication Refill Social History Tobacco Use Types [...] prostatic hyperplasia with lower urinary tract symptoms [facility] Medical Group - Primary Care Larry Vásquez MD 7 months ago Essential hypertension [facility] Medical Group - Primary Care Larry Vásquez MD 1 year ago Benign non-nodular prostatic hyperplasia with lower urinary tract symptoms [facility] Medical Group - Primary Care Larry Vásquez MD 1 year ago Idiopathic chronic gout of multiple sites without tophus [facility] Medical Group - Primary Care Larry Vásquez MD 1 year ago Idiopathic chronic gout of multiple sites without tophus [facility] Medical Group - Primary Care Larry Vásquez MD Upcoming Appointments Future Appointments In 4 months Lab, [facility] PHYSICIAN GROUP [facility], [facility] In 4 months Larry Vásquez MD [facility] Medical Group - Primary [facility], [facility] GEAR NICKER - Recent and Past Visits Recent Visits Date Type Provider Dept 04/25/20 Office Visit Larry Vásquez MD [facility] 10/26/19 Office Visit Larry Vásquez MD [facility] 04/25/19 Office Visit Larry V[facility] MD [facility] [place] Showing recent visits within past 460 [...] 07/23/2025 1:00 PM CDT Office Visit [facility] - Pulmonology & Sleep Medicine - [place] #2 [place] [address] Agatha Vallecillo APRN, MICROWAVE REMOTE SENSING SCIENTIST #2 [facility] [address] [place] [address] 08/03/2025 2:20 PM CDT Office Visit [facility] Family [facility] - [place] #2 [facility] [place] [address] Angie Arnold DO 2 [facility] [address] [place] [address] documented as of this encounter Visit Diagnoses Not on filedocumented in this encounter Additional Health Concerns Assessment Noted Time PHQ-9 Depression Total Score: 0 04/25/20 20 2:41 PM CDT documented as of this encounter Care Teams Slide Developer Relationship Specialty Start Date End Date Larry Vásquez MD #2 [facility] [address] [place] [address] PCP - General Family Medicine 08/29/15 10/27/20 Bruno Prather MD #2 [facility] [address] [place] [address] PCP - General Family Medicine 10/28/20 03/21/24 Angie Arnold DO 2 [facility] [address] [place] [address] PCP - General Family Medicine 03/24/24 Moshe Carrasco APRN, MICROWAVE REMOTE SENSING SCIENTIST #2 [place] [address] Nurse Practitioner Advanced Practice Nurse 05/11/24 Agatha Vallecillo APRN, MICROWAVE REMOTE SENSING SCIENTIST #[address] [address] Nurse Practitioner Advanced Practice Nurse 06/15/24 documented as of this encounter
--- OUTSIDE RECORDS SUMMARY | 2025-05-23 16:53 | XMS_ITS | Encounter Summary ---
Author Organization [facility] Address [address] [place] [address] Phone Care Team Providers Care Api Product Manager Name Role Phone Bruno Prather MD Primary Care Provider Angie Arnold DO Primary Care Provider [phone] Moshe Carrasco MEDICAL RECORD RETRIEVAL SPECIALIST, MUSIC ENGINEER Unavailable + [phone] Agatha Vallecillo MEDICAL RECORD RETRIEVAL SPECIALIST, MUSIC ENGINEER Unavailable [phone] Reason for Visit * Reason Comments Medication Refill Encounter Details Date Type Department Care Team (Late st Contact Info) Description 10/03/2021 Refill [facility] Medical Group - Family Medicine [facility] #2 [place] [address] Bruno Prather MD #1 [place] [address] Medication Refill Social History Tobacco Use Types [...] [place] 10/28/20 Office Visit Larry V[facility]quez MD [facility] Showing recent visits within past 365 days and meeting all other requirements Future Appointments No visits were found meeting these conditions. Showing future appointments within next 90 days and meeting all other requirements [facility] documented in this encounter Plan of Treatment Upcoming Encounters Date Type Department Care Team (Late st Contact Info) Description 07/23/2025 1:00 PM CDT Office Visit [facility] - Pulmonology & Sleep Medicine - [place] #2 [place] [address] Agatha Vallecillo APRN, MUSIC ENGINEER #2 [facility] [address] [place] [address] 08/03/2025 2:20 PM CDT Office Visit [facility] Medical [facility] Family [facility] - [place] #2 [place] [address] Angie Arnold DO 2 [facility] [address] [place] [address] documented as of this encounter Visit Diagnoses Not on filedocumented in this encounter Additional Health Concerns Assessment Noted Time PHQ-9 Depression Total Score: 0 07/18/20 20 3:34 PM CDT documented as of this encounter Care Teams Api Product Manager Relationship Specialty Start Date End Date Bruno Prather MD PCP - General Family Medicine 10/28/20 03/21/24 Angie Arnold DO 2 [facility] ED [address] [address] PCP - General Family Medicine 03/24/24 Moshe Carrasco APRN, MUSIC ENGINEER #2 [place] [address] Nurse Practitioner Advanced Practice Nurse 05/11/24 Agatha Vallecillo APRN, MUSIC ENGINEER #[address] [facility] [address] [address] [place] [address] Nurse Practitioner Advanced Practice Nurse 06/15/24 documented as of this encounter
--- OUTSIDE RECORDS SUMMARY | 2025-05-23 16:53 | XMS_ITS | Encounter Summary ---
Author Organization [facility] Address [address] [place] [address] Phone Care Team Providers Care [place] Manager Name Role Phone Bruno Prather MD Primary Care Provider Angie Arnold DO Primary Care Provider Moshe Carrasco CHAIR PAD MAKER, LEAD REFINERY SUPERVISOR Unavailable [phone] Agatha Vallecillo CHAIR PAD MAKER, LEAD REFINERY SUPERVISOR Unavailable [phone] Reason for Visit * Reason Comments Medication Refill Encounter Details Date Type Department Care Team (Late st Contact Info) Description 01/03/2024 Refill [facility] - Family Medicine [facility] [address] [place] [phone] Bruno Prather MD [address] [place] [address] Medication Refill Social History Tobacco Use Types [...] 06/30/23 Office Visit [facility] 05/13/23 Office Visit Burno Prather MD [facility] 01/04/23 Office Visit [...] Description 07/23/2025 1:00 PM CDT Office Visit [facility] - Pulmonology & Sleep Medicine [facility] [address]2 [place] [address] Agatha Vallecillo APRN, LEAD REFINERY SUPERVISOR #[address] [address] 08/03/2025 2:20 PM CDT Office Visit [facility] Family [facility] [address] [place] [address] Angie Arnold DO [address] [address] documented as of this encounter Visit Diagnoses Not on filedocumented in this encounter Additional Health Concerns Assessment Noted Time PHQ-9 Depression Total Score: 0 05/13/20 23 7:00 AM CDT documented as of this encounter Care Teams [place] Manager Relationship Specialty Start Date End Date Bruno Prather MD PCP - General Family Medicine 10/28/20 03/21/24 Angie Arnold DO 2 [facility] [address] [place] [address] PCP - General Family Medicine 03/24/24 Moshe Carrasco APRN, CEFERINO [address]2 [place] [address] Nurse Practitioner Advanced Practice Nurse 05/11/24 Agatha Vallecillo APRN, LEAD REFINERY SUPERVISOR #[address] [place] [id number] Nurse Practitioner Advanced Practice Nurse 06/15/24 documented as of this encounter
--- OUTSIDE RECORDS SUMMARY | 2025-05-23 16:53 | XMS_ITS | Clinical Summary ---
Author Organization [facility] Address [address] [place] [address] Phone Care Team Providers Care Douper Name Role Phone CatalinaAngie Dominik FULTON Primary Care Provider [phone] Moshe Carrasco AUTOMATIC BANDSAW TENDER, LOOP MACHINE OPERATOR Unavailable [phone] Agatha Valleicllo AUTOMATIC BANDSAW TENDER, LOOP MACHINE OPERATOR Unavailable Allergies No known active allergies Medications Cyanocobalamin (VITAMIN B-12 PO) Take by mouth. Activ e finasteride (PROSCAR) 5 MG TabletIndicatio ns:Benign non-nodular prostatic hyperplasia with lower urinary tract symptoms Take 1 Tablet by mouth daily. 90 Tablet 1 09/26/20 24 Active pantoprazole (PROTONIX) 40 MG Tablet Delayed Response Take 1 Tablet by mouth daily. 90 Tablet 1 09/26/20 24 Active tamsulosin (FLOMAX) 0.4 MG Capsule Take 1 Capsule by mouth daily. 90 Capsule 1 09/26/20 24 Active venlafaxine (EFFEXOR-XR) 150 MG CAPSULE SR 24 HR Take 1 Capsule by mouth daily. 90 Capsule 1 09/26/20 24 Active Naproxen Sodium (Aleve) 220 MG Capsule Take by mouth. Activ e methylPREDNISol one (MEDROL DOSPACK) 4 MG Tablet Therapy PackIndications :Idiopathic gout, unspecified chronicity, unspecified site Take 1 Tablet by mouth See Admin Instructions. 21 Tablet 04/17/20 25 Active Additional Information Patient not taking.Reported on 05/23/2025 allopurinol (ZYLOPRIM) 100 MG TabletIndicatio ns:Idiopathic gout, unspecified chronicity, unspecified site Take 1 Tablet by mouth daily. 90 Tablet 3 04/30/20 25 Active tirzepatide-joan ght management (Zepbound) 2.5 MG/0.5ML Solution Auto-injector 2.5 mg by Subcutaneous route once a week. 1 mL 3 04/30/20 25 Active Pseudoeph-Doxyl ddhca-BF-VLIC (NYQUIL PO) Take by mouth. Act arabella allopurinol (ZYLOPRIM) 100 MG TabletIndicatio ns:Idiopathic gout, unspecified chronicity, unspecified site Take 1 Tablet by mouth daily. 90 Tablet 3 04/24/20 25 025 Discontin ued(Reord er) naproxen (NAPROSYN) 500 MG Tablet Take 1 Tablet by mouth 2 times daily (with meals). 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 Voice disturbance Overview (08/21/2015): Spastic Dysphonia Resolved Problems Problem Noted Date Diagnosed Date Resolved Date Snoring 06/15/2024 10/23/2024 Hypertension 05/04/2016 05/21/2022 Hyperlipidemia 02/24/2014 05/21/2022 Overview (04/03/2021): HYPERLIPIDEMIA NEC/NOS Encounters Date Type Department Care Team Description 05/23/2025 Nurse Triage [address] [address] Angie Arnold, Advice Only; Sinus Problem; Cough; Ear Pain 04/30/2025 1:20 PM CDT [facility] [place] [phone] Angie Arnold, DO Screening for depression (Primary Dx); Idiopathic gout, unspecified chronicity, unspecified site; B12 deficiency; Prostate cancer screening; Obesity (BMI 30-39.9); GOPAL (obstructive sleep apnea); Bunion of great toe of right foot; Abnormal finding of blood chemistry, unspecified; Colon cancer screening; Myalgia; Carpal tunnel syndrome on right Discharge Disposition: Discharged to home or Selfcare 04/30/2025 Telephone [facility] [place] [address] Angie Arnold DO Prior Authorization 04/30/2025 Travel 04/19/2025 2:40 PM CDT Clinical Support [facility] #[address] [place] [address] [facility] Dietary counseling (Primary Dx) Discharge Disposition: Discharged to home or Selfcare 04/17/2025 4:15 PM CDT Office Visit [facility] [address] [place] [address] Margarito Slaughter MD Idiopathic gout, unspecified chronicity, unspecified site (Primary Dx); Screening for prostate cancer; Obesity (BMI 30-39.9); Tobacco abuse Discharge Disposition: Discharged to home or Selfcare 04/17/2025 Travel 04/17/2025 Nurse Triage [facility] [address] [place] [address] Angie Arnold DO Gout; Ankle Swelling from Last 3 Months Immunizations Immunization Administration Dates Next Due Influenza Vaccine 07/09/2011 Influenza Vaccine, Quadrivalent, PF 07/22/2017,1 10/12/2015 PUR FLU 3+ YRS PRES FREE QUAD IM 08/12/2016 Family History Medical History Relation Name Comments Alcohol Abuse Father Diabetes Mother Relation Name Status Comments Father Mother Alive Social History Tobacco Use Types Packs/Day Years Used Date Smoking Tobacco: Former Cigarettes Q uit: 02/23/2019 Smokeless Tobacco: Never Tobacco Cessation:Counseling Given: Yes Alcohol Use Standard Drinks/Week Comments Not Currently 6 (1 standard drink = 0.6 oz pur e alcohol) [facility] Utilities Answer Date Recorded In the past 12 months has [employer], gas, oil, or water [employer] threatened to shut off services in your home? No 03/24/2024 Social Connection and Isolation Panel Answer Date Recorded In a typical week, how many times do you talk on the phone with family, friends, or neighbors? Once a week 03/24/2024 How often do you get together with friends or re latives? Twice a week 03/24/2024 Attends [employer] Services Not on file 03/24 Active Member [...] Date Recorded Total Score - Questions 1-9 9 04/11 [facility] - Occupational Stress Questionnaire Answer Date Recorded [...] were you homeless or living in a residential (including now)? No 03/24/2024 Education Answer Date [...] Sign Reading Time Taken Comments Blood Pressure 128/90 04/30/2025 1:05 PM CDT Pulse 103 04/30/2025 1:05 PM CDT Temperature 36.5 C (97.7 F) 04/30/2025 1:05 PM CDT Respiratory Rate 18 04/30/2025 1:05 PM CDT Oxygen Saturation 97% 04/30/2025 1:05 PM CDT Inhaled Oxygen Concentration - - Weight 124.3 kg (274 lb) 04/30/2025 1:05 PM CDT Height 175.3 cm (5' 9) 04/30/2025 1:05 PM CDT Body Mass Index 40.46 04/30/2025 1:05 PM CDT Plan of Treatment Upcoming Encounters Date Type Department Care Team (Late st Contact Info) Description 07/23/2025 1:00 PM CDT Office Visit [facility] - Pulmonology & Sleep Medicine [facility] [address] [place] [phone] Agatha Vallecillo APRN, LOOP MACHINE OPERATOR #2 [facility] [address] [place] [address] 08/03/2025 2:20 PM CDT Office Visit [facility] - Family Medicine - [place] [address] [place] [phone] Angie Arnold, DO [address] [place] [address] Health Maintenance Due Date Last Done Comments Cologuard 2007 Immunochemical Fecal Occult Blood 2007 Colonoscopy 12/19/2023 12/18/2013 Colorectal Cancer Screening 12/19/2023 Influenza Immunization Discontinued 7, 08/12/2016, 08/12/2016, Additional history exists Hepatitis C Virus (HCV) Screening Completed 09/13/2023 PSA Discussion Completed 04/30/2025, 03/11, 09/13/2023, Additional history exists Hepatitis B Immunization Aged Out No longer eligible based on patient's age to complete this topic Human Papillomavirus (HPV) Immunization Aged Out No longer eligible based on patient's age to complete this topic Meningococcal Immunization (ACWY) Aged Out No longer eligible based on patient's age to complete this topic Pneumococcal Immunization (50+ years) Discontinued Respiratory Syncytial Virus (RSV) Immunization (Adult) Discontinued Rotavirus Immunization Aged Out No lo nger eligible based on patient's age to complete this topic SARS-COV-2 Immunization Discontinued TdaP Immunization Discontinued Zoster Immunization Discontinued Procedures Procedure Name Priority Date/Time Associated Diagnosis Comments CBC WITH AUTO DIFFERENTIAL Routine 04/30/2025 2:17 PM CDT Idiopathic gout, unspecified chronicity, unspecified site Screening for depression B12 deficiency Prostate cancer screening Obesity (BMI 30-39.9) GOPAL (obstructive sleep apnea) CREATINE KINASE (CK) TOTAL Routine 04/30/2025 2:17 PM CDT Myalgia SAPNA SCREEN MULTIPLEX W/REFLEX DUSTIN Routine 04/30/2025 2:17 PM CDT Myalgia C-REACTIVE PROTEIN (CRP) QUANT Routine 04/30/2025 2:17 PM CDT Myalgia ERYTHROCYTE SEDIMENTATION RATE (ESR) Routine 04/30/2025 2:17 PM CDT Myalgia HEMOGLOBIN A1C W/ ESTIMATED GLUCOSE Routine 04/30/2025 2:17 PM CDT Obesity (BMI 30-39.9) GOPAL (obstructive sleep apnea) Abnormal finding of blood chemistry, unspecified VITAMIN B12 Routine 04/30/2025 2:17 PM CDT Idiopathic gout, unspecified chronicity, unspecified site Screening for depression B12 deficiency Prostate cancer screening Obesity (BMI 30-39.9) GOPAL (obstructive sleep apnea) PSA SCREEN Routine 04/30/2025 2:17 PM CDT Idiopathic gout, unspecified chronicity, unspecified site Screening for depression B12 deficiency Prostate cancer screening Obesity (BMI 30-39.9) GOPAL (obstructive sleep apnea) LIPID PANEL Routine 04/30/2025 2:17 PM CDT Idiopathic gout, unspecified chronicity, unspecified site Screening for depression B12 deficiency Prostate cancer screening Obesity (BMI 30-39.9) GOPAL (obstructive sleep apnea) CMP (COMPREHENSIVE METABOLIC PANEL) Routine 04/30/2025 2:17 PM CDT Idiopathic gout, unspecified chronicity, unspecified site Screening for depression B12 deficiency Prostate cancer screening Obesity (BMI 30-39.9) GOPAL (obstructive sleep apnea) COMPLETE BLOOD COUNT (CBC) WITH DIFF Routine 04/30/2025 2:17 PM CDT Idiopathic gout, unspecified chronicity, unspecified site Screening for depression B12 deficiency Prostate cancer screening Obesity (BMI 30-39.9) GOPAL (obstructive sleep apnea) HEPATITIS C ANTIBODY Routine 09/13/2023 1:50 PM DELIVERY AIDE Need for hepatitis C screening test [facility] COLONOSCOPY Routine 12/18/2013 from Last 3 Months or Most Recently Relevant to Health Maintenance Results * (ABNORMAL) HEMOGLOBIN A1C W/ ESTIMATED GLUCOSE (04/30/2025 2:17 PM CDT) HGB-A1C 6.4(H) 4.0 - 6.0 % 04/30/2025 3:35 PM CDT [facility] Est Average Glucose 137.0 mg/dL 04/30/2025 3:35 PM CDT [facility] Blood Venipuncture / Unknown 04/30/2025 2:17 PM CDT 04/30/2025 3:02 PM CDT Narrative [facility] - 04/30/2025 3:35 PM CDT HEMOGLOBIN A1C: DIABETIC PATIENTS: WELL-CONTROLLED: 6.2 - 7.0 INTERMEDIATE WELL-CONTROLLED: 7.0 - 9.0 POORLY-CONTROLLED: >9.0 Specimens containing greater than 5% of Hemoglobin F may result in lower than expected % HbA1C results. us Angie Arnold DO CHEMISTRY ORDERABLES Final Re sult [facility] [address] [place] [address] * CBC WITH AUTO DIFFERENTIAL (04/30/2025 2:17 PM CDT) WBC 7.46 4.00 - 12.00 10(3)/mcL 04/30/2025 3:05 PM CDT [facility] RBC 4.95 4.40 - 5.80 10(6)/mcL 04/30/2025 3:05 PM CDT [facility] HEMOGLOBIN (HGB) 15.5 13.0 - 16.5 g/dL 04/30/2025 3:05 PM CDT [facility] HEMATOCRIT (HCT) 47.0 38.0 - 50.0 % 04/30/2025 3:05 PM CDT [facility] MCV 94.9 82.0 - 96.0 fL 04/30/2025 3:05 PM CDT [facility] MCH 31.3 26.0 - 32.0 pg 04/30/2025 3:05 PM CDT [facility] MCHC 33.0 31.0 - 36.0 g/dL 04/30/2025 3:05 PM CDT [facility] PLATELET COUNT 229 140 - 440 10(3)/mcL 04/30/2025 3:05 PM CDT [facility] RDW 14.0 11.8 - 15.5 % 04/30/2025 3:05 PM CDT [facility] MPV 9.3 8.0 - 12.6 fL 04/30/2025 3:05 PM CDT [facility] NEUTROPHILS 64.9 40.0 - 68.0 % 04/30/2025 3:05 PM CDT [facility] LYMPHOCYTES 24.1 19.0 - 49.0 % 04/30/2025 3:05 PM CDT [facility] MONOCYTES 8.0 3.0 - 13.0 % 04/30/2025 3:05 PM CDT [facility] EOSINOPHILS 1.9 0.0 - 8.0 % 04/30/2025 3:05 PM CDT [facility] BASOPHILS 0.7 0.0 - 1.0 % 04/30/2025 3:05 PM [facility] IMMATURE GRANULOCYTE 0.4 0.0 - 0.4 % 04/30/2025 3:05 PM T [facility] Comment:Immature Granulocyte s includes Metamyelocytes, Myelocytes, and Promyelocytes. ABSOLUTE NEUTROPHILS 4.84 1.40 - 5.30 10(3)/[facility] 04/30/2025 3:05 PM [facility] ABSOLUTE LYMPHOCYTES 1.80 0.90 - 3.30 10(3)/[facility] 04/30/2025 3:05 PM [facility] ABSOLUTE MONOCYTES 0.60 0.10 - 0.90 10(3)/[facility] 04/30/2025 3:05 PM [facility] ABSOLUTE EOSINOPHIL 0.14 0.00 - 0.50 10(3)/[facility] 04/30/2025 3:05 PM [facility] ABSOLUTE BASOPHILS 0.05 0.00 - 0.10 10(3)/[facility] 04/30/2025 3:05 PM [facility] ABSOLUTE IMMATURE GRANULOCYTE 0.03 0.00 - 0.03 10 (3) mcL. 04/30/2025 3:05 PM T [facility] NRBC PER 100 WBC 0 04/30/20 25 3:05 PM CDT [facility] Blood Venipuncture / Unknown 04/30/2025 2:17 PM CDT 04/30/2025 3:02 PM CDT us Angie L Catalina DO HEMATOLOGY ORDERABLES Final R esult Performing Organization Address City/[facility]/ZIP Co de Phone Number [facility] [address] [place] [address] * (ABNORMAL) VITAMIN B12 (04/30/2025 2:17 PM CDT) VITAMIN B12 1,359(H) 213 - 816 pg/mL 04/30/2025 3:52 PM CDT [facility] Blood Venipuncture / Unknown 04/30/2025 2:17 PM CDT 04/30/2025 3:02 PM CDT us Angie L Catalina DO CHEMISTRY ORDERABLES Final Re sult Performing Organization Address [facility] Co de Phone Number [facility] [address] [place] [address] * (ABNORMAL) ERYTHROCYTE SEDIMENTATION RATE (ESR) (04/30/2025 2:17 PM CDT) ESR (SED RATE, ERYTHROCYTE SEDIMENTATION RATE) 29(H) <20 mm/h 04/30/2025 3:26 PM CDT [facility] Comment: Patients presenting with increased level of fibrinogen, gamma globulins, or abnormally shaped RBCs could affect the results for the erythrocyte sedimentation rate (ESR). Results should be clinically correlated. Blood Venipuncture / Unknown 04/30/2025 2:17 PM CDT 04/30/2025 3:02 PM CDT us Angie L Catalina DO HEMATOLOGY ORDERABLES Final R esult Performing Organization Address City/[facility]/ZIP Co de Phone Number [facility] [address] [place] [address] * PSA SCREEN (04/30/2025 2:17 PM CDT) PSA SCREEN, TOTAL 0.85 <4.00 ng/mL 04/30/2025 3:52 PM CDT [facility] Blood Venipuncture / Unknown 04/30/2025 2:17 PM CDT 04/30/2025 3:02 PM CDT Narrative [facility] - 04/30/2025 3:52 PM CDT The [employer] Total PSA assay is a Chemiluminescent Microparticle Immunoassay (CMIA) for the quantitative determination of total PSA (both free PSA and PSA complexed to [id number]) in human serum. Total PSA values obtained with different assay methods, including Willard PSA assays, cannot be used interchangeably. us Angie Arnold DO CHEMISTRY ORDERABLES Final Re sult [facility] [address] [place] [address] * (ABNORMAL) LIPID PANEL (04/30/2025 2:17 PM CDT) CHOLESTEROL 181 <200 mg/dL 04/30/2025 3:34 PM CDT [facility] TRIGLYCERIDES 307(H) <150 mg/dL 04/30/2025 3:34 PM CDT [facility] HDL CHOLESTEROL 42 >40 mg/dL 3:34 PM CDT [facility] LDL 78 <130 mg/dL 04/30/2025 3:34 PM CDT [facility] VLDL 61(H) 10 - 50 mg/dL 04/30/2025 3:34 PM CDT [facility] CHOL/HDL RATIO 4.3 0.0 - 4.4 04/30/2025 3:34 PM CDT [facility] NON-HDL CHOLESTEROL 139(H) <130 mg/dL 04/30/2025 3:34 PM CDT [facility] IS THE PATIENT REQUIRED TO BE FASTING? No 04/30/2025 3:34 PM CDT [facility] Blood Venipuncture / Unknown 04/30/2025 2:17 PM CDT 04/30/2025 3:02 PM CDT us Angie Arnold DO CHEMISTRY ORDERABLES Final Re sult Performing Organization Address City/[facility]/ZIP Co de Phone Number [facility] [address] [place] [address] * CREATINE KINASE (CK) TOTAL (04/30/2025 2:17 PM CDT) CK (CPK) 67 30 - 200 U/L 04/30/2025 3:34 PM CDT [facility] Blood Venipuncture / Unknown 04/30/2025 2:17 PM CDT 04/30/2025 3:02 PM CDT us Angie Arnold DO HEMATOLOGY ORDERABLES Final R esult Performing Organization Address City/[facility]/ZIP Co de Phone Number [facility] [address] [place] [address] * (ABNORMAL) CMP (COMPREHENSIVE METABOLIC PANEL) (04/30/2025 2:17 PM CDT) SODIUM 138 136 - 145 mmol/L 04/30/2025 3:34 PM CDT [facility] POTASSIUM 4.1 3.5 - 5.1 mmol/L 04/30/2025 3:34 PM CDT [facility] CHLORIDE 105 98 - 107 mmol/L 04/30/2025 3:34 PM CDT [facility] CO2, VENOUS 24 22 - 30 mmol/L 04/30/2025 3:34 PM CDT [facility] ANION GAP 13.1 <18.0 mmol/L 04/30/2025 3:34 PM CDT [facility] GLUCOSE 139(H) 70 - 99 mg/dL 04/30/2025 3:34 PM CDT [facility] BUN 16 8 - 26 mg/dL 04/30/2025 3:34 PM CDT [facility] CREATININE, BLOOD 0.89 0.70 - 1.30 mg/dL 04/30/2025 3:34 PM CDT [facility] BUN/CREATININE RATIO 18 12 - 20 ratio 04/30/2025 3:34 PM CDT [facility] TOTAL PROTEIN 7.1 6.0 - 8.0 g/dL 04/30/2025 3:34 PM T [facility] ALBUMIN 4.1 3.5 - 5.0 g/dL 04/30/2025 3:34 PM CDT [facility] A/G RATIO 1.4 1.0 - 2.2 04/30/2025 3:34 PM CDT [facility] CALCIUM 9.4 8.7 - 10.5 mg/dL 04/30/2025 3:34 PM T [facility] T BILI 0.3 0.2 - 1.2 mg/dL 04/30/2025 3:34 PM T [facility] SGOT (AST) 35 <43 U/L 04/30/2025 3:34 PM T [facility] SGPT (ALT) 89(H) <56 U/L 04/30/2025 3:34 PM CDT [facility] ALKALINE PHOSPHATASE 71 40 - 150 U/L 04/30/2025 3:34 PM T [facility] IS THE PATIENT REQUIRED TO BE FASTING? No 04/30/2025 3:34 PM CDT [facility] GFR, ESTIMATED >60 >=60 04/30/2025 3:34 PM CDT [facility] Comment: Creatinine Clearance is the preferred criteria for selecting drug dose adjustments in renally impaired patients. The GFR is provided as additional pertinent clinical information. GFR is reported in mL/min/1.73 sq m. Calculation based on the Chronic Kidney Disease Epidemiology Collaboration (CKD- EPI) equation refit without adjustment for race. GFR, EST. >60 >=60 025 3:34 PM CDT [facility] GFR, EST. NONAFRICAN >60 >=60 04/30/2025 3:34 PM CDT [facility] Blood Venipuncture / Unknown 04/30/2025 2:17 PM CDT 04/30/2025 3:02 PM CDT us Angie L Catalina DO CHEMISTRY ORDERABLES Final Re sult Performing Organization Address City/[facility]/ZIP Co de Phone Number [facility] [address] [place] [address] * (ABNORMAL) C-REACTIVE PROTEIN (CRP) QUANT (04/30/2025 2:17 PM CDT) C-REACTIVE PROTEIN 2.06(H) <0.50 mg/dL 04/30/2025 3:34 PM CDT [facility] Blood Venipuncture / Unknown 04/30/2025 2:17 PM CDT 04/30/2025 3:02 PM CDT us Angie L Catalina DO CHEMISTRY ORDERABLES Final Re sult [facility] [address] [place] [address] * SAPNA SCREEN MULTIPLEX W/REFLEX DUSTIN (04/30/2025 2:17 PM CDT) SAPNA SCR MULTIPLEX Negative Negative, See comment 04/30/2025 9:56 PM CDT [facility] Ven[facility] / Unknown 04/30/2025 2:17 PM CDT 04/30/2025 3:02 PM CDT Narrative [facility] - 04/30/2025 9:56 PM CDT Antibody testing was performed by multiplex flow immunoassay on the [employer] platform. Angie Arnold DO IMMUNOLOGY ORDERABLES Final R esult Performing Organization Address City/[facility] Co de Phone Number [facility] [address] [place] [address], [place] * HEPATITIS C ANTIBODY (09/13/2023 1:50 PM DELIVERY AIDE) hepatitis C antibody 0.08 <1 S/CO [facility] ARCH [id number] B 09/13/2023 9:19 PM DELIVERY AIDE [facility] Comment: Signal/Cutoff ratio < 0.79 is Nondetected Signal/Cutoff ratio 0.80-0.99 is Grayzone Signal/Cutoff ratio > 0.99 is Detected Supplemental assays are recommended if signal/cutoff ratio is >/=1.00. Signal/cutoff ratio result >/= 5.00 is 97% predictive of positivity for recombinant immunoblot assay (RIBA) and will be reported to the [place] Department of Public Health as required. Blood Venipuncture / Unknown 09/13/2023 1:50 PM DELIVERY AIDE 09/13/2023 1:50 PM DELIVERY AIDE Bruno Prather MD CHEMISTRY ORDERABLES Final Resul t Performing Organization Address [facility] de Phone Number [facility] [address] [place] [address], [place] * COLONOSCOPY (12/18/2013) Fletcher Brooke DO PROCEDURE/MINOR SURGICAL ORDERA BLES Final Result from Last 3 Months or Most Recently Relevant to Health Maintenance Insurance MEDICARE C [facility] Care Teams Douper Relationship Specialty Start Date End Date Angie Arnold DO 2 [facility] [address] [place] [address] PCP - General Family Medicine 03/24/24 Moshe Carrasco APRN, LOOP MACHINE OPERATOR [address] [place] [address] Nurse Practitioner Advanced Practice Nurse 05/11/24 Agatha Vallecillo APRN, LOOP MACHINE OPERATOR #2 [facility] [address] [place] [address] Nurse Practitioner Advanced Practice Nurse 06/15/24
--- OUTSIDE RECORDS SUMMARY | 2025-05-23 16:53 | XMS_ITS | Encounter Summary ---
Author Organization [facility] Address [address] [place] [address] Phone Care Team Providers Care Fuel Injection Servicer Name Role Phone Bruno Prather MD Primary Care Provider Angie Arnold DO Primary Care Provider [phone] Moshe Carrasco HOME CARE CONSULTANT, GOLF STARTER AND RANGER Unavailable + [phone] Agatha Vallecillo HOME CARE CONSULTANT, GOLF STARTER AND RANGER Unavailable [phone] Reason for Visit * Reason Comments Medication Refill Encounter Details Date Type Department Care Team (Late st Contact Info) Description 08/06/2023 Refill [facility] Medical Group - Family Medicine [facility] #2 [place] [id number] Bruno Prather MD #1 [place] [address] Medication Refill Social History Tobacco Use Types [...] 90 Capsule Bruno Prather MD [id number]... TAMSULOSIN HCL 0.4 MG CAPSULE 05/05/2023 90 90 Each Bruno Prather MD [id number] - W... Venlafaxine HCl Dispensed Days Supply Quantity Provider Pharmacy VENLAFAXINE HCL ER 150 MG CP24 08/04/2023 90 90 Capsule Bruno Prather MD [id number] - W... VENLAFAXINE HCL ER 150 MG CAP 05/07/2023 90 90 Each Bruno Prather MD [id number] - W... documented in this encounter Plan of Treatment Upcoming Encounters Date Type Department Care Team (Late st Contact Info) Description 07/23/2025 1:00 PM CDT Office Visit [facility] Medical [facility] - Pulmonology & Sleep Medicine [facility] #2 [place] [address] Agatha Vallecillo APRN, GOLF STARTER AND RANGER #2 [facility] [address] [place] [address] 08/03/2025 2:20 PM CDT Office Visit [facility] Medical Group - Family Medicine - [place] [address]2 [place] [phone] Angie Arnold, DO 2 [facility] [address] [place] [address] documented as of this encounter Visit Diagnoses Not on filedocumented in this encounter Additional Health Concerns Assessment Noted Time PHQ-9 Depression Total Score: 0 05/13/20 23 7:00 AM CDT documented as of this encounter Care Teams Fuel Injection Servicer Relationship Specialty Start Date End Date Bruno Prather MD PCP - General Family Medicine 10/28/20 03/21/24 Angie Arnold DO 2 [facility] [address] [place] [address] PCP - General Family Medicine 03/24/24 Moshe Carrasco APRN, GOLF STARTER AND RANGER #2 [place] [address] Nurse Practitioner Advanced Practice Nurse 05/11/24 Agatha Vallecillo APRN, GOLF STARTER AND RANGER #2 [facility] [address] [place] [address] Nurse Practitioner Advanced Practice Nurse 06/15/24 documented as of this encounter
--- OUTSIDE RECORDS SUMMARY | 2025-05-23 16:53 | XMS_ITS | Encounter Summary ---
Author Organization [facility] Address [address] [place] [address] Phone Care Team Providers Care Histopath Tech Name Role Phone Bruno Prather MD Primary Care Provider Angie Arnold DO Primary Care Provider Moshe Carrasco HUMAN INTELLIGENCE, CAMPGROUND CLEANING ATTENDANT Unavailable [phone] Agatha Vallecillo HUMAN INTELLIGENCE, CAMPGROUND CLEANING ATTENDANT Unavailable [phone] Reason for Visit * Reason Comments Medication Refill Encounter Details Date Type Department Care Team (Late st Contact Info) Description 03/14/2022 Refill [facility] Medical Group - Family Medicine [facility] #2 [place] [phone] Bruno Prather MD #1 [place] [address] Medication Refill Social History Tobacco Use Types [...] Description 07/23/2025 1:00 PM CDT Office Visit [facility] - Pulmonology & Sleep Medicine [facility] #2 [place] [address] Agatha Vallecillo APRN, CAMPGROUND CLEANING ATTENDANT #2 [facility] [address] [place] [address] 08/03/2025 2:20 PM CDT Office Visit [facility] Family Medicine - [place] #[address] [place] [address] Angie Arnold, 2 [facility] [address] [place] [address] documented as of this encounter Visit Diagnoses Not on filedocumented in this encounter Additional Health Concerns Assessment Noted Time PHQ-9 Depression Total Score: 0 07/18/20 20 3:34 PM CDT documented as of this encounter Care Teams Histopath Tech Relationship Specialty Start Date End Date Bruno Prather MD PCP - General Family Medicine 10/28/20 03/21/24 Angie Arnold DO 2 [facility] [address] [place] [address] PCP - General Family Medicine 03/24/24 Moshe Carrasco APRN, CAMPGROUND CLEANING ATTENDANT #2 [place] [address] Nurse Practitioner Advanced Practice Nurse 05/11/24 Agahta Vallecillo, MATEUS, CAMPGROUND CLEANING ATTENDANT #[address] [address] Nurse Practitioner Advanced Practice Nurse 06/15/24 documented as of this encounter
--- OUTSIDE RECORDS SUMMARY | 2025-05-23 16:53 | XMS_ITS | Encounter Summary ---
Author Organization [facility] Address [address] [place] [address] Phone Care Team Providers Care Channel Cementer Insole Machine Name Role Phone Bruno Prather MD Primary Care Provider [phone] Angie Arnold DO Primary Care Provider [phone] Moshe Carrasco CAPACITY MANAGEMENT SPECIALIST, WASH DRILLER Unavailable [phone] Agatha Vallecillo CAPACITY MANAGEMENT SPECIALIST, WASH DRILLER Unavailable [phone] Reason for Visit * Reason Comments Medication Refill Encounter Details Date Type Department Care Team (Late st Contact Info) Description 01/04/2023 Refill [facility] Medical Group - Family Medicine [facility] #2 [place] [address] Larry Vásquez MD #[address] [address] Medication Refill Social History Tobacco Use Types [...] Dept 01/04/23 Office Visit Bruno Prather MD [facility] 10/08/22 Office Visit Lincoln Rosario APRN, CEFERINO [facility] 05/21/22 Office Visit Bruno Prather MD [facility] Showing recent visits within past 365 days and meeting all other requirements Future Appointments No visits were found meeting these conditions. Showing future appointments within next 90 days and meeting all other requirements documented in this encounter Plan of Treatment Upcoming Encounters Date Type Department Care Team (Late st Contact Info) Description 07/23/2025 1:00 PM CDT Office Visit [facility] Medical [facility] - Pulmonology & Sleep Medicine - [place] #2 [place] [address] Agatha Vallecillo APRN, WASH DRILLER #[address] [address] 08/03/2025 2:20 PM CDT Office Visit [facility] Medical [facility] - Family Medicine - [place] #[address] [place] [address] Angie Arnold DO 2 [facility] [place] [address] documented as of this encounter Visit Diagnoses Not on filedocumented in this encounter Additional Health Concerns Assessment Noted Time PHQ-9 Depression Total Score: 13 022 1:00 PM CDT documented as of this encounter Care Teams Channel Cementer Insole Machine Relationship Specialty Start Date End Date Bruno Prather MD PCP - General Family Medicine 10/28/20 03/21/24 Angie Arnold DO 2 [facility] [place] [address] PCP - General Family Medicine 03/24/24 Moshe Carrasco APRN, WASH DRILLER #2 [place] [address] Nurse Practitioner Advanced Practice Nurse 05/11/24 Agatha Vallecillo APRN, CEFERINO #[address] [address] Nurse Practitioner Advanced Practice Nurse 06/15/24 documented as of this encounter
--- OUTSIDE RECORDS SUMMARY | 2025-05-23 16:53 | XMS_ITS | Encounter Summary ---
Author Organization [facility] Address [address] [place] [address] Phone Care Team Providers Care Internal Controls Consultant Name Role Phone Bruno Prather MD Primary Care Provider Angie Arnold DO Primary Care Provider [phone] Moshe Carrasco NEURODIAGNOSTIC TECHNICIAN, PARK POLICE Unavailable [phone] Agatha Vallecillo NEURODIAGNOSTIC TECHNICIAN, PARK POLICE Unavailable [phone] Reason for Visit * Reason Comments Medication Refill Encounter Details Date Type Department Care Team (Late st Contact Info) Description 01/07/2022 Refill [facility] Medical Group - Family Medicine [facility] #2 [place] [phone] Bruno Prather MD #1 [place] [address] Medication Refill Social History Tobacco Use Types [...] 12/30/21 Office Visit Lincoln Rosario APRN, CEFERINO [facility] [place] 11/20/21 Office Visit Bruno Prather MD [facility] 07/25/21 Office Visit Bruno Prather MD [facility] 04/03/21 Office Visit Bruno Prather MD [facility] 01/17/21 Office Visit Bruno Prather MD [facility] Showing recent visits within past 365 days and meeting all other requirements Future Appointments No visits were found meeting these conditions. Showing future appointments within next 90 days and meeting all other requirements documented in this encounter Plan of Treatment Upcoming Encounters Date Type Department Care Team (Late st Contact Info) Description 07/23/2025 1:00 PM CDT Office Visit [facility] Medical [facility] - Pulmonology & Sleep Medicine - [place] [address] [place] [address] Agatha Vallecillo APRN, PARK POLICE #[address] [address] 08/03/2025 2:20 PM CDT [facility] Visit [facility] - Family [facility] #2 [place] [address] Angie Arnold DO 2 [facility] ED [place] [address] documented as of this encounter Visit Diagnoses Not on filedocumented in this encounter Additional Health Concerns Assessment Noted Time PHQ-9 Depression Total Score: 0 07/18/20 20 3:34 PM CDT documented as of this encounter Care Teams Internal Controls Consultant Relationship Specialty Start Date End Date Bruno Prather MD PCP - General Family Medicine 10/28/20 03/21/24 Angie Arnold DO 2 [address] [place] [address] PCP - General Family Medicine 03/24/24 Moshe Carrasco APRN, PARK POLICE #[address] [place] [address] Nurse Practitioner Advanced Practice Nurse 05/11/24 Agatha Vallecillo APRN, PARK POLICE #[address] [address] [address] Nurse Practitioner Advanced Practice Nurse 06/15/24 documented as of this encounter
--- OUTSIDE RECORDS SUMMARY | 2025-05-23 16:53 | XMS_ITS | Encounter Summary ---
Author Organization [facility] Address [address] [place] [address] Phone Care Team Providers Care Coding And Reimbursement Specialist Name Role Phone Bruno Prather MD Primary Care Provider Angie Arnold DO Primary Care Provider [phone] Moshe Carrasco PRODUCT MANAGEMENT SPECIALIST, ELECTRIC WIRER Unavailable [phone] Agatha Vallecillo PRODUCT MANAGEMENT SPECIALIST, ELECTRIC WIRER Unavailable [phone] Reason for Visit * Reason Comments Medication Refill Encounter Details Date Type Department Care Team (Late st Contact Info) Description 07/27/2022 Refill [facility] Medical Group - Family Medicine [facility] #2 [place] [phone] Bruno Prather MD #1 [place] [address] Medication Refill Social History Tobacco Use Types [...] Description 07/23/2025 1:00 PM CDT Office Visit [facility] - Pulmonology & Sleep Medicine - [place] #2 [place] [address] Agatha Vallecillo APRN, ELECTRIC WIRER #2 [facility] [address] [place] [address] 08/03/2025 2:20 PM CDT Office Visit [facility] Medical [facility] - Family [facility] [place] #2 [place] [address] Angie Arnold DO 2 [facility] [address] [place] [address] documented as of this encounter Visit Diagnoses Diagnosis Anxiety Anxiety state, unspecified documented in this encounter Additional Health Concerns Assessment Noted Time PHQ-9 Depression Total Score: 022 1:00 PM CDT documented as of this encounter Care Teams Coding And Reimbursement Specialist Relationship Specialty Start Date End Date Bruno Prather MD PCP - General Family Medicine 10/28/20 03/21/24 Angie Arnold DO 2 [facility] [address] [place] [address] PCP - General Family Medicine 03/24/24 Moshe Carrasco APRN, ELECTRIC WIRER #2 [place] [address] Nurse Practitioner Advanced Practice Nurse 05/11/24 Agatha Vallecillo APRN, ELECTRIC WIRER #[address] [address] Nurse Practitioner Advanced Practice Nurse 06/15/24 documented as of this encounter
--- OUTSIDE RECORDS SUMMARY | 2025-05-23 16:53 | XMS_ITS | Encounter Summary ---
Author Organization [facility] Address [address] [place] [address] Phone Care Team Providers Care Laundry Helper Name Role Phone Bruno Prather MD Primary Care Provider [phone] Angie Arnold DO Primary Care Provider Moshe Carrasco CERTIFIED NOVELL ADMINISTRATOR, AVIONICS TEST TECHNICIAN Unavailable [phone] Agatha Vallecillo CERTIFIED NOVELL ADMINISTRATOR, AVIONICS TEST TECHNICIAN Unavailable [phone] Reason for Visit * Reason Comments Medication Refill Encounter Details Date Type Department Care Team (Late st Contact Info) Description 05/18/2022 Refill [facility] Medical Group - Family Medicine [facility] #2 [place] [address] Lincoln Rosario, MATEUS, AVIONICS TEST TECHNICIAN #[address] [address] Medication Refill Social History Tobacco Use Types [...] Dept 12/30/21 Office Visit Lincoln Rosario APRN, AVIONICS TEST TECHNICIAN [facility] 11/20/21 Office Visit Bruno Prather MD [facility] Showing recent visits within past 182 days and meeting all other requirements Future Appointments Date Type Provider Dept 05/21/22 Appointment Bruno Prather MD [facility] [place] Showing future appointments within next 90 days and meeting all other requirements Passed - Has an encounter in the past 6 months with a depression or anxiety visit diagnosis documented in this encounter Plan of Treatment Upcoming Encounters Date Type Department Care Team (Late st Contact Info) Description 07/23/2025 1:00 PM CDT Office Visit [facility] - Pulmonology & Sleep Medicine - [place] #[address] [place] [address] Agatha Vallecillo APRN, AVIONICS TEST TECHNICIAN #[address] [address] 08/03/2025 2:20 PM CDT Office Visit [facility] - Family [facility] #[address] [place] [address] Angie Arnold DO 2 [address] [place] [address] documented as of this encounter Visit Diagnoses Diagnosis Anxiety Anxiety state, unspecified documented in this encounter Additional Health Concerns Assessment Noted Time PHQ-9 Depression Total Score: 0 07/18/20 20 3:34 PM CDT documented as of this encounter Care Teams Laundry Helper Relationship Specialty Start Date End Date Bruno Prather MD PCP - General Family Medicine 10/28/20 03/21/24 Angie Arnold DO 2 [address] [place] [address] PCP - General Family Medicine 03/24/24 Moshe Carrasco APRN, AVIONICS TEST TECHNICIAN #[address] [place] [address] Nurse Practitioner Advanced Practice Nurse 05/11/24 Agatha Vallecillo APRN, AVIONICS TEST TECHNICIAN #[address] [address] [address] Nurse Practitioner Advanced Practice Nurse 06/15/24 documented as of this encounter
--- OUTSIDE RECORDS SUMMARY | 2025-05-23 16:53 | XMS_ITS | Encounter Summary ---
Author Organization [facility] Address [address] [place] [address] Phone Care Team Providers Care Bulk Folder Name Role Phone Bruno Prather MD Primary Care Provider [phone] Angie Arnold DO Primary Care Provider [phone] Moshe Carrasco PROJECT PRODUCTION ENGINEER, CONTROL VALVE MECHANIC Unavailable [phone] Agatha Vallecillo PROJECT PRODUCTION ENGINEER, CONTROL VALVE MECHANIC Unavailable [phone] Reason for Referral * Consult, Test & Initiate Treatment (Routine) - Closed Specialty Diagnoses / Procedures Referred By Gian luna Referred To Contact Diagnoses Other spondylosis with radiculopathy, lumbar region Bruno Prather MD Phone: tel: fax: [facility] [address] [address] Phone: tel: fax: Referral ID Status Reason Start Date Expiration Date Visits Re quested Visits Authorized [id number] Closed 12/02/2021 1 1 Scheduling Instructions Ryan is being referred to [facility] or other specialist in patient's insurance network [...] polyp 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 Voice disturbance Osteoarthritis of shoulder Lipid disorder Benign non-nodular prostatic hyperplasia with lower urinary tract symptoms Hypertension Drug-induced erectile dysfunction Physical exam, annual (Adult) Chronic idiopathic gout of multiple sites GOPAL on CPAP Dysuria Anxiety Hyperlipidemia Isthmic spondylolisthesis Other spondylosis with radiculopathy, lumbar region Arthritis of right hip T PERSON Reason for Visit * Reason Onset Date Comments Referral 12/02/2021 Encounter Details Date Type Department Care Team (Late st Contact Info) Description 12/02/2021 Telephone [facility] [address] [place] [address] Bruno Prather MD #1 [place] [address] Referral Social History Tobacco Use Types Packs/Day Years Used Date Smoking Tobacco: Former Cigarettes Q uit: 02/23/2019 Smokeless Tobacco: Never Alcohol Use Standard Drinks/Week Comments Not Currently 6 (1 standard drink = 0.6 oz pur e alcohol) PHQ-2 Answer Date Recorded Total Score - Questions 1-9 0 100 05/2020 Sexually Active Control Partners Comments Not [...] COVID-19? No / Unsure 11/20/2021 10:34 AM VAULT PERSON documented as of this encounter Miscellaneous Notes * Telephone Encounter - Bruno Prather MD - 12/02/2021 2:21 PM CST This is signed and sent. T PERSON * Telephone Encounter - Margarita Mar RN - 12/02/2021 1:49 PM VAULT PERSON Patient calling for new ortho referral. Patient states current ortho doc at [facility] on medical leave and not practicing. Patient was advised to call primary care provider for new referral. Referral pended. T PERSON documented in this encounter Plan of Treatment Upcoming Encounters Date Type Department Care Team (Late st Contact Info) Description 07/23/2025 1:00 PM CDT Office Visit [facility] Medical Group - Pulmonology & Sleep Medicine - [place] #2 [place] [address] Agatha Vallecillo APRN, CONTROL VALVE MECHANIC #2 [facility] [address] [place] [address] 08/03/2025 2:20 PM CDT Office Visit [facility] [place] #2 [place] [address] Angie Arnold DO 2 [facility] [place] [address] Scheduled Referrals Name Type Priority Associated Diagnoses [...] documented as of this encounter Care Teams Bulk Folder Relationship Specialty Start Date End Date Bruno Prather MD PCP - General Family Medicine 10/28/20 03/21/24 Angie Arnold DO 2 [facility] [place] [address] PCP - General Family Medicine 03/24/24 Moshe Carrasco APRN, CONTROL VALVE MECHANIC #2 [place] [address] Nurse Practitioner Advanced Practice Nurse 05/11/24 Agatha Vallecillo, MATEUS, CONTROL VALVE MECHANIC #[address] [address] Nurse Practitioner Advanced Practice Nurse 06/15/24 documented as of this encounter
--- OUTSIDE RECORDS SUMMARY | 2025-05-23 16:53 | XMS_ITS | Encounter Summary ---
Author Organization [facility] Address [address] [place] [address] Phone Care Team Providers Care Survey Cad Technician Name Role Phone Angie Arnold DO Primary Care Provider [phone] Moshe Carrasco SUPERVISOR PAPER PRODUCTS, GUN BARREL FINISHER Unavailable [phone] Agatha Vallecillo SUPERVISOR P[employer]ODUCTS, GUN BARREL FINISHER Unavailable [phone] Reason for Visit * Reason Onset Date Comments Advice Only 05/23/2025 Sinus Problem 05/23/2025 Cough 05/23/2025 Ear Pain 05/23/2025 Encounter Details Date Type Department Care Team (Late st Contact Info) Description 05/23/2025 Nurse Triage [facility] [address] [place] [address] Angie Arnold DO [address] [address] Advice Only; Sinus Problem; Cough; Ear Pain Social History Tobacco Use Types Packs/Day Years Used Date Smoking Tobacco: Former Cigarettes Q uit: 02/23/2019 Smokeless Tobacco: Never Alcohol Use Standard Drinks/Week Comments Not Currently 6 (1 standard drink = 0.6 oz pur e alcohol) [facility] Utilities Answer Date Recorded In [...] re latives? Twice a week 03/24/2024 Attends [employer] Not on file 03/24 Active Member [...] Total Score - Questions 1-9 9 04/11 [facility] - Occupational Stress [...] any time in the past 12 m [facility], were you homeless or living in a fdc (including now)? No 03/24/2024 Education Answer Date [...] encounter Miscellaneous Notes * Telephone Encounter - Nell Ulloa RN - 05/23/2025 4:01 PM CDT SITUATION: 65 y.o. with sinus congestion/pain, cough, earache, muscle aches BACKGROUND: Patient contacting PCP office. Onset of symptoms x3 days ASSESSMENT: Symptom Description / Location: Sinus congestion/pain Headache- on right side of head Cough Minimal clear phlegm, no exposure to COVID Chest congestion Wheezing- constant Light headed a few times after coughing fit Earache Congestion, ringing Muscle Aches Patient denies: difficulty breathing, chest pain, loss of consciousness Treatment / Response: nyquil with no relief. Pain rating: headache/sinus 4/10 Denies fever. RECOMMENDATION: Caller agreeable to highest disposition listed: Go to Office or Video Visit Now. Care advice provided per triage guideline. Caller verbalized understanding. Due to office unavailability within disposition, advised for patient to be seen at prompt care or urgent care. Caller agreeable to prompt care/urgent care. Allergies, pharmacy, and medications reviewed. Discussed utilizing MyRoll to: find [facility] or [facility] and schedule appointment with [facility] - Reason for Disposition: Wheezing is present . Protocols Used: Cough-A-OH Sinus Pain or Kztmtzevnq-B-IJ See care advice and disposition for Guideline. First positive answer recorded, all responses to prior questions were negative. If symptoms increase, change or if new symptoms develop, call your health care provider or call back. Recommendations were based on caller information and is not a diagnosis. Verified and reviewed all triage information with caller. * Telephone Encounter - Ashley Puri - 05/23/2025 4:00 PM CDT Symptoms: Sinus Symptoms, Earache, Chest Congestion, Cough Outcome: Transfer to stave saw operator queue Reason: Severe headache The caller accepted this outcome. Caller Denied: * Choked on something * Any trouble breathing through the mouth documented in this encounter Plan of Treatment Upcoming Encounters Date Type Department Care Team (Late st Contact Info) Description 07/23/2025 1:00 PM CDT Office Visit [facility] - Pulmonology & Sleep Medicine [facility] [address] [place] [id number] Agatha Vallecillo APRN, GUN BARREL FINISHER [address]2 [facility] [address] [place] [address] 08/03/2025 2:20 PM CDT Office Visit [facility] Medical [facility] - Family Medicine - [place] [address] [place] [id number] Angie Arnold, DO 2 [facility]. [address] [place] [address] documented as of this encounter Visit Diagnoses Not on filedocumented in this encounter Additional Health Concerns Assessment Noted Time PHQ-9 Depression Total Score: 9 04/30/20 25 2:00 PM CDT documented as of this encounter Care Teams Survey Cad Technician Relationship Specialty Start Date End Date Angie Arnold DO 2 [facility]. [address] [place] [address] PCP - General Family Medicine 03/24/24 Moshe aCrrasco, SUPERVISOR [employer], GUN BARREL FINISHER [address] [place] [address] Nurse Practitioner Advanced Practice Nurse 05/11/24 Agatha Vallecillo APRN, GUN BARREL FINISHER #2 [facility] [address] [place] [address] Nurse Practitioner Advanced Practice Nurse 06/15/24 documented as of this encounter
--- OUTSIDE RECORDS SUMMARY | 2025-05-23 16:53 | XMS_ITS | Encounter Summary ---
Author Organization [facility] Address [address] [place] [address] Phone Care Team Providers Care Competitive Athlete Name Role Phone Bruno Prather MD Primary Care Provider [phone] Angie Arnold DO Primary Care Provider Moshe Carrasco HEALTH COORDINATOR, KILN CHARGER Unavailable [phone] Agatha Vallecillo HEALTH COORDINATOR, KILN CHARGER Unavailable [phone] Reason for Visit * Reason Comments Medication Refill Encounter Details Date Type Department Care Team (Late st Contact Info) Description 10/18/2022 Refill [facility] [address] [place] [phone] Bruno Prather MD [address] [place] [address] Medication Refill Social History Tobacco Use Types [...] Coronavirus/COVID-19? No / Unsure 10/16/2022 9:32 AM PUBLIC SPEAKING PROFESSOR documented as of this encounter Miscellaneous Notes * Telephone Encounter - Iveth Brody RN - 10/19/2022 9:36 AM PUBLIC SPEAKING PROFESSOR Per nursing clinical judgement, provider to review [...] Dept 10/08/22 Office Visit Lincoln Rosario APRN, CNP [facility] 05/21/22 Office Visit Bruno Prather MD [facility] 12/30/21 Office Visit Lincoln Rosario APRN, CNP [facility] 11/20/21 Office Visit Bruno Prather MD [facility] Showing recent visits within past 365 days and meeting all other requirements Future Appointments Date Type Provider Dept 11/26/22 Appointment Bruno Prather MD [facility] Showing future appointments within next 90 days and meeting all other requirements Passed - Absence of nitrates on med list Passed - Erectile dysfunction on problem list IC SPEAKING PROFESSOR documented in this encounter Plan of Treatment Upcoming Encounters Date Type Department Care Team (Late st Contact Info) Description 07/23/2025 1:00 PM CDT Office Visit [facility] - Pulmonology & Sleep Medicine - [place] [address] [place] [address] Agatha Vallecillo APRN, KILN CHARGER [address] [address] 08/03/2025 2:20 PM CDT Office Visit [facility] - Family [facility] [address] [place] [address] Angie Arnold DO [address] [facility] [address] [place] [address] documented as of this encounter Visit Diagnoses Not on filedocumented in this encounter Additional Health Concerns Assessment Noted Time PHQ-9 Depression Total Score: 13 022 1:00 PM CDT documented as of this encounter Care Teams Competitive Athlete Relationship Specialty Start Date End Date Bruno Prather MD PCP - General Family Medicine 10/28/20 03/21/24 Angie Arnold DO [address] [facility] [address] [place] [address] PCP - General Family Medicine 03/24/24 Moshe Carrasco APRN, KILN CHARGER [address] [place] [address] Nurse Practitioner Advanced Practice Nurse 05/11/24 Agatha Vallecillo APRN, KILN CHARGER [address] [address] [address] Nurse Practitioner Advanced Practice Nurse 06/15/24 documented as of this encounter
[2025-05-23 16:56] VITALS: BP 138/82; PULSE 95; RESP 18; TEMP 36.3; O2SAT 96
[2025-05-23 17:20] LABS: EDCOVIDSCREEN Negative (Negative); EDINFLUASCREEN Negative (Negative); EDINFLUBSCREEN Negative (Negative); EDSTREPNEGPOS1 Negative (Negative)
== END 2025-05-23 17:26 | disposition home or self-care (01) ==
PROVIDERS: Emergency Provider Nurse Practitioner Family; PCP Student in an Organized Health Care Education/Training Program
DX: H66.91 Otitis media, unspecified, right ear (principal); J40 Bronchitis, not specified as acute or chronic; J06.9 Acute upper respiratory infection, unspecified; Z20.822 Contact with and (suspected) exposure to COVID-19; M10.9 Gout, unspecified
CPT/HCPCS: 87426; 87804; 87880; 99213; G0463